=== PATIENT | female | born 1965 | race Caucasian/White ===

== ENCOUNTER 2016-09-12 13:09 | Observation (INO) | payer OTHER ==
[2016-09-12] MEDS ORDERED: NITROGLYCERIN SUBLINGUAL 1/150 0.4 MG TAB SL ONE ×2 (13:29→20:59)
[2016-09-12] MEDS ORDERED: ASPIRIN 81 MG CHEWABLE TABLETS PO ONE (13:29)
[2016-09-12] MEDS ORDERED: ASPIRIN 81 MG CHEWABLE TABLETS ONE (13:32)
[2016-09-12] MEDS ORDERED: NITROGLYCERIN SUBLINGUAL 1/150 0.4 MG TAB ONE (13:33)
[2016-09-12 13:51] LABS: BASOPHIL 1.2 % (0-2.0); EOSINOPHIL 2.1 % (0-4.5); MCH 29.8 pg (25.7-33.7); MCHC 33.4 g/dl (32.0-36.0); MEAN CELL VOLUME 89.4 fl (80-96); MEAN PLT VOLUME 11.5 fl (7.5-11.1); NEUTROPHILS 65.4 % (42.8-82.8); PLATELET COUNT 238 K/MM3 (134-434); RDW 12.7 % (11.6-15.6); WHITE BLOOD COUNT 9.6 K/mm3 (4.0-10.0)
--- NOTE | 2016-09-12 13:53 | PDOC ---
History of Present Illness - General Chief Complaint: Chest Pain Stated Complaint: CHEST PAIN/PANIC ATTACK Time Seen by Provider: 09/12/16 13:13 History Source: Patient, Old Records Exam Limitations: No Limitations - History of Present Illness Initial Comments: 09/12/16 13:50 51-year-old female with past medical history of chronic neck pain presents to the emergency department for left-sided chest tightness reading down left arm. The patient reports that she was in her usual state health until about 12:00 PM , patient started developing tightness. No suspicion short of breath, nausea, vomiting, diaphoresis. Patient reports that the pain is constant despite no exertion. Patient is unsure if there is any exertional component. Denies recent illnesses, fevers, chills, cough, vomiting. Denies prior history of pulmonary embolisms or DVTs. Patient has no known family history of cardiac disease. She reports having a general stress test several years ago and believes it was negative. Past History - Past Medical History Allergies/Adverse Reactions: Allergies Allergy/AdvReac Type Severity Reaction Status Date / Time No Known Allergies Allergy Verified 09/12/16 13:12 Home Medications: Ambulatory Orders Gabapentin 300 mg PO TID 02/22/15 Gabapentin 600 mg PO HS 02/17/16 Aspirin Coated [Ecotrin -] 81 mg PO ASDIR 09/12/16 Anemia: No Asthma: No Cancer: No Cardiac Disorders: No CVA: No COPD: No CHF: No Dementia: No Diabetes: No GI Disorders: No Disorders: No HTN: No Hypercholesterolemia: No Liver Disease: No Seizures: No Thyroid Disease: No - Surgical History Orthopedic Surgery: Yes (Rt Hand) - Immunization History Immunization Up to Date: Yes - Psycho/Social/Smoking Cessation Hx Anxiety: No Suicidal Ideation: No Smoking History: Former smoker Have you smoked in the past 12 months: No Number of Cigarettes Smoked Daily: 10 If you are a former smoker, when did you quit?: 2010 Information on smoking cessation initiated: No Hx Alcohol Use: No Drug/Substance Use Hx: No Substance Use Type: None Hx Substance Use Treatment: No Review of Systems - Review of Systems Able to Perform ROS?: Yes Comments:: 09/12/16 13:51 GENERAL/CONSTITUTIONAL: No fever, weakness. HEAD, EYES, EARS, NOSE AND THROAT: No change in vision. No ear pain or discharge. No sore throat. CARDIOVASCULAR: +chest tightness. No shortness of breath. RESPIRATORY: No cough, wheezing, or hemoptysis. GASTROINTESTINAL: No abdominal pain, nausea, vomiting, diarrhea, or decreased PO intolerance. GENITOURINARY: No dysuria, frequency, or change in urination. MUSCULOSKELETAL: No joint or muscle swelling or pain. No neck or back pain. SKIN: No rash NEUROLOGIC: No headache, vertigo, loss of consciousness, or change in strength/ sensation. ENDOCRINE: No increased thirst. No abnormal weight change. HEMATOLOGIC/LYMPHATIC: No anemia, easy bleeding, or history of blood clots. ALLERGIC/IMMUNOLOGIC: No hives or skin allergy. *Physical Exam - Vital Signs Last Vital Signs Temp Pulse Resp BP Pulse Ox 98.7 F 71 20 103/78 100 09/12/16 13:15 09/12/16 13:21 09/12/16 13:21 09/12/16 13:21 09/12/16 13:21 - Physical Exam Comments: 09/12/16 13:51 GENERAL: Awake, alert, and fully oriented, in no acute distress. HEAD: No signs of trauma EYES: PERRLA, EOMI, sclera anicteric, conjunctiva clear ENT: Auricles normal inspection, hearing grossly normal, nares patent, oropharynx clear without exudates. NECK: Normal ROM, supple, no lymphadenopathy, JVD, or masses LUNGS: Breath sounds equal, clear to auscultation bilaterally. No wheezes, and no crackles HEART: Regular rate and rhythm, normal S1 and S2, no murmurs, rubs or gallops ABDOMEN: Soft, nontender, normoactive bowel sounds. No guarding, no rebound. No masses EXTREMITIES: Normal range of motion, no edema. No clubbing or cyanosis. No cords, erythema, or tenderness NEUROLOGICAL: Cranial nerves II through XII grossly intact. Normal speech, normal gait SKIN: Warm, Dry, normal turgor, no rashes or lesions noted. Heart Score/ECG Review - History History: Moderately suspicious - Electrocardiogram EKG: Normal - Age Age: 45-65 - Risk Factors Based on the list above the patient has:: No risk factors known - Troponin Troponin: </= normal limit - Score Heart Score - Total: 2 #1 ECG reviewed & interpreted by me at: 13:20 09/12/16 13:51 NSR 65, no std/tyra, T wave flat aVL, normal axis, normal intervals, good R wave progression, QTC 407 msec ED Treatment Course - LABORATORY CBC & Chemistry Diagram: 09/12/16 13:30 09/12/16 13:42 - RADIOLOGY Radiology Studies Ordered: Category Date Time Status CHEST X-RAY PORTABLE* [RAD] Stat Radiology 09/12/16 13:29 Ordered - Medications Given in the ED: ED Medications Discontinued Medications Generic Name Dose Route Start Last Admin Trade Name Gregoria PRN Reason Stop Dose Admin Aspirin 243 mg 09/12/16 13:29 09/12/16 13:41 Asa - PO 09/12/16 13:30 243 mg ONCE ONE Administration Nitroglycerin 0.4 mg 09/12/16 13:29 09/12/16 13:41 Nitrostat - SL 09/12/16 13:30 0.4 mg ONCE ONE Administration Medical Decision Making - Medical Decision Making 09/12/16 13:52 A portion of this note was documented by scribe services under my direction. I have reviewed the details of the note, within reason, and agree with the documentation with the following case summary and management plan written by me. Patient treated in the ED. Patient arrives by ambulance to the emergency department. Nursing notes are reviewed and incorporated into the medical decision-making. Vital signs reviewed. Peripheral IV access obtained by the nurse, laboratory studies are drawn and sent, reviewed and interpreted by myself. Vital Signs Temp Pulse Resp BP Pulse Ox 98.7 F 71 20 103/78 100 09/12/16 13:15 09/12/16 13:21 09/12/16 13:21 09/12/16 13:21 09/12/16 13:21 51-year-old female presents with left chest tightness with radiation to left arm. We'll need to rule out myocardial infarction. Labs including troponin, chest x-ray. We'll trial nitroglycerin. Patient already took one baby aspirin after her pain initiated. We'll give 240 mg a baby aspirin. 09/12/16 14:00 Nitro improved pain from 8 to 3. 09/12/16 14:54 CBC, BMP 09/12/16 13:30 09/12/16 13:42 CMP Sodium 135 mmol/L (136-145) L 09/12/16 13:42 Potassium 4.3 mmol/L (3.5-5.1) 09/12/16 13:42 Chloride 104 mmol/L (98-107) 09/12/16 13:42 Carbon Dioxide 26 mmol/L (22-28) 09/12/16 13:42 Anion Gap 5 (8-16) L 09/12/16 13:42 BUN 13 mg/dl (7-18) 09/12/16 13:42 Creatinine 0.8 mg/dl (0.6-1.3) 09/12/16 13:42 Creat Clearance w eGFR > 60 (>60) 09/12/16 13:42 Random Glucose 93 mg/dl (74-106) 09/12/16 13:42 Calcium 9.5 mg/dl (8.4-10.2) 09/12/16 13:42 Total Bilirubin 0.6 mg/dl (0.2-1.0) 09/12/16 13:42 AST 22 U/L (10-42) 09/12/16 13:42 ALT 17 U/L (10-40) D 09/12/16 13:42 Alkaline Phosphatase 55 U/L (32-92) 09/12/16 13:42 Creatine Kinase 103 IU/L (26-140) 09/12/16 13:42 Troponin I < 0.03 ng/ml (0.03-0.50) L 09/12/16 13:42 Total Protein 7.1 g/dl (6.4-8.3) 09/12/16 13:42 Albumin 4.3 g/dl (3.5-5.0) 09/12/16 13:42 Trop negative. Case discussed with Dr. Vuong. She accepts for tele observation. Case discussed in detail with admitting physician including history, physical exam and ancillary studies. Admitting physician has assumed care for the patient, will follow all pending diagnostics and will complete the evaluation and treatment. *DC/Admit/Observation/Transfer Diagnosis at time of Disposition: Sensation of chest tightness - Discharge Dispostion Condition at time of disposition: Stable Admit: Yes
[2016-09-12 14:12] LABS: ACTIVATED PTT 32.7 SECONDS (24.0-38.9)
[2016-09-12 14:15] LABS: ALBUMIN 4.3 g/dl (3.5-5.0); ALK PHOS 55 U/L (32-92); ANION GAP 5 (8-16); BILIRUBIN,TOTAL 0.6 mg/dl (0.2-1.0); CALCIUM 9.5 mg/dl (8.4-10.2); CO2 26 mmol/L (22-28); CPK(DFH) 103 IU/L (26-140); CREATININE 0.8 mg/dl (0.6-1.3); GLUCOSE,RANDOM 93 mg/dl (74-106); SGOT/AST 22 U/L (10-42); SGPT/ALT 17 U/L (10-40); TOT PROT 7.1 g/dl (6.4-8.3)
[2016-09-12 14:16] LABS: INR 1.12 (0.82-1.09); PROTHROMBIN TIME (PATIENT) 12.5 SEC (10.2-13.0)
[2016-09-12 14:31] LABS: TROPONIN I (DFP) < 0.03 ng/ml (0.03-0.50)
--- NOTE | 2016-09-12 15:57 | EKG ---
Test Reason : Blood Pressure : / mmHG Vent. Rate : 065 BPM Atrial Rate : 065 BPM P-R Int : 146 ms QRS Dur : 070 ms QT Int : 392 ms P-R-T Axes : 076 085 075 degrees QTc Int : 407 ms NORMAL SINUS RHYTHM NORMAL ECG NO PREVIOUS ECGS AVAILABLE Confirmed by LUIS TEJADA MD ([id number]) on 09/12/2016 3:56:52 PM Referred By: JAZZ PIERRE Confirmed By:LUIS TEJADA MD
[2016-09-12 17:15] VITALS: BMI 17.2
[2016-09-12 20:44] LABS: CPK(DFH) 92 IU/L (26-140)
[2016-09-12] MEDS ORDERED: ACETAMINOPHEN 325 MG TABLET (FP) PO PRN (20:59)
[2016-09-12 21:01] LABS: TROPONIN I (DFP) < 0.03 ng/ml (0.03-0.50)
--- NOTE | 2016-09-12 21:51 | HP ---
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 The pain is associated with a flushed feeling. Pain initially started around 12 noon, but was alleviated by nitroglycerin in the ED. She has had 2 further episodes since and states the pain is now a 5/10. The pain has never completely gone away since it started earlier today. Denies any SOB, palpitations or abdominal pain. Pt states that she and her family have had an increased stress level of late. Her son was murdered 18 months ago and she has not been the same since. ER course was notable for: (1) troponin neg (2) ECG WNL (3) CXR no acute diseas Recent Travel: pt denies PAST MEDICAL HISTORY: cervical arthritis right wrist/hand nerve damage PAST SURGICAL HISTORY: right wrist/hand Social History: Smoking: pt denies Alcohol: pt denies Drugs: pt denies Family History: mother alive and well, no medical problems father alive, "spinal stroke" at age 67, no other medical problems brother alive and well, no medical problems grandmother age 87, [place] grandfather alive, with renal stones, sepsis, currently hospitalized Allergies No Known Allergies Allergy (Verified 09/12/16 13:12) HOME MEDICATIONS: 3 Medication Instructions Recorded Gabapentin 300 mg PO TID 02/22/15 Gabapentin 600 mg PO HS 02/17/16 Aspirin Coated [Ecotrin -] 81 mg PO ASDIR 09/12/16 REVIEW OF SYSTEMS CONSTITUTIONAL: Present: diaphoresis, flushed feeling Absent: fever, chills, generalized weakness, malaise, loss of appetite, weight change HEENT: Absent: rhinorrhea, nasal congestion, throat pain, throat swelling, difficulty swallowing, mouth swelling, ear pain, eye pain, visual changes CARDIOVASCULAR: Present: chest pain Absent: syncope, palpitations, irregular heart rate, lightheadedness, peripheral edema RESPIRATORY: Absent: cough, shortness of breath, dyspnea with exertion, orthopnea, wheezing, stridor, hemoptysis GASTROINTESTINAL: Absent: abdominal pain, abdominal distension, nausea, vomiting, diarrhea, constipation, melena, hematochezia GENITOURINARY: Absent: dysuria, frequency, urgency, hesitancy, hematuria, flank pain, genital pain MUSCULOSKELETAL: Absent: myalgia, arthralgia, joint swelling, back pain, neck pain SKIN: Absent: rash, itching, pallor HEMATOLOGIC/IMMUNOLOGIC: Absent: easy bleeding, easy bruising, lymphadenopathy, frequent infections ENDOCRINE: Absent: unexplained weight gain, unexplained weight loss, heat intolerance, cold intolerance NEUROLOGIC: Absent: headache, focal weakness or paresthesias, dizziness, unsteady gait, seizure, mental status changes, bladder or bowel incontinence PSYCHIATRIC: Absent: anxiety, depression, suicidal or homicidal ideation, hallucinations. PHYSICAL EXAMINATION Vital Signs - 24 hr 3 09/12/16 09/12/16 09/12/16 15:27 16:40 16:45 Temperature 98.5 F 98.5 F Pulse Rate 69 69 Pulse Rate [ 60 Apical] Respiratory 18 18 18 Rate Blood Pressure 129/74 129/74 Blood Pressure 112/84 [Arm] O2 Sat by Pulse 100 99 99 Oximetry (%) GENERAL: Awake, alert, and fully oriented, in no acute distress. HEAD: Normal with no signs of trauma. EYES: Pupils equal, round and reactive to light, extraocular movements intact, sclera anicteric, conjunctiva clear. No lid lag. EARS, NOSE, THROAT: Ears normal, nares patent, oropharynx clear without exudates. Moist mucous membranes. NECK: Normal range of motion, supple without lymphadenopathy, JVD, or masses. LUNGS: Breath sounds equal, clear to auscultation bilaterally. No wheezes, and no crackles. No accessory muscle use. HEART: Regular rate and rhythm, normal S1 and S2 without murmur, rub or gallop. ABDOMEN: Soft, nontender, not distended, normoactive bowel sounds, no guarding, no rebound, no masses. No hepatomegaly or splenomegaly. MUSCULOSKELETAL: Normal range of motion at all joints. No bony deformities or tenderness. No CVA tenderness. UPPER EXTREMITIES: 2+ pulses, warm, well-perfused. No cyanosis. No clubbing. No peripheral edema. LOWER EXTREMITIES: 2+ pulses, warm, well-perfused. No calf tenderness. No peripheral edema. NEUROLOGICAL: Cranial nerves II-XII intact. Normal speech. Normal gait. PSYCHIATRIC: Cooperative. Good eye contact. Appropriate mood and affect. SKIN: Warm, dry, normal turgor, no rashes or lesions noted, normal capillary refill. Laboratory Results - last 24 hr 3 09/12/16 09/12/16 09/12/16 09/12/16 13:30 13:42 13:42 20:00 WBC 9.6 RBC 4.38 Hgb 13.1 Hct 39.2 MCV 89.4 MCHC 33.4 RDW 12.7 Plt Count 238 MPV 11.5 H D Neutrophils % 65.4 Lymphocytes % 26.4 D Monocytes % 4.9 Eosinophils % 2.1 Basophils % 1.2 INR 1.12 PTT (Actin FS) 32.7 Sodium 135 L Potassium 4.3 Chloride 104 Carbon Dioxide 26 Anion Gap 5 L BUN 13 Creatinine 0.8 Creat Clearance w eGFR > 60 Random Glucose 93 Calcium 9.5 Total Bilirubin 0.6 AST 22 ALT 17 D Alkaline Phosphatase 55 Creatine Kinase 103 92 Troponin I < 0.03 L < 0.03 L Total Protein 7.1 Albumin 4.3 Chest xray, portable: Impression. No evidence of active pneumonic disease. EC: NSR, rate 65, QTC 407. no sig ST changes 2049: NSR, rate 66, QTC 421, less than 1mm ST segment elevations noted 2, 3, avf , v2-v6 ASSESSMENT/PLAN: 51yF with PMH cervical arthritis, right hand neuropathy presented with chest pain. She has been admitted for further observation and evaluation. Chest pain - ECG with ? possible pericarditis vs normal variant. - start ibuprofen 600mg Q8H, if further w/u c/w pericarditis, add colchicine - ESR, CRP ordered - echo ordered, ? broken heart syndrome? - troponin neg x 2, trend x 1 more - cardiology consult wrist/hand neuropathy - cont home neurontin DVT PPX - chemoprophylaxis deferred, expected LOS <48h FEN - tolerating po, IVF not indicated - repeat labs in am - regular, low fat diet Dispo: Pt currently requires inpatient observation for management of her emergent condition. Visit type - Emergency Visit Emergency Visit: Yes ED Registration Date: 09/12/16 Care time: The patient presented to the Emergency Department on the above date and was hospitalized for further evaluation of their emergent condition. - New Patient This patient is new to me today: Yes Date on this admission: 09/12/16 - Critical Care Critical Care patient: No
[2016-09-12] MEDS ORDERED: GABAPENTIN 300 MG CAPSULE (FP) PO SCH ×2 (22:00)
[2016-09-12] MEDS ORDERED: PATIENT'S OWN MEDICATION (NON-FORMULARY) (Gabapentin [Gabapentin] 600 MG) PO SCH (22:00)
[2016-09-12] MEDS: IBUPROFEN 600 MG TABLET (FP) PO SCH (22:10)
[2016-09-13] MEDS: IBUPROFEN 600 MG TABLET (FP) PO SCH ×2 (06:18→13:58)
[2016-09-13] MEDS: GABAPENTIN 300 MG CAPSULE (FP) PO SCH ×2 (06:18→10:03)
--- NOTE | 2016-09-13 07:51 | CON.CARD ---
Consult Consult Specialty:: Cardiology Referred by:: Hospitalist Reason for Consultation:: Cardiac evaluation - History of Present Illness Chief Complaint: Chest pain History of Present Illness: Patient is a 51 year old female with no significant PMH, denies HTN, hypercholesterolemia or diabetes mellitus who presents with sharp left sided chest pain radiating to left arm. It is not related to exercise or exertion or deep breath. She denies shortness of breath or palpitations, however; patient had some palpitation last night while in the hospital. She denies paroxysmal nocturnal dyspnea or orthopnea. She denies fever or chills. She denies headache or lightheadedness. She denies any weakness both upper or lower extremities. ECG was unremarkable except for subtle ST changes suggestive of possible pericarditis vs. normal variant. but ESR and CRP was normal. Serial cardiac enzyme was normal. Cardiology consultation was called for further evaluation. Patient was given ASA and also was given Ibuprofen. - History Source History Provided By: Patient, Medical Record Limitations to Obtaining History: No Limitations - Past Medical History ...: No - Past Surgical History Additional Surgical History: Right wrist surgery - Alcohol/Substance Use Hx Alcohol Use: No History of Substance Use: reports: None - Smoking History Smoking history: Former smoker Have you smoked in the past 12 months: No Aproximately how many cigarettes per day: 10 If you are a former smoker, when did you quit?: 2010 Home Medications - Allergies Allergies/Adverse Reactions: Allergies Allergy/AdvReac Type Severity Reaction Status Date / Time No Known Allergies Allergy Verified 09/12/16 13:12 - Home Medications Home Medications: Ambulatory Orders Gabapentin 300 mg PO TID 02/22/15 Gabapentin 600 mg PO HS 02/17/16 Aspirin Coated [Ecotrin -] 81 mg PO ASDIR 09/12/16 Family Disease History - Family Disease History Family History: Denies Review of Systems - Review of Systems Constitutional: denies: Chills, Fever Cardiovascular: reports: Chest Pain. denies: Palpitations, Shortness of Breath Respiratory: denies: Cough, Hemoptysis, Orthopnea, PND, SOB, SOB on Exertion Gastrointestinal: denies: Abdominal Pain, Constipation, Diarrhea, Melena, Nausea , Rectal Bleeding, Vomiting Genitourinary: denies: Dysuria Neurological: denies: Dizziness, Headache, Seizure, Syncope Vital Signs: Vital Signs Temperature 97.7 F 09/13/16 06:00 Pulse Rate 53 L 03/29/17 06:00 Respiratory Rate 18 09/13/16 06:00 Blood Pressure 98/61 09/13/16 06:00 O2 Sat by Pulse Oximetry (%) 99 09/13/16 06:00 Neck: Yes: Supple Respiratory: Yes: CTA Bilaterally Gastrointestinal: Yes: Normal Bowel Sounds, Soft. No: Tenderness Cardiovascular: Yes: Regular Rate and Rhythm JVD: No Carotid Bruit: No PMI: Non-Displaced Heart Sounds: Yes: S1, S2. No: Gallop Murmur: No: Systolic Murmur, Diastolic Murmur Edema: No - Other Data Labs, Other Data: INR, PTT INR 1.12 (0.82-1.09) 09/12/16 13:42 Troponin, BNP 09/12/16 20:00 Troponin I < 0.03 L Laboratory Results - last 24 hr 09/12/16 09/12/16 09/12/16 13:30 13:42 13:42 WBC 9.6 RBC 4.38 Hgb 13.1 Hct 39.2 MCV 89.4 MCHC 33.4 RDW 12.7 Plt Count 238 MPV 11.5 H D Neutrophils % 65.4 Lymphocytes % 26.4 D Monocytes % 4.9 Eosinophils % 2.1 Basophils % 1.2 ESR INR 1.12 PTT (Actin FS) 32.7 Sodium 135 L Potassium 4.3 Chloride 104 Carbon Dioxide 26 Anion Gap 5 L BUN 13 Creatinine 0.8 Creat Clearance w eGFR > 60 Random Glucose 93 Calcium 9.5 Total Bilirubin 0.6 AST 22 ALT 17 D Alkaline Phosphatase 55 Creatine Kinase Troponin I C-Reactive Protein Total Protein 7.1 Albumin 4.3 09/12/16 09/12/16 09/12/16 13:42 20:00 21:50 WBC RBC Hgb Hct MCV MCHC RDW Plt Count MPV Neutrophils % Lymphocytes % Monocytes % Eosinophils % Basophils % ESR INR PTT (Actin FS) Sodium Potassium Chloride Carbon Dioxide Anion Gap BUN Creatinine Creat Clearance w eGFR Random Glucose Calcium Total Bilirubin AST ALT Alkaline Phosphatase Creatine Kinase 103 92 Troponin I < 0.03 L < 0.03 L C-Reactive Protein < 0.3 Total Protein Albumin 09/12/16 21:50 WBC RBC Hgb Hct MCV MCHC RDW Plt Count MPV Neutrophils % Lymphocytes % Monocytes % Eosinophils % Basophils % ESR 9 INR PTT (Actin FS) Sodium Potassium Chloride Carbon Dioxide Anion Gap BUN Creatinine Creat Clearance w eGFR Random Glucose Calcium Total Bilirubin AST ALT Alkaline Phosphatase Creatine Kinase Troponin I C-Reactive Protein Total Protein Albumin Sinus rhythm and likely normal but possible subtle ST changes ? pericarditis cannot be excluded Echo: Pending Imaging - Results Chest X-ray: Report Reviewed (Unremarkable) EKG: Report Reviewed Problem List - Problems (1) Chest pain Code(s): R07.9 - CHEST PAIN, UNSPECIFIED Qualifiers: Chest pain type: unspecified Qualified Code(s): R07.9 - Chest pain, unspecified Assessment/Plan 1. Chest pain, atypical, ?pleuritic, rule out pericarditis, possible musculoskeletal PLAN: 1.Transthoracic echocardiography to assess pericardium, LV and valvular function. 2. Further management pending above testing. Negative ESR and CRP goes against pericarditis and ECG does not confirm this as it is nonspecific 3. Continue ASA for now If above negative, discharge planning with short term use of Ibuprofen at a lower dose Further plans are to follow Efrain Sanderson MD
--- NOTE | 2016-09-13 09:08 | EKG ---
Test Reason : Blood Pressure : / mmHG Vent. Rate : 066 BPM Atrial Rate : 066 BPM P-R Int : 152 ms QRS Dur : 066 ms QT Int : 402 ms P-R-T Axes : 072 084 068 degrees QTc Int : 421 ms NORMAL SINUS RHYTHM NORMAL ECG WHEN COMPARED WITH ECG OF 12-SEP-2016 13:18, NO SIGNIFICANT CHANGE WAS FOUND Confirmed by ALEX SALVADOR MD ([id number] on 09/13/2016 9:08:07 AM Referred By: SHIKHA PALMER Confirmed By:ALEX SALVADOR MD
[2016-09-13 09:14] LABS: BASOPHIL 0.4 % (0-2.0); EOSINOPHIL 5.1 % (0-4.5); MCH 30.3 pg (25.7-33.7); MCHC 33.6 g/dl (32.0-36.0); MEAN CELL VOLUME 90.4 fl (80-96); MEAN PLT VOLUME 11.7 fl (7.5-11.1); NEUTROPHILS 50.5 % (42.8-82.8); PLATELET COUNT 215 K/MM3 (134-434); RDW 13.1 % (11.6-15.6); WHITE BLOOD COUNT 6.9 K/mm3 (4.0-10.0)
[2016-09-13 09:25] LABS: CPK(DFH) 85 IU/L (26-140)
[2016-09-13 09:28] LABS: CALCIUM 9.2 mg/dl (8.4-10.2); CREATININE 0.8 mg/dl (0.6-1.3); PHOSPHOROUS 3.9 mg/dl (2.5-4.6)
[2016-09-13 10:00] LABS: TROPONIN I (DFP) < 0.03 ng/ml (0.03-0.50)
[2016-09-13] MEDS ORDERED: PANTOPRAZOLE 20 MG TABLET (FP) PO SCH (10:00)
[2016-09-13] MEDS ORDERED: ASPIRIN COATED 81 MG TABLET.EC PO SCH (10:00)
--- NOTE | 2016-09-13 12:32 | DS ---
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 The pain is associated with a flushed feeling. Pain initially started around 12 noon, but was alleviated by nitroglycerin in the ED. She has had 2 further episodes since and states the pain is now a 5/10. The pain has never completely gone away since it started earlier today. Denies any SOB, palpitations or abdominal pain. Pt states that she and her family have had an increased stress level of late. Her son was murdered 18 months ago and she has not been the same since. ER course was notable for: (1) troponin neg (2) ECG WNL (3) CXR no acute diseas Vital Signs Period Temp Pulse Resp BP Sys/Jarvis Pulse Ox Last 24 Hr 97.7 F-98.5 F 53-86 18-18 96-129/55-84 99-100 PHYSICAL EXAM GENERAL: The patient is awake, alert, and fully oriented, in no acute distress. HEAD: Normal with no signs of trauma. EYES: PERRL, extraocular movements intact, sclera anicteric, conjunctiva clear. ENT: Ears normal, nares patent, oropharynx clear without exudates, moist mucous membranes. NECK: Trachea midline, full range of motion, supple. LUNGS: Breath sounds equal, clear to auscultation bilaterally, no wheezes, no crackles, no accessory muscle use. HEART: Regular rate and rhythm, S1, S2 without murmur, rub or gallop. ABDOMEN: Soft, nontender, nondistended, normoactive bowel sounds, no guarding, no rebound, no hepatosplenomegaly, no masses. EXTREMITIES: 2+ pulses, warm, well-perfused, no edema. NEUROLOGICAL: Cranial nerves II through XII grossly intact. Normal speech, gait not observed. PSYCH: Normal mood, normal affect. SKIN: Warm, dry, normal turgor, no rashes or lesions noted. LABS Laboratory Results - last 24 hr 09/12/16 09/12/16 09/12/16 20:00 21:50 21:50 WBC RBC Hgb Hct MCV MCHC RDW Plt Count MPV Neutrophils % Lymphocytes % Monocytes % Eosinophils % Basophils % ESR 9 Sodium Potassium Chloride Carbon Dioxide Anion Gap BUN Creatinine Random Glucose Hemoglobin A1c % Calcium Phosphorus Magnesium Creatine Kinase 92 Troponin I < 0.03 L C-Reactive Protein < 0.3 Triglycerides Cholesterol Total LDL Cholesterol HDL Cholesterol 09/13/16 09/13/16 09/13/16 07:00 07:00 07:00 WBC 6.9 RBC 4.30 Hgb 13.1 Hct 38.9 MCV 90.4 MCHC 33.6 RDW 13.1 Plt Count 215 MPV 11.7 H Neutrophils % 50.5 D Lymphocytes % 36.8 D Monocytes % 7.2 Eosinophils % 5.1 H D Basophils % 0.4 ESR Sodium 136 Potassium 4.2 Chloride 102 Carbon Dioxide 28 Anion Gap 6 L BUN 15 Creatinine 0.8 Random Glucose 98 Hemoglobin A1c % Calcium 9.2 Phosphorus 3.9 Magnesium 2.0 Creatine Kinase 85 Troponin I < 0.03 L C-Reactive Protein Triglycerides 87 Cholesterol 167 Total LDL Cholesterol 108 HDL Cholesterol 42 09/13/16 08:06 WBC RBC Hgb Hct MCV MCHC RDW Plt Count MPV Neutrophils % Lymphocytes % Monocytes % Eosinophils % Basophils % ESR Sodium Potassium Chloride Carbon Dioxide Anion Gap BUN Creatinine Random Glucose Hemoglobin A1c % 5.7 D Calcium Phosphorus Magnesium Creatine Kinase Troponin I C-Reactive Protein Triglycerides Cholesterol Total LDL Cholesterol HDL Cholesterol Laboratory Tests 09/12/16 09/12/16 09/13/16 13:42 20:00 07:00 Troponin I < 0.03 L < 0.03 L < 0.03 L IMAGING chest xray, portable: Impression. No evidence of active pneumonic disease. EC: NSR, rate 65, QTC 407. no sig ST changes 0: NSR, rate 66, QTC 421, less than 1mm ST segment elevations noted 2, 3, avf , v2-v6 echocardiogram: LV EF 70-75% normal systolic and diastolic function HOSPITAL COURSE: patient is a 51-year-old female was admitted from the emergency department to observation for chest pain rule out ACS. EKG was notable for less than [address] elevations questionable early pericarditis, colchicine was ordered, ESR and CRP resulted as negative. Echocardiogram noted to be WNL. Troponin 3 WNL. Cardiology was consulted. Date of Admission:09/12/16 Date of Discharge: 09/13/16 Minutes to complete discharge: 45 Discharge Summary Reason For Visit: CHEST PAIN Current Active Problems Chest tightness (Acute) Condition: Improved - Instructions Diet, Activity, Other Instructions: resume regular diet continue with ibuprofen as needed for pain resume all medications Return to the emergency department immediately with ANY new, persistent or worsening symptoms. You MUST call and follow up with your doctor tomorrow. Please make sure your doctor reviews the results of your hospital stay. Referrals: Efrain Sanderson MD [Staff Physician] - Disposition: HOME - Home Medications Comprehensive Discharge Medication List: Ambulatory Orders Gabapentin 300 mg PO TID 02/22/15 Gabapentin 600 mg PO HS 02/17/16 Aspirin Coated [Ecotrin -] 81 mg PO ASDIR 09/12/16 This patient is new to me today: Yes Date on this admission: 09/12/16 Emergency Visit: Yes ED Registration Date: 09/12/16 Care time: The patient presented to the Emergency Department on the above date and was hospitalized for further evaluation of their emergent condition. Critical Care patient: No - Discharge Referral Referred to [facility] No
[2016-09-13 15:15] VITALS: BP 96/54; PULSE 76; TEMP 98.2
== END 2016-09-13 15:20 | disposition home or self-care (01) ==
LOC: FER 13:09 → FM/S 14:59
PROVIDERS: ADMIT Internal Medicine; ATTEND Nurse Practitioner Family
DX: R07.89 Other chest pain (principal); G62.9 Polyneuropathy, unspecified; Z87.891 Personal history of nicotine dependence
CPT/HCPCS: 36415; 71010-TC; 80048; 80053; 80061; 82550; 83036; 83735; 84100; 84484; 85025; 85610; 85651; 85730; 86140; 93005; 93306-TC; 99285-25; G0378

== ENCOUNTER 2016-12-01 11:29 | Emergency (ER) | payer OTHER ==
--- NOTE | 2016-12-01 11:35 | PDOC ---
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 The pain is associated with a flushed feeling. 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 She was seated when her pain began. It is described as sharp and squeezing. She rates pain as "Severe". Pain starts in the center of the chest, radiates through out the chest and into upper arm. Symptoms associated with a squeezing , lasting several minutes and ends with a connors (which she likens to how you feel after a head connors) which causes her ears/face to be warm. No fevers or chills No cough She does have palpitations No chest wall trauma She was folding laundry yesterday but does not think this was excessive work for her Denies any SOB, palpitations or abdominal pain. She was admitted to the hospital in August Work up at that time included ECHO and EKG Concern was for pericarditis, but less likely given ECHO. She was discharged on Motrin which she took for several days and her pain resolved. She has had no pain since August PMH: cervical arthritis right wrist/hand nerve damage PSH: right wrist/hand Social: Smoking: pt denies Alcohol: pt denies Drugs: pt denies NKDA REVIEW OF SYSTEMS CONSTITUTIONAL: Present: diaphoresis, flushed feeling Absent: fever, chills, generalized weakness, malaise, loss of appetite, weight change HEENT: Absent: rhinorrhea, nasal congestion, throat pain, throat swelling, difficulty swallowing, mouth swelling, ear pain, eye pain, visual changes CARDIOVASCULAR: Present: chest pain Absent: syncope, palpitations, irregular heart rate, lightheadedness, peripheral edema RESPIRATORY: Absent: cough, shortness of breath, dyspnea with exertion, orthopnea, wheezing, stridor, hemoptysis GASTROINTESTINAL: Absent: abdominal pain, abdominal distension, nausea, vomiting, diarrhea, constipation, melena, hematochezia GENITOURINARY: Absent: dysuria, frequency, urgency, hesitancy, hematuria, flank pain, genital pain MUSCULOSKELETAL: Absent: myalgia, arthralgia, joint swelling, back pain, neck pain SKIN: Absent: rash, itching, pallor HEMATOLOGIC/IMMUNOLOGIC: Absent: easy bleeding, easy bruising, lymphadenopathy, frequent infections ENDOCRINE: Absent: unexplained weight gain, unexplained weight loss, heat intolerance, cold intolerance NEUROLOGIC: Absent: headache, focal weakness or paresthesias, dizziness, unsteady gait, seizure, mental status changes, bladder or bowel incontinence PSYCHIATRIC: Absent: anxiety, depression, suicidal or homicidal ideation, hallucinations. PHYSICAL EXAMINATION GENERAL: Awake, alert, and fully oriented, in no acute distress. HEAD: Normal with no signs of trauma. EYES: Pupils equal, round and reactive to light, extraocular movements intact, sclera anicteric, conjunctiva clear. No lid lag. EARS, NOSE, THROAT: Ears normal, nares patent, oropharynx clear without exudates. Moist mucous membranes. NECK: Normal range of motion, supple without lymphadenopathy, JVD, or masses. LUNGS: Breath sounds equal, clear to auscultation bilaterally. No wheezes, and no crackles. No accessory muscle use. HEART: Regular rate and rhythm, normal S1 and S2 without murmur, rub or gallop. ABDOMEN: Soft, nontender, not distended, normoactive bowel sounds, no guarding, no rebound, no masses. No hepatomegaly or splenomegaly. MUSCULOSKELETAL: Normal range of motion at all joints. No bony deformities or tenderness. No CVA tenderness. UPPER EXTREMITIES: 2+ pulses, warm, well-perfused. No cyanosis. No clubbing. No peripheral edema. LOWER EXTREMITIES: 2+ pulses, warm, well-perfused. No calf tenderness. No peripheral edema. NEUROLOGICAL: Cranial nerves II-XII intact. Normal speech. Normal gait. PSYCHIATRIC: Cooperative. Good eye contact. Appropriate mood and affect. SKIN: Warm, dry, normal turgor, no rashes or lesions noted, normal capillary refill. 12/01/16 11:37 12/01/16 11:50 12/01/16 11:53 Past History - Past Medical History Allergies/Adverse Reactions: Allergies Allergy/AdvReac Type Severity Reaction Status Date / Time No Known Allergies Allergy Verified 12/01/16 11:31 Home Medications: Ambulatory Orders Gabapentin 300 mg PO TID 02/22/15 Gabapentin 600 mg PO HS 02/17/16 Aspirin Coated [Ecotrin -] 81 mg PO PRN PRN 09/12/16 Ibuprofen [Motrin -] 600 mg PO Q8H tablet 09/13/16 Anemia: No Asthma: No Cancer: No Cardiac Disorders: No CVA: No COPD: No CHF: No Dementia: No Diabetes: No GI Disorders: No Disorders: No HTN: No Hypercholesterolemia: No Liver Disease: No Seizures: No Thyroid Disease: No - Surgical History Orthopedic Surgery: Yes (Rt Hand) - Immunization History Immunization Up to Date: Yes - Psycho/Social/Smoking Cessation Hx Anxiety: No Suicidal Ideation: No Smoking History: Former smoker Have you smoked in the past 12 months: No Number of Cigarettes Smoked Daily: 10 If you are a former smoker, when did you quit?: 2010 Hx Alcohol Use: No Drug/Substance Use Hx: No Substance Use Type: None Hx Substance Use Treatment: No ED Treatment Course - LABORATORY CBC & Chemistry Diagram: 12/01/16 12:06 12/01/16 12:06 Medical Decision Making - Medical Decision Making 12/01/16 11:57 Pt returns to the ER with complaints of chest pain/pressure DD includes ACS, Pneumonia, Pericarditic, pleural effusion Will do labs Will do EKG Pt will need to stay Cardiology consult 12/01/16 14:42 12/01/16 14:42 Laboratory Tests 09/13/16 12/01/16 12/01/16 07:00 12:06 12:06 WBC 6.9 7.7 Hgb 13.1 13.0 Hct 38.9 37.7 Plt Count 215 211 Anion Gap 8 Creatinine 0.9 Random Glucose 94 Creatine Kinase Troponin I 12/01/16 12:06 WBC Hgb Hct Plt Count Anion Gap Creatinine Random Glucose Creatine Kinase 147 H Troponin I < 0.03 L PT is asymptomatic Case reviewed with Dr Torrez He recommends outpatient work up Will repeat troponin 12/01/16 16:48 Laboratory Tests 12/01/16 15:51 Creatine Kinase 150 H Troponin I < 0.03 L PT understands the importance of following up She will do so as an outpatient Clinical impression: Chest pain *DC/Admit/Observation/Transfer Diagnosis at time of Disposition: Chest pain Qualifiers: Chest pain type: unspecified Qualified Code(s): R07.9 - Chest pain, unspecified - Discharge Dispostion Disposition: HOME Condition at time of disposition: Stable Admit: No - Referrals Referrals: Sage Spain MD [Staff Physician] - - Patient Instructions Printed Discharge Instructions: DI for Atypical Chest Pain, DI for Chest Pain Additional Instructions: Thank you for coming in to the ER today Please follow up with the Commercial Illustrator as you have NOT had a complete cardiac work up Please return to the ER for any other concerns or complaints, or a recurrence of your symptoms Please follow up with your primary physician Please review your lab results
[2016-12-01 11:40] VITALS: BP 128/82; PULSE 68; TEMP 98.1; BMI 19.8
[2016-12-01 12:38] LABS: BASOPHIL 0.7 % (0-2.0); EOSINOPHIL 2.8 % (0-4.5); MCH 30.6 pg (25.7-33.7); MCHC 34.4 g/dl (32.0-36.0); MEAN CELL VOLUME 89.1 fl (80-96); MEAN PLT VOLUME 11.2 fl (7.5-11.1); NEUTROPHILS 62.1 % (42.8-82.8); PLATELET COUNT 211 K/MM3 (134-434); RDW 12.3 % (11.6-15.6); WHITE BLOOD COUNT 7.7 K/mm3 (4.0-10.8)
[2016-12-01 12:39] LABS: CPK(DFH) 147 IU/L (26-140)
[2016-12-01 12:40] LABS: ALK PHOS 59 U/L (32-92); ANION GAP 8 (8-16); BILIRUBIN,TOTAL 0.5 mg/dl (0.2-1.0); CALCIUM 9.5 mg/dl (8.4-10.2); CO2 27 mmol/L (22-28); CREATININE 0.9 mg/dl (0.6-1.3); GLUCOSE,RANDOM 94 mg/dl (74-106); SGOT/AST 18 U/L (10-42); SGPT/ALT 13 U/L (10-40); TOT PROT 6.5 g/dl (6.4-8.3)
[2016-12-01 13:16] LABS: TROPONIN I (DFP) < 0.03 ng/ml (0.03-0.50)
[2016-12-01] MEDS ORDERED: LORazepam 0.5 MG TABLET PO ONE (14:54)
[2016-12-01] MEDS ORDERED: LORazepam 0.5 MG TABLET ONE (14:56)
[2016-12-01 16:34] LABS: CPK(DFH) 150 IU/L (26-140)
[2016-12-01 16:47] LABS: TROPONIN I (DFP) < 0.03 ng/ml (0.03-0.50)
[2016-12-01 17:13] LABS: CK MB 2.8 ng/ml (0.3-4.0)
--- NOTE | 2016-12-04 08:39 | EKG ---
Test Reason : Blood Pressure : / mmHG Vent. Rate : 060 BPM Atrial Rate : 060 BPM P-R Int : 156 ms QRS Dur : 066 ms QT Int : 404 ms P-R-T Axes : 061 074 053 degrees QTc Int : 404 ms SINUS RHYTHM WITH OCCASIONAL PREMATURE VENTRICULAR COMPLEXES OTHERWISE NORMAL ECG WHEN COMPARED WITH ECG OF 12-SEP-2016 19:50, PREMATURE VENTRICULAR COMPLEXES ARE NOW PRESENT Confirmed by MADELEINE ROSARIO, ALEX ([id number]) on 12/04/2016 8:39:13 AM Referred By: HUBER Confirmed By:ALEX SALVADOR MD
== END 2016-12-01 17:07 | disposition home or self-care (01) ==
LOC: FER 11:29
DX: R07.9 Chest pain, unspecified (principal); Z87.891 Personal history of nicotine dependence
CPT/HCPCS: 36415; 71020-TC; 80053; 82550; 82553; 84484; 85025; 93005; 99282-25

== ENCOUNTER 2017-06-15 11:08 | Emergency (ER) | payer OTHER ==
[2017-06-15 11:47] VITALS: BP 131/87; PULSE 89; TEMP 98.1; BMI 19.0
[2017-06-15] MEDS ORDERED: KETOROLAC TROMETHAMINE 60 MG/2 ML VIAL IM ONE (12:40)
--- NOTE | 2017-06-15 12:40 | PDOC ---
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 Since then she has had intermittent chronic pain. She has consulted her hand surgeon, in no further surgery was recommended. Over the last several days she has had increased pain. She has no new injury and does not use the hand for any repetitive movements. She has been taking Advil 600 mg without relief. Review of systems: Denies fever/chills, redness, swelling, induration. Social/family history reviewed and noncontributory Physical exam: Alert and oriented well-developed well-nourished no acute distress cheerful and cooperative Afebrile, vital signs normal Right hand: There is nodularity of the extensor pollicis longus as it crosses the wrist and proximal first metacarpal. It is tender to palpation. There is no erythema, swelling, induration, and no sign of injury including abrasion or laceration. Radial pulses full. Capillary refill is intact. There are no demonstrable focal sensory or motor deficits. Impression: Exacerbation of chronic wrist and hand pain secondary to tendon injury and surgery. Probably some reflex vasoconstriction and neuropathy Plan: Toradol and Vistaril administered with partial relief. Splinted and referred back to her hand surgeon for further evaluation and treatment. Instructed to rest ice and elevate the hand and take medication as directed until further evaluation Past History - Past Medical History Allergies/Adverse Reactions: Allergies Allergy/AdvReac Type Severity Reaction Status Date / Time No Known Allergies Allergy Verified 12/01/16 11:31 Home Medications: Ambulatory Orders Gabapentin 300 mg PO TID 02/22/15 Gabapentin 600 mg PO HS 02/17/16 Aspirin Coated [Ecotrin -] 81 mg PO PRN PRN 09/12/16 Hydroxyzine Pamoate [Vistaril -] 25 mg PO TID PRN #15 capsule 06/15/17 Ketorolac Tromethamine [Toradol] 10 mg PO Q6H #20 tablet 06/15/17 Anemia: No Asthma: No Cancer: No Cardiac Disorders: No CVA: No COPD: No CHF: No Dementia: No Diabetes: No GI Disorders: No Disorders: No HTN: No Hypercholesterolemia: No Liver Disease: No Seizures: No Thyroid Disease: No - Surgical History Orthopedic Surgery: Yes (Rt Hand) - Immunization History Immunization Up to Date: Yes - Suicide/Smoking/Psychosocial Hx Smoking History: Former smoker Have you smoked in the past 12 months: No Number of Cigarettes Smoked Daily: 10 If you are a former smoker, when did you quit?: 2010 Information on smoking cessation initiated: No Hx Alcohol Use: No Drug/Substance Use Hx: No Substance Use Type: None Hx Substance Use Treatment: No Trauma Specific PMHX - Complaint Specific PMHX Arthritis: Yes (right wrist surgery) *Physical Exam - Vital Signs Last Vital Signs Temp Pulse Resp BP Pulse Ox 98.1 F 89 18 131/87 98 06/15/17 11:09 06/15/17 11:09 06/15/17 11:09 06/15/17 11:09 06/15/17 11:09 Medical Decision Making - Medical Decision Making 06/15/17 14:30 Procedure note: Application of thumb spica At thumb spica splint was applied with fiberglass immobilizing the thumb on the left wrist and proximal forearm after splinting the patient was more comfortable. There was no distal numbness or tingling of the thumb. There was good capillary refill and good finger to motion. *DC/Admit/Observation/Transfer Diagnosis at time of Disposition: Tenosynovitis of right hand - Discharge Dispostion Disposition: HOME Condition at time of disposition: Improved Admit: No - Prescriptions Prescriptions: Hydroxyzine Pamoate [Vistaril -] 25 mg PO TID PRN #15 capsule PRN Reason: Pain Ketorolac Tromethamine [Toradol] 10 mg PO Q6H #20 tablet - Referrals - Patient Instructions Printed Discharge Instructions: DI for Tenosynovitis Additional Instructions: Rest, elevate, medication as directed. See orthopedist/hand surgeon if symptoms persist. - Post Discharge Activity
[2017-06-15] MEDS ORDERED: hydrOXYzine PAMOATE 25 MG CAPSULE (FP) PO ONE ×2 (12:41→12:55)
[2017-06-15] MEDS ORDERED: KETOROLAC TROMETHAMINE 60 MG/2 ML VIAL ONE (12:55)
== END 2017-06-15 13:57 | disposition home or self-care (01) ==
LOC: FER 11:08
PROC: 3E0233Z Introduction of Anti-inflammatory into Muscle, Percutaneous Approach (ICD-10-PCS; principal; 2017-06-15)
PROC: 2W3JX1Z Immobilization of Right Finger using Splint (ICD-10-PCS; 2017-06-15)
DX: M65.841 Other synovitis and tenosynovitis, right hand (principal); Z87.891 Personal history of nicotine dependence
CPT/HCPCS: 99282-25

== ENCOUNTER 2018-03-12 11:59 | Emergency (ER) | payer OTHER ==
[2018-03-12 12:13] VITALS: BP 126/53; PULSE 67; TEMP 98.3; BMI 19.5
[2018-03-12] MEDS ORDERED: ACETAMINOPHEN 325 MG TABLET (FP) PO ONE (12:23)
[2018-03-12] MEDS ORDERED: traMADol HCL 50 MG TABLET PO ONE (12:23)
[2018-03-12] MEDS ORDERED: ACETAMINOPHEN 325 MG TABLET (FP) ONE (12:38)
[2018-03-12] MEDS ORDERED: traMADol HCL 50 MG TABLET ONE (12:39)
[2018-03-12] MEDS ORDERED: REFRIGERATED ANITBIOTICS ONE (12:47)
--- NOTE | 2018-03-12 13:40 | PDOC ---
History of Present Illness - General Chief Complaint: Injury Stated Complaint: RIGHT HAND INJURY Time Seen by Provider: 03/12/18 12:05 - History of Present Illness Initial Comments: 03/12/18 13:35 52 years old past medical history significant for previous right hand tendon injury presents to the emergency department with injury to right wrist and right shoulder patient was picking up her granddaughter and felt a pop in her wrist and pain in her right shoulder. No direct trauma. 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 No other injury sustained. Past History - Past Medical History Allergies/Adverse Reactions: Allergies Allergy/AdvReac Type Severity Reaction Status Date / Time No Known Allergies Allergy Verified 03/12/18 12:03 Home Medications: Ambulatory Orders NK [No Known Home Medication] 03/12/18 Anemia: No Asthma: No Cancer: No Cardiac Disorders: No CVA: No COPD: No CHF: No Dementia: No Diabetes: No GI Disorders: No Disorders: No HTN: No Hypercholesterolemia: No Liver Disease: No Seizures: No Thyroid Disease: No - Surgical History Orthopedic Surgery: Yes (Rt Hand) - Immunization History Immunization Up to Date: Yes - Suicide/Smoking/Psychosocial Hx Smoking History: Former smoker Have you smoked in the past 12 months: No Number of Cigarettes Smoked Daily: 10 If you are a former smoker, when did you quit?: 10 YEARS AGO Information on smoking cessation initiated: Yes Hx Alcohol Use: No Drug/Substance Use Hx: No Substance Use Type: None Hx Substance Use Treatment: No Review of Systems - Review of Systems Comments:: 03/12/18 13:37 ROS: A complete review of 10 out of 10 review of systems is taken and is negative apart from what is previously mentioned below and in the HPI. *Physical Exam - Vital Signs Last Vital Signs Temp Pulse Resp BP Pulse Ox 98.3 F 67 16 126/53 L 100 03/12/18 12:01 03/12/18 12:01 03/12/18 12:01 03/12/18 12:01 03/12/18 12:01 - Physical Exam Comments: 03/12/18 13:37 Vitals: Triage Vital signs reviewed General Appearance: no acute distress, well nourished well developed, Neck: Supple;No Nucal rigidity Chest Wall: Nontender Cardiac: Regular rate and rhythym, no murmurs, no rubs, no gallops, Lungs: Clear to auscultation bilateral, good air movement bilaterally, Extremities: Full range of motion to all extremities, no cyanosis, clubbing, or edema, tenderness to palpation over the before meals joint as well as tenderness to palpation over the distal radius no scaphoid tenderness to palpation. Full range of motion. Skin: Warm and dry, no rashes or lesions, no rash, no petechiae Neuro: AOX3; Cranial Nerves 2-12 grossly intact, slightly decreased sock lining stitcher strength with, Sensation intact to all extremities,gait normal Psych: normal mood, normal affect ED Treatment Course - RADIOLOGY Radiology Studies Ordered: Category Date Time Status SHOULDER-RIGHT [RAD] Stat Radiology 03/12/18 12:30 Completed WRIST- RIGHT [RAD] Stat Radiology 03/12/18 12:30 Completed - Medications Given in the ED: ED Medications Discontinued Medications Generic Name Dose Route Start Last Admin Trade Name Freq PRN Reason Stop Dose Admin Acetaminophen 650 mg 03/12/18 12:23 03/12/18 12:40 Tylenol - PO 03/12/18 12:24 650 mg ONCE ONE Administration Tramadol HCl 50 mg 03/12/18 12:23 03/12/18 12:41 Ultram - PO 03/12/18 12:24 50 mg ONCE ONE Administration Medical Decision Making - Medical Decision Making 03/12/18 13:38 History examination consistent with likely wrist tendon sprain Pain medications given. X-rays negative for acute fracture dislocation. Patient placed in thumb spica splint provided with orthopedic follow-up Findings, the need for follow-up and strict return instructions discussed with patient. *DC/Admit/Observation/Transfer Diagnosis at time of Disposition: Musculoskeletal pain - Discharge Dispostion Disposition: HOME Condition at time of disposition: Stable Decision to Admit order: No - Referrals Referrals: Angus Rodriguez MD [Staff Physician] - - Patient Instructions Printed Discharge Instructions: Wrist Sprain Additional Instructions: Wear splint at all times. Follow-up with Dr. Hamm orthopedicruthy in 2 days. Ice affected area 20 minutes on 20 minutes off. Take one tablet twice a day. Take Tylenol as directed on package. Return to ED for any concerns. - Post Discharge Activity
== END 2018-03-12 13:55 | disposition home or self-care (01) ==
LOC: FER 11:59
PROC: 2W3GX1Z Immobilization of Right Thumb using Splint (ICD-10-PCS; principal; 2018-03-12)
DX: M79.1 Myalgia (principal); Z87.891 Personal history of nicotine dependence
CPT/HCPCS: 73030-TC-RT-FY; 73110-TC-RT-FY; 99281-25

== ENCOUNTER 2018-05-25 19:30 | Emergency (ER) | payer OTHER ==
[2018-05-25 19:34] VITALS: BP 138/101; PULSE 113; TEMP 98.4; BMI 19.5
--- NOTE | 2018-05-25 19:35 | PDOC ---
History of Present Illness - General History Source: Patient Exam Limitations: No Limitations - History of Present Illness Initial Comments: 05/25/18 19:53 The patient is a 52 year old female, with no significant past medical history, who presents to the emergency department with left hand pain after punching a wall during a verbal altercation about 40 minutes prior to arrival. She reports pain over the 5th metacarpal both dorsally and to the palmar aspect of the left hand. She denies numbness or tingling. She reportedly took Motrin prior to ED arrival with no relief. She states she is able to rotate her left wrist without reproducing pain. The patient denies chest pain, shortness of breath, headache and dizziness. The patient denies fever, chills, nausea, vomit, diarrhea and constipation. The patient denies dysuria, frequency, urgency and hematuria. Allergies: NKDA Past surgical history: none reported <Liz Matta - Last Filed: 05/25/18 19:53> <Mariela Delgado - Last Filed: 05/26/18 00:27> - General Chief Complaint: Injury Stated Complaint: LEFT HAND INJURY Time Seen by Provider: 05/25/18 19:33 Past History <Liz Matta - Last Filed: 05/25/18 19:53> - Past Medical History Anemia: No Asthma: No Cancer: No Cardiac Disorders: No CVA: No COPD: No CHF: No Dementia: No Diabetes: No GI Disorders: No Disorders: No HTN: No Hypercholesterolemia: No Liver Disease: No Seizures: No Thyroid Disease: No - Surgical History Orthopedic Surgery: Yes (Rt Hand) - Immunization History Immunization Up to Date: Yes - Suicide/Smoking/Psychosocial Hx Smoking History: Never smoked Have you smoked in the past 12 months: No Number of Cigarettes Smoked Daily: 10 If you are a former smoker, when did you quit?: 10 YEARS AGO Information on smoking cessation initiated: No Hx Alcohol Use: No Drug/Substance Use Hx: No Substance Use Type: None Hx Substance Use Treatment: No <Mariela Delgado - Last Filed: 05/26/18 00:27> - Past Medical History Allergies/Adverse Reactions: Allergies Allergy/AdvReac Type Severity Reaction Status Date / Time No Known Allergies Allergy Verified 03/12/18 12:03 Home Medications: Ambulatory Orders Oxycodone HCl/Acetaminophen [Percocet 5-325 mg Tablet] 1 tab PO Q6H PRN #10 tablet MDD 4 tabs 05/25/18 Trauma Specific PMHX - Complaint Specific PMHX Arthritis: Yes (right wrist surgery) <Mariela Delgado - Last Filed: 05/26/18 00:27> Review of Systems - Review of Systems Able to Perform ROS?: Yes Comments:: 05/25/18 19:54 CONSTITUTIONAL: Absent: fever, no chills, no fatigue EYES: Absent: visual changes ENT: Absent: ear pain, no sore throat CARDIOVASCULAR: Absent: chest pain, no palpitations RESPIRATORY: Absent: cough, no SOB GI: Absent: abdominal pain, no nausea, no vomiting, no constipation, no diarrhea GENITOURINARY: Absent: dysuria, no frequency, no hematuria MUSKULOSKELETAL: (+) Left hand pain. Absent: back pain, no myalgia SKIN: Absent: rash NEURO: Absent: headache <Liz Matta - Last Filed: 05/25/18 19:53> *Physical Exam - Vital Signs Last Vital Signs Temp Pulse Resp BP Pulse Ox 98.4 F 113 H 20 138/101 H 96 05/25/18 19:30 05/25/18 19:30 05/25/18 19:30 05/25/18 19:30 05/25/18 19:30 - Physical Exam Comments: 05/25/18 19:54 GENERAL: The patient is awake, alert, and fully oriented, in no acute distress. HEAD:[Normal with no signs of trauma. EYES: Pupils equal, round and reactive to light, extraocular movements intact, sclera anicteric, conjunctiva clear. EXTREMITIES: (+) Left hand has tenderness on palpation over the 5th metacarpal. Generalized mild edema to the left hand. No ecchymosis. No bony abnormalities. Pt able to range all digits of the left hand. Normal range of motion. NEUROLOGICAL: Normal speech, normal gait. PSYCH: Normal mood, normal affect. SKIN: Warm, Dry, normal turgor, no rashes or lesions noted. <Liz Matta - Last Filed: 05/25/18 19:53> - Vital Signs Last Vital Signs Temp Pulse Resp BP Pulse Ox 98.4 F 113 H 20 138/101 H 96 05/25/18 19:30 05/25/18 19:30 05/25/18 19:30 05/25/18 19:30 05/25/18 19:30 <Mariela Delgado - Last Filed: 05/26/18 00:27> Moderate Sedation - Procedure Monitoring Vital Signs: Procedure Monitoring Vital Signs Temperature 98.4 F 05/25/18 19:30 Pulse Rate 113 H 05/25/18 19:30 Respiratory Rate 20 05/25/18 19:30 Blood Pressure 138/101 H 05/25/18 19:30 O2 Sat by Pulse Oximetry (%) 96 05/25/18 19:30 <Liz Matta - Last Filed: 05/25/18 19:53> - Procedure Monitoring Vital Signs: Procedure Monitoring Vital Signs Temperature 98.4 F 05/25/18 19:30 Pulse Rate 113 H 05/25/18 19:30 Respiratory Rate 20 05/25/18 19:30 Blood Pressure 138/101 H 05/25/18 19:30 O2 Sat by Pulse Oximetry (%) 96 05/25/18 19:30 <Mariela Delgado - Last Filed: 05/26/18 00:27> Progress Note - Progress Note Progress Note: Documentation has been prepared under my direction and personally reviewed by me in its entirety. I attest that this documented accurately reflects all work, treatment, procedures and medical decision making performed by me. <Mariela Delgado - Last Filed: 05/26/18 00:27> Medical Decision Making - Medical Decision Making As noted above, this otherwise healthy 52-year-old woman presents with left hand edema and pain after she struck a wall with her fist. No other injury sustained. No previous history of left upper extremity injury. Exam as noted. Left hand/forearm x-rays performed. Preliminary interpretation by me: Minimally displaced fracture of the neck of the fifth metacarpal bone. No other fracture or dislocation seen. Using Ortho-Glass material, boxer fracture splint fashioned and secured using Dale wraps. No vascular functioning intact after placement of the splint. Patient will be given a sling; she should ice and elevate the area of the fracture as much as possible over the next 48 hours. Patient has been seen by Dr. Rodriguez in the past and referral information will be given to her. She should call the office on May 27 2 arrange follow-up within the next 24- 48 hours. If she has any worsening of pain or swelling prior to that, she should return to the emergency room. Small (#10) prescription for Percocet 5/325 will be transmitted to her pharmacy ; she can take up to 4 tabs a day, one tablet every 6 hours as needed for severe pain. For [id number] pain, ibuprofen/naproxen/acetaminophen can be used. <Mariela Delgado - Last Filed: 05/26/18 00:27> *DC/Admit/Observation/Transfer - Attestations Scribe Attestion: 05/25/18 19:54 Documentation prepared by Liz Matta, acting as medical office receptionist assistant for Mariela Delgado MD <Liz Matta - Last Filed: 05/25/18 19:53> <Mariela Delgado - Last Filed: 05/26/18 00:27> Diagnosis at time of Disposition: Closed fracture of 5th metacarpal Qualifiers: Encounter type: initial encounter Metacarpal location: neck Fracture alignment : nondisplaced Laterality: left Qualified Code(s): S62.367A - Nondisplaced fracture of neck of fifth metacarpal bone, left hand, initial encounter for closed fracture - Discharge Dispostion Disposition: HOME Condition at time of disposition: Stable - Prescriptions Prescriptions: Oxycodone HCl/Acetaminophen [Percocet 5-325 mg Tablet] 1 tab PO Q6H PRN #10 tablet MDD 4 tabs PRN Reason: Severe Pain - Referrals Referrals: Angus Rodriguez MD [Staff Physician] - - Patient Instructions Printed Discharge Instructions: Boxer's Fracture Additional Instructions: Ice/elevation of left hand as much as possible for the next 48 hours Wear sling when up and around Percocet 5/325 up to 4 times a day as needed for severe pain Can alternate with ibuprofen/naproxen/acetaminophen as needed for mild-to- moderate pain Call group on Sunday morning to arrange for follow-up as soon as possible Return to ER if you have severe pain/swelling of the hand
== END 2018-05-25 20:40 | disposition home or self-care (01) ==
LOC: FER 19:30
PROC: 2W3DX1Z Immobilization of Left Lower Arm using Splint (ICD-10-PCS; principal; 2018-05-25)
DX: S62.367A Nondisplaced fracture of neck of fifth metacarpal bone, left hand, initial encounter for closed fracture (principal); W22.01XA Walked into wall, initial encounter; Y93.89 Activity, other specified; Y92.89 Other specified places as the place of occurrence of the external cause
CPT/HCPCS: 73090-TC-LT-FY; 73130-TC-LT-FY; 99284-25

== ENCOUNTER 2018-08-12 10:03 | Inpatient (IN) | payer OTHER ==
--- NOTE | 2018-08-12 10:18 | PDOC ---
History of Present Illness - General Stated Complaint: CVA/TIA - History of Present Illness Initial Comments: Donato Haddad is a 53yo woman with a PMH of lupus who presents with right- sided facial weakness and "numbness" since she woke up this morning. She reports that she noticed that her face felt "funny" as soon as she woke up, but she initially thought it was from sleeping on that side of her body last night. She then noticed that the right side of her face was drooping. She decided to wait at home to see if it would improve. However, it did not improve and her convinced her to come to the hospital. She reports that she was completely well yesterday when she went to bed around 1am. In addition to the facial weakness, her noted that she was walking "funny" but neither noted any particular weakness. She denies any other recent symptoms including chest pain, SOB, fever/chills, syncope, recent illness, sick contacts, or prior neurological events. Her notes that she has been under a lot of stress and has been "yelling and screaming' a lot lately, but he also agrees that there have been no additional recent symptoms. NIH Stroke Scale - Last Known Well Date/Time & Onset Date Last Known Well: 08/12/18 Time Last Known Well: 01:00 - Initial Evaluation Level of consciousness: Alert Ask patient the month and their age: Answers both correctly Ask patient to open & close eyes; make fist and let go: Obeys both correctly Best gaze (horizontal eye movement): Normal Visual field testing: No visual field loss Facial paresis (Show teeth/raise eyebrows/close eyes tight): Minor paralysis ( flattened nasolabial fold, asymmetry on smiling) Motor Function: Left Arm: Normal Motor Function: Right Arm: Normal (extends arm 90 (or 45) degrees for 10 seconds without drift Motor Function: Left Leg: No effort against gravity Motor Function: Right Leg: Some effort against gravity Limb Ataxia: No ataxia Sensory(Use pinprick test arms,legs,trunk,face/side to side): Mild to moderate decrease in sensation Best language (Describe picture, name items, read sentences): No Aphasia Dysarthria (read several words): Normal articulation Extinction and Inattention: No abnormality - Total Score NIH Stroke Scale Score: 7 Past History - Past Medical History Allergies/Adverse Reactions: Allergies Allergy/AdvReac Type Severity Reaction Status Date / Time No Known Allergies Allergy Verified 08/12/18 10:23 Home Medications: Ambulatory Orders Gabapentin 300 mg PO BID 08/12/18 Anemia: No Asthma: No Cancer: No Cardiac Disorders: No CVA: No COPD: No CHF: No Dementia: No Diabetes: No GI Disorders: No Disorders: No HTN: No Hypercholesterolemia: No Liver Disease: No Seizures: No Thyroid Disease: No - Surgical History Orthopedic Surgery: Yes (Rt Hand) - Immunization History Immunization Up to Date: Yes - Suicide/Smoking/Psychosocial Hx Smoking History: Never smoked Have you smoked in the past 12 months: No Number of Cigarettes Smoked Daily: 10 If you are a former smoker, when did you quit?: 10 YEARS AGO Hx Alcohol Use: No Drug/Substance Use Hx: No Substance Use Type: None Hx Substance Use Treatment: No Review of Systems - Review of Systems Comments:: General: No fevers, no chills, no weight or appetite change, no malaise HEENT: No changes in vision, no changes in hearing, no congestion, no sore throat CV: No chest pain, no palpitations, no LE edema Pulm: No SOB, no cough, no wheezing GI: No nausea or vomiting, no change in bowel habits, no melena : No frequency, no urgency, no dysuria Musc: No back pain, no joint swelling, no recent injury Skin: No rash, no lesions, no erythema Endo: No excessive thirst, no heat/cold intolerance Heme: No unusual bruising or bleeding, no swollen glands Neuro: See HPI Vasc: No claudication Psych: No recent change in mood, no SI or HI *Physical Exam - Physical Exam Comments: General: Comfortable, no acute distress HEENT: PERRL, EOMI, MMM, voice normal, normal neck ROM, no LAD Cards: RRR, no murmur appreciated Pulm: Comfortable on room air, clear to auscultation bilaterally Abd: Soft, nontender, nondistended Ext: Atraumatic. No LE edema. Vasc: Extremities WWP. Palpable radial pulses bilaterally Skin: Normal color, no rashes or lesions Neuro: A&Ox3, weakness of lower right face, normal movement of eyebrow and forehead. No arm drift, 4/5 L hand strength and 5/5 R hand strength. Unable to hold L leg off bed against gravity. Strength at ankles 5/5 on right, 3/5 on left. Sensory abnormality to light touch on R face. Speech normal. Psych: Mood appropriate to situation ED Treatment Course - LABORATORY CBC & Chemistry Diagram: 08/12/18 12:32 08/12/18 10:37 Medical Decision Making - Medical Decision Making 08/12/18 10:42 Donato Haddad is a 53yo woman with a PMH of lupus who presents with right- sided facial weakness and sensory changes as well as left leg weakness that she noted when she woke up this morning. She was last known well when she went to bed at 1am. - Symptoms consistent with an acute stroke. Not a TPA candidate as last well was 9hrs ago - CVA/TIA labs ordered - Pt to CT head - Call placed to neurology for additional recommendations. If a thrombectomy candidate, may need a CTA 08/12/18 12:49 - Labs sent, pending - Neurology recommended CT head, CTA brain, MRI brain - completed. Reviewed; no abnormalities noted on CT or CTA. MRI read pending 08/12/18 13:27 - MRI completed - appears to be normal MRI, per radiology read - CBC and coags completed, unremarkable. - Plan to admit for additional workup and management Discussed with Dr Arnold. Magdalena Tran PGY1 *DC/Admit/Observation/Transfer Diagnosis at time of Disposition: Weakness of left side of body, Weakness on right side of face - Discharge Dispostion Decision to Admit order: Yes - Referrals - Patient Instructions - Post Discharge Activity
--- NOTE | 2018-08-12 10:34 | PDOC ---
Attending Attestation - HPI HPI: 08/12/18 11:18 The patient is a 53 year old female with a past medical history of lupus here today for evaluation of right sided facial weakness. The patient reports that she woke up this morning with right sided facial weakness and left leg weakness. 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 + 4+/5 left lower extremity weakness. AOX3; Cranial Nerves 2-12 grossly intact, Sensation intact to all extremities Psych: Normal mood, normal affect - Medical Decision Making 08/12/18 11:19 Documentation prepared by JORGE Mays, acting as medical or surgical instrument maker for Shine Arnold MD. The patient is a 53 year old female with a past medical history of lupus here today for evaluation of right sided facial weakness. <Meño Cox - Last Filed: 08/12/18 13:12> - Resident Resident Name: Magdalena Tran - ED Attending Attestation I have performed the following: I have examined & evaluated the patient, The case was reviewed & discussed with the resident, I agree w/resident's findings & plan, Exceptions are as noted - Critical Care Time Total Critical Care Time: 36 Critical Care Statement: The care of this patient involved high complexity decision making to prevent further life threatening deterioration of the patient 's condition and/or to evaluate & treat vital organ system(s) failure or risk of failure. 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 Patient was not a TPA candidate Neurology was consult did patient was sent to CAT scan for CT CTA then MRA brain Her imaging was unremarkable for stroke mass or acute occlusion Upon her return from imaging my repeat evaluation demonstrated a NIHSS stroke scale score of 0 We will observe overnight for neurology consultation and further management. <Shine Arnold - Last Filed: 08/12/18 15:42> Heart Score/ECG Review - ECG Impressions Comment:: 08/12/18 15:37 EKG performed at 10:15 AM demonstrates normal sinus rhythm no ST elevations or T -wave inversions. Interpreted by me. <Shine Arnold - Last Filed: 08/12/18 15:42> NIH Stroke Scale - Last Known Well Date/Time & Onset Date Last Known Well: 08/12/18 Time Last Known Well: 01:00 - Initial Evaluation Level of consciousness: Alert Ask patient the month and their age: Answers both correctly Ask patient to open & close eyes; make fist and let go: Obeys both correctly Best gaze (horizontal eye movement): Normal Visual field testing: No visual field loss Facial paresis (Show teeth/raise eyebrows/close eyes tight): Normal symmetrical movement Motor Function: Left Arm: Normal Motor Function: Right Arm: Normal (extends arm 90 (or 45) degrees for 10 seconds without drift Motor Function: Left Leg: Normal (extends leg 30 degrees for 5 seconds without drift) Motor Function: Right Leg: Normal (extends leg 30 degrees for 5 seconds without drift) Limb Ataxia: No ataxia Sensory(Use pinprick test arms,legs,trunk,face/side to side): Normal Best language (Describe picture, name items, read sentences): No Aphasia Dysarthria (read several words): Normal articulation Extinction and Inattention: No abnormality - Total Score NIH Stroke Scale Score: 0 <Shine Arnold - Last Filed: 08/12/18 15:42>
[2018-08-12] MEDS ORDERED: SODIUM CHLORIDE 1,000 ML IV SCH (10:45)
[2018-08-12 12:54] LABS: BASO % 1.1 % (0-2.0); EOS % 6.4 % (0-4.5); HEMOGLOBIN 12.1 GM/dL (10.7-15.3); LYMPH % 26.5 % (8-40); MCH 30.6 pg (25.7-33.7); MCHC 33.7 g/dl (32.0-36.0); MEAN CELL VOLUME 90.8 fl (80-96); MEAN PLT VOLUME 10.7 fl (7.5-11.1); MONO % 6.2 % (3.8-10.2); NEUT % 59.8 % (42.8-82.8); PLATELET COUNT 186 K/MM3 (134-434); RBC 3.97 M/mm3 (3.60-5.2); RDW 13.6 % (11.6-15.6); WHITE BLOOD COUNT 6.5 K/mm3 (4.0-10.0)
[2018-08-12 13:04] LABS: URINE APPEARANCE CLEAR; URINE BILIRUBIN NEGATIVE (<2.0 mg/dL); URINE COLOR LTYELLOW; URINE GLUCOSE (UA) NEGATIVE (NEGATIVE); URINE KETONE NEGATIVE (NEGATIVE); URINE LEUK ESTERASE TRACE (NEGATIVE); URINE NITRITE NEGATIVE (NEGATIVE); URINE PROTEIN NEGATIVE (NEGATIVE); URINE UROBILINOGEN NEGATIVE mg/dL (0.2-1.0)
[2018-08-12 13:27] LABS: INR 1.04 (0.83-1.09); PROTHROMBIN TIME (PATIENT) 12.3 SEC (9.7-13.0)
[2018-08-12 13:27] LABS: ALBUMIN 3.5 g/dl (3.4-5.0); ALK PHOS 61 U/L (45-117); ANION GAP 3 MMOL/L (8-16); BILIRUBIN,TOTAL 0.5 mg/dL (0.2-1); BLOOD UREA NITROGEN 19 mg/dL (7-18); CALCIUM 8.3 mg/dL (8.5-10.1); CHLORIDE 107 mmol/L (98-107); CHOLESTEROL 142 mg/dL (50-200); CO2 28 mmol/L (21-32); GLUCOSE,RANDOM 84 mg/dL (74-106); HDL CHOLESTEROL 49 mg/dL (40-60); POTASSIUM 4.1 mmol/L (3.5-5.1); SGOT/AST 17 U/L (15-37); SGPT/ALT 17 U/L (13-61); SODIUM 138 mmol/L (136-145); TOT PROT 6.4 g/dl (6.4-8.2); TRIGLYCERIDES 82 mg/dL (0-150)
[2018-08-12 14:39] LABS: EPI CELLS RARE /HPF (FEW)
[2018-08-12] MEDS ORDERED: ACETAMINOPHEN 325 MG TABLET (FP) PO ONE (16:12)
--- NOTE | 2018-08-12 17:05 | HP ---
Admitting History and Physical - Primary Care Physician PCP: Rosalinda Rodriguez - Admission History of Present Illness: 53 year old female with a past medical history of lupus here today for evaluation of right sided facial weakness. The patient reports that she woke up this morning with right sided facial weakness and left leg weakness. - Past Medical History Rheumatology: Yes: Lupus - Past Surgical History Past Surgical History: Yes: None - Smoking History Smoking history: Never smoked Have you smoked in the past 12 months: No Aproximately how many cigarettes per day: 10 If you are a former smoker, when did you quit?: 10 YEARS AGO - Alcohol/Substance Use Hx Alcohol Use: No History of Substance Use: reports: None Home Medications - Allergies Allergies/Adverse Reactions: Allergies Allergy/AdvReac Type Severity Reaction Status Date / Time No Known Allergies Allergy Verified 08/12/18 10:23 - Home Medications Home Medications: Ambulatory Orders Gabapentin 300 mg PO BID 08/12/18 Aspirin [ASA -] 81 mg PO DAILY #30 tab.chew 08/13/18 Review of Systems - Review of Systems Neurological: reports: Weakness (left leg, r sisded facial droop) Physical Examination Vital Signs: Vital Signs Temperature 99.2 F 08/12/18 10:03 Pulse Rate 75 08/12/18 12:53 Respiratory Rate 18 08/12/18 12:53 Blood Pressure 108/52 L 08/12/18 12:53 O2 Sat by Pulse Oximetry (%) 100 08/12/18 12:53 Constitutional: Yes: Calm HENT: Yes: Other (R side of face naso labial fold is flat) Cardiovascular: Yes: Regular Rate and Rhythm Respiratory: Yes: CTA Bilaterally Gastrointestinal: Yes: Normal Bowel Sounds Extremities: Yes: WNL Edema: No Peripheral Pulses WNL: Yes Neurological: Yes: Alert, Oriented ...Motor Strength: WNL Labs: CBC, BMP 08/12/18 12:32 08/12/18 10:37 Imaging - Results Cat Scan: Report Reviewed MRI: Report Reviewed Problem List - Problems (1) Weakness of left side of body Assessment/Plan: feeling much better have been walking Code(s): R53.1 - WEAKNESS (2) Weakness on right side of face Assessment/Plan: improves Code(s): R29.810 - FACIAL WEAKNESS (3) TIA (transient ischemic attack) Assessment/Plan: possible tia mri/ctscans wnl neuro on board Code(s): G45.9 - TRANSIENT CEREBRAL ISCHEMIC ATTACK, UNSPECIFIED Assessment/Plan Laboratory Tests 08/12/18 08/12/18 08/12/18 10:37 12:32 12:32 WBC 6.5 RBC 3.97 Hgb 12.1 Hct 36.0 MCV 90.8 MCH 30.6 MCHC 33.7 RDW 13.6 Plt Count 186 MPV 10.7 Absolute Neuts (auto) 3.9 Neutrophils % 59.8 Lymphocytes % 26.5 Monocytes % 6.2 Eosinophils % 6.4 H Basophils % 1.1 Nucleated RBC % 0 PT with INR 12.30 INR 1.04 PTT (Actin FS) Sodium 138 Potassium 4.1 Chloride 107 Carbon Dioxide 28 Anion Gap 3 L BUN 19 H Creatinine 1.0 Creat Clearance w eGFR 57.78 Random Glucose 84 Calcium 8.3 L Total Bilirubin 0.5 AST 17 ALT 17 Alkaline Phosphatase 61 Creatine Kinase 186 Creatine Kinase Index 0.8 CK-MB (CK-2) 1.5 Troponin I < 0.02 Total Protein 6.4 Albumin 3.5 Triglycerides 82 Cholesterol 142 Total LDL Cholesterol 79 HDL Cholesterol 49 Urine Color Urine Appearance Urine pH Ur Specific Fidelity Urine Protein Urine Glucose (UA) Urine Ketones Urine Blood Urine Nitrite Urine Bilirubin Urine Urobilinogen Ur Leukocyte Esterase Urine WBC (Auto) Urine RBC (Auto) Ur Epithelial Cells Blood Type Antibody Screen 08/12/18 08/12/18 08/12/18 12:32 12:32 12:55 WBC RBC Hgb Hct MCV MCH MCHC RDW Plt Count MPV Absolute Neuts (auto) Neutrophils % Lymphocytes % Monocytes % Eosinophils % Basophils % Nucleated RBC % PT with INR INR PTT (Actin FS) 32.5 Sodium Potassium Chloride Carbon Dioxide Anion Gap BUN Creatinine Creat Clearance w eGFR Random Glucose Calcium Total Bilirubin AST ALT Alkaline Phosphatase Creatine Kinase Creatine Kinase Index CK-MB (CK-2) Troponin I Total Protein Albumin Triglycerides Cholesterol Total LDL Cholesterol HDL Cholesterol Urine Color Ltyellow Urine Appearance Clear Urine pH 5.0 Ur Specific Fidelity > 1.060 H Urine Protein Negative Urine Glucose (UA) Negative Urine Ketones Negative Urine Blood 2+ H Urine Nitrite Negative Urine Bilirubin Negative Urine Urobilinogen Negative Ur Leukocyte Esterase Trace Urine WBC (Auto) <1 Urine RBC (Auto) 5 Ur Epithelial Cells Rare Blood Type O POSITIVE Antibody Screen Negative Active Medications Generic Name Dose Route Start Last Admin Trade Name Freq PRN Reason Stop Dose Admin Sodium Chloride 1,000 mls @ 42 mls/hr 08/12/18 10:45 08/12/18 11:11 Normal Saline - IV 42 mls/hr ASDIR TONY Administration Active Medications Generic Name Dose Route Start Last Admin Trade Name Freq PRN Reason Stop Dose Admin Acetaminophen 650 mg 08/12/18 17:10 Tylenol - PO Q6H PRN FEVER Heparin Sodium (Porcine) 5,000 unit 08/12/18 22:00 Heparin - SQ BID TONY Sodium Chloride 1,000 mls @ 42 mls/hr 08/12/18 10:45 08/12/18 11:11 Normal Saline - IV 42 mls/hr ASDIR TONY Administration
[2018-08-12] MEDS ORDERED: ACETAMINOPHEN 325 MG TABLET (FP) PO PRN (17:10)
--- NOTE | 2018-08-12 20:28 | EKG ---
Test Reason : Blood Pressure : / mmHG Vent. Rate : 066 BPM Atrial Rate : 066 BPM P-R Int : 140 ms QRS Dur : 064 ms QT Int : 374 ms P-R-T Axes : 072 080 061 degrees QTc Int : 392 ms NORMAL SINUS RHYTHM NORMAL ECG WHEN COMPARED WITH ECG OF 01-DEC-2016 11:56, PREMATURE VENTRICULAR COMPLEXES ARE NO LONGER PRESENT Confirmed by LUIS TEJADA MD ([id number]) on 08/12/2018 8:28:07 PM Referred By: Confirmed By:LUIS TEJADA MD
--- NOTE | 2018-08-12 21:46 | CON.NEURO ---
Consult Consult Specialty:: NEUROLOGY-JAQUAN ROSARIO - History of Present Illness History of Present Illness: Donato Haddad is a 53yo woman with a PMH of lupus who presents with right- sided facial weakness and "numbness" since she woke up this morning. She reports that she noticed that her face felt "funny" as soon as she woke up, but she initially thought it was from sleeping on that side of her body last night. She then noticed that the right side of her face was drooping. She decided to wait at home to see if it would improve. However, it did not improve and her convinced her to come to the hospital. Speech difficulty/left sided weakness she says lasted several hours today and resolved, right sided V2/3 numbness remains. States feels better. She reports that she was completely well yesterday when she went to bed around 1am. In addition to the facial weakness, her noted that she was walking "funny" but neither noted any particular weakness. She denies any other recent symptoms including chest pain, SOB, fever/chills, syncope, recent illness, sick contacts, or prior neurological events. Her notes that she has been under a lot of stress and has been "yelling and screaming' a lot lately, but he also agrees that there have been no additional recent symptoms. CT head, MRI brain, CTA brain-all reported without abn. - Past Medical History Rheumatology: Yes: Lupus - Past Surgical History Past Surgical History: Yes: None - Alcohol/Substance Use Hx Alcohol Use: No History of Substance Use: reports: None - Smoking History Smoking history: Never smoked Have you smoked in the past 12 months: No Aproximately how many cigarettes per day: 10 If you are a former smoker, when did you quit?: 10 YEARS AGO Home Medications - Allergies Allergies/Adverse Reactions: Allergies Allergy/AdvReac Type Severity Reaction Status Date / Time No Known Allergies Allergy Verified 08/12/18 10:23 - Home Medications Home Medications: Ambulatory Orders Gabapentin 300 mg PO BID 08/12/18 Physical Exam-Neuro Vital Signs: Vital Signs Temperature 98.4 F 08/12/18 18:00 Pulse Rate 72 08/12/18 18:00 Respiratory Rate 18 08/12/18 18:00 Blood Pressure 110/78 08/12/18 18:00 O2 Sat by Pulse Oximetry (%) 99 08/12/18 18:00 Labs: CBC, BMP 08/12/18 12:32 08/12/18 10:37 INR, PTT INR 1.04 (0.83-1.09) 08/12/18 12:32 - Neuro Exam Speech: WNL (No aphasia/dysarthria) Cranial Nerves II-XII Intact: No (Diminished right V2/V3 region touch/pin sensation) DTR's: 2+ Left Bicep, 2+ Right Bicep, 2+ Left Tricep, 2+ Right Tricep, 2+ Left Brachioradialis, 2+ Right Brachioradialis, 2+ Left Achilles, 2+ Right Achilles Motor Strength: 5/5: Left Arm, Right Arm, Left Leg, Right Leg Gait: Normal Assessment/Plan Pt. with hx of SLE by her report in remission, her symptoms/exam point to a post.fossa likely PICA territory TIA. Imaging to date without evid of infarct/ large vessel occlusion. Suggest: ASA 81mg daily, carotid doppler study, echocardiogram and rheumatologic parameters-HESHAM, RF, ESR, antiDS DNA. If she is stable may be discharged tomorrow, please ask her to f/u in my office [phone]. Thank you, Stephany Gonsales MD.
[2018-08-12 21:55] VITALS: BMI 20.3
[2018-08-12] MEDS: HEPARIN NA (PORCINE) 5,000 UNITS/ML 1ML VIAL SQ SCH (22:15)
[2018-08-13 04:21] VITALS: TEMP 97.8
[2018-08-13 07:03] VITALS: BP 129/70; PULSE 58
[2018-08-13 07:57] LABS: BASO % 1.9 % (0-2.0); HEMATOCRIT 34.4 % (32.4-45.2); HEMOGLOBIN 11.7 GM/dL (10.7-15.3); LYMPH % 41.2 % (8-40); MCH 30.6 pg (25.7-33.7); MCHC 33.9 g/dl (32.0-36.0); MEAN CELL VOLUME 90.5 fl (80-96); MEAN PLT VOLUME 11.2 fl (7.5-11.1); MONO % 7.9 % (3.8-10.2); PLATELET COUNT 179 K/MM3 (134-434); RBC 3.81 M/mm3 (3.60-5.2); RDW 13.6 % (11.6-15.6); WHITE BLOOD COUNT 6.2 K/mm3 (4.0-10.0)
[2018-08-13 09:01] LABS: ALBUMIN 3.1 g/dl (3.4-5.0); ALK PHOS 56 U/L (45-117); ANION GAP 5 MMOL/L (8-16); BILIRUBIN,TOTAL 0.4 mg/dL (0.2-1); BLOOD UREA NITROGEN 19 mg/dL (7-18); CALCIUM 8.5 mg/dL (8.5-10.1); CHLORIDE 110 mmol/L (98-107); CO2 26 mmol/L (21-32); CREATININE 0.9 mg/dL (0.55-1.3); GLUCOSE,RANDOM 85 mg/dL (74-106); POTASSIUM 4.4 mmol/L (3.5-5.1); SGOT/AST 11 U/L (15-37); SGPT/ALT 16 U/L (13-61); SODIUM 141 mmol/L (136-145); TOT PROT 5.8 g/dl (6.4-8.2)
[2018-08-13] MEDS ORDERED: ASPIRIN 81 MG CHEWABLE TABLETS PO SCH (10:00)
[2018-08-13] MEDS: HEPARIN NA (PORCINE) 5,000 UNITS/ML 1ML VIAL SQ SCH (10:04)
--- NOTE | 2018-08-13 11:49 | DS ---
Physical Examination Vital Signs: Vital Signs Temperature 97.8 F 08/13/18 02:00 Pulse Rate 58 L 08/13/18 06:00 Respiratory Rate 18 08/13/18 08:24 Blood Pressure 129/70 08/13/18 06:00 O2 Sat by Pulse Oximetry (%) 99 08/13/18 08:24 Constitutional: Yes: No Distress HENT: Yes: Atraumatic Neck: Yes: Supple Cardiovascular: Yes: Regular Rate and Rhythm Respiratory: Yes: CTA Bilaterally Gastrointestinal: Yes: Normal Bowel Sounds Extremities: Yes: WNL Edema: No Neurological: Yes: Alert, Oriented Labs: CBC, BMP 08/13/18 05:30 08/13/18 05:30 Discharge Summary Reason For Visit: WEAKNESS OF RT SIDE OF FACE AND BODY Current Active Problems TIA (transient ischemic attack) (Acute) Weakness of left side of body (Acute) Weakness on right side of face (Acute) - Instructions Diet, Activity, Other Instructions: see dr gonsales for further studies Referrals: Nasra Puckett [Primary Care Provider] - Charles Gonsales MD [Staff Physician] - Disposition: HOME - Home Medications Comprehensive Discharge Medication List: Ambulatory Orders Gabapentin 300 mg PO BID 08/12/18 Aspirin [ASA -] 81 mg PO DAILY #30 tab.chew 08/13/18 dc home fu with neuro as out patient will order carotid us
== END 2018-08-13 12:57 | disposition home or self-care (01) | DRG 69 ==
LOC: JER 10:03 → INTOOBSV 14:26 → JERBED 14:26 → J4W 20:04 → OBSVTOIN 08-13 10:35
PROVIDERS: ADMIT Internal Medicine; ATTEND Internal Medicine
DX: G45.9 Transient cerebral ischemic attack, unspecified (principal); M32.9 Systemic lupus erythematosus, unspecified; I69.992 Facial weakness following unspecified cerebrovascular disease
CPT/HCPCS: 36415; 70450-TC; 70496-TC; 70551-TC; 80053; 81003; 81015; 82465; 82550; 82553; 83718; 83721; 84478; 84484; 85025; 85610; 85730; 86850; 86900; 86901; 93005; 93010; 93880-TC; 99285-25; G0378; J1644; J7030

== ENCOUNTER 2018-10-11 09:55 | Observation (INO) | payer OTHER ==
[2018-10-11 10:12] VITALS: BMI 18.2
--- NOTE | 2018-10-11 10:46 | PDOC ---
History of Present Illness - General Chief Complaint: CVA/TIA Stated Complaint: NUMBNESS TO THE FACE Time Seen by Provider: 10/11/18 10:31 History Source: Patient Exam Limitations: No Limitations - History of Present Illness Initial Comments: 53 yo F presents with dec sensation to the L face, arm, and leg upon waking up at 9am this morning. She states that she feels like her face is asleep. It waxes and wanes. She had a prior TIA within the last year, came to this hospital. Denies changes in strength. As per at bedside, her last known normal was at 3:30am. She states she has been under high emotional stress. Her son was murdered a few years ago, and last night she saw a story about a murder on TV that triggered her. Denies DAN, LOC, cp, SOB. Past History - Past Medical History Allergies/Adverse Reactions: Allergies Allergy/AdvReac Type Severity Reaction Status Date / Time No Known Allergies Allergy Verified 10/11/18 10:50 Home Medications: Ambulatory Orders Gabapentin 300 mg PO BID 08/12/18 Aspirin [ASA -] 81 mg PO DAILY #30 tab.chew 08/13/18 Anemia: No Asthma: No Cancer: No Cardiac Disorders: No CVA: No COPD: No CHF: No Dementia: No Diabetes: No GI Disorders: No Disorders: No HTN: No Hypercholesterolemia: No Liver Disease: No Seizures: No Thyroid Disease: No - Surgical History Orthopedic Surgery: Yes (Rt Hand) - Immunization History Immunization Up to Date: Yes - Suicide/Smoking/Psychosocial Hx Smoking History: Former smoker Have you smoked in the past 12 months: No Number of Cigarettes Smoked Daily: 10 If you are a former smoker, when did you quit?: 10 YEARS AGO Information on smoking cessation initiated: No Hx Alcohol Use: No Drug/Substance Use Hx: No Substance Use Type: None Hx Substance Use Treatment: No Neuro Specific PMHX - Complaint Specific PMHX Glaucoma: No Review of Systems - Review of Systems Able to Perform ROS?: Yes Comments:: GENERAL/CONSTITUTIONAL: No fever or chills. No weakness. HEAD, EYES, EARS, NOSE AND THROAT: No change in vision. No ear pain or discharge. No sore throat. CARDIOVASCULAR: No chest pain or shortness of breath. RESPIRATORY: No cough, wheezing, or hemoptysis. GASTROINTESTINAL: No nausea, vomiting, diarrhea or constipation. GENITOURINARY: No dysuria, frequency, or change in urination. MUSCULOSKELETAL: No joint or muscle swelling or pain. No neck or back pain. SKIN: No rash. NEUROLOGIC: No headache, vertigo, loss of consciousness, or change in strength. +Dec sensation L face/LUE/LLE. ENDOCRINE: No increased thirst. No abnormal weight change. HEMATOLOGIC/LYMPHATIC: No anemia, easy bleeding, or history of blood clots. ALLERGIC/IMMUNOLOGIC: No hives or skin allergy. *Physical Exam - Vital Signs Last Vital Signs Temp Pulse Resp BP Pulse Ox 98.1 F 69 18 129/91 99 10/11/18 10:24 10/11/18 10:10 10/11/18 10:10 10/11/18 10:10 10/11/18 10:10 - Physical Exam Comments: GENERAL: Awake, alert, and fully oriented, in no acute distress HEAD: No signs of trauma EYES: PERRLA, EOMI, sclera anicteric, conjunctiva clear ENT: Auricles normal inspection, hearing grossly normal, nares patent, oropharynx clear without exudates. Moist mucosa NECK: Normal ROM, supple, no lymphadenopathy, JVD, or masses LUNGS: Breath sounds equal, clear to auscultation bilaterally. No wheezes, and no crackles HEART: Regular rate and rhythm, normal S1 and S2, no murmurs, rubs or gallops ABDOMEN: Soft, nontender, normoactive bowel sounds. No guarding, no rebound. No masses EXTREMITIES: Normal range of motion, no edema. No clubbing or cyanosis. No cords, erythema, or tenderness NEUROLOGICAL: Cranial nerves II through XII grossly intact. Normal speech, normal gait. Motor intact. Dec sensation to pinprick to L face, LUE, and LLE. SKIN: Warm, Dry, normal turgor, no rashes or lesions noted. NIH Stroke Scale - Last Known Well Date/Time & Onset Date Last Known Well: 10/11/18 Time Last Known Well: 03:30 - Initial Evaluation Level of consciousness: Alert Ask patient the month and their age: Answers both correctly Ask patient to open & close eyes; make fist and let go: Obeys both correctly Best gaze (horizontal eye movement): Normal Visual field testing: No visual field loss Facial paresis (Show teeth/raise eyebrows/close eyes tight): Normal symmetrical movement Motor Function: Left Arm: Normal Motor Function: Right Arm: Normal (extends arm 90 (or 45) degrees for 10 seconds without drift Motor Function: Left Leg: Normal (extends leg 30 degrees for 5 seconds without drift) Motor Function: Right Leg: Normal (extends leg 30 degrees for 5 seconds without drift) Limb Ataxia: No ataxia Sensory(Use pinprick test arms,legs,trunk,face/side to side): Mild to moderate decrease in sensation Best language (Describe picture, name items, read sentences): No Aphasia Dysarthria (read several words): Normal articulation Extinction and Inattention: No abnormality - Total Score NIH Stroke Scale Score: 1 tPA Exclusion checklist 3-4.5h - Thrombolytic Therapy Candidate Is patient eligible for thrombolytic therapy: No - Ineligibility reason(s) Reasons No tPA given: Outside of window - delayed arrival Critical Care Time/[facility] Note - Medical Decision Making Note: 10/11/18 10:51 Pt with prior history of TIA in the past presenting with L sided decresaed sensation. Last known well more than 4.5 hours ago, so out of the window for tPA. Will obtain CVA/TIA labs and discuss with neuro pending [facility]. 10/11/18 14:11 Pt accepted for admission by Dr. Oconnor. *DC/Admit/Observation/Transfer Diagnosis at time of Disposition: TIA (transient ischemic attack) - Discharge Dispostion Condition at time of disposition: Stable Decision to Admit order: Yes - Referrals - Patient Instructions - Post Discharge Activity
[2018-10-11 11:10] LABS: BASO % 1.4 % (0-2.0); EOS % 4.1 % (0-4.5); HEMATOCRIT 42.4 % (32.4-45.2); HEMOGLOBIN 14.1 GM/dL (10.7-15.3); LYMPH % 27.4 % (8-40); MCH 30.1 pg (25.7-33.7); MCHC 33.3 g/dl (32.0-36.0); MEAN CELL VOLUME 90.2 fl (80-96); MEAN PLT VOLUME 10.9 fl (7.5-11.1); MONO % 6.5 % (3.8-10.2); NEUT % 60.6 % (42.8-82.8); PLATELET COUNT 235 K/MM3 (134-434); RDW 13.7 % (11.6-15.6); WHITE BLOOD COUNT 7.4 K/mm3 (4.0-10.0)
[2018-10-11 11:15] LABS: PH,URINE 6.5 (5.0-8.0); URINE APPEARANCE CLEAR; URINE BACTERIA 9.6 /hpf (NEGATIVE); URINE BILIRUBIN NEGATIVE (NEGATIVE); URINE CASTS 0 /lpf (0-8); URINE COLOR YELLOW; URINE GLUCOSE (UA) NEGATIVE (NEGATIVE); URINE KETONE NEGATIVE (NEGATIVE); URINE LEUK ESTERASE TRACE (NEGATIVE); URINE NITRITE NEGATIVE (NEGATIVE); URINE PROTEIN NEGATIVE (NEGATIVE); URINE RBC 8 /hpf (0-4); URINE UROBILINOGEN 0.2 mg/dL (0.2-1.0); URINE WBC 1 /hpf (0-5)
[2018-10-11 11:41] LABS: ALK PHOS 67 U/L (45-117); ANION GAP 4 MMOL/L (8-16); BILIRUBIN,TOTAL 0.4 mg/dL (0.2-1); BLOOD UREA NITROGEN 18 mg/dL (7-18); CALCIUM 9.5 mg/dL (8.5-10.1); CHLORIDE 106 mmol/L (98-107); CHOLESTEROL 165 mg/dL (50-200); CO2 30 mmol/L (21-32); CREATININE 0.9 mg/dL (0.55-1.3); GLUCOSE,RANDOM 87 mg/dL (74-106); HDL CHOLESTEROL 54 mg/dL (40-60); INR 1.04 (0.83-1.09); POTASSIUM 4.4 mmol/L (3.5-5.1); PROTHROMBIN TIME (PATIENT) 12.3 SEC (9.7-13.0); SGOT/AST 16 U/L (15-37); SGPT/ALT 22 U/L (13-61); SODIUM 140 mmol/L (136-145); TOT PROT 7.6 g/dl (6.4-8.2); TRIGLYCERIDES 130 mg/dL (0-150)
[2018-10-11] MEDS ORDERED: ONDANSETRON 4 MG/2 ML VIAL IVPUSH ONE (13:19)
[2018-10-11] MEDS ORDERED: ONDANSETRON 4 MG/2 ML VIAL ONE (13:21)
--- NOTE | 2018-10-11 14:42 | HP ---
Admitting History and Physical - Admission History of Present Illness: 53 yo F presents with dec sensation to the L face, arm, and leg upon waking up at 9am this morning. She states that she feels like her face is asleep. It waxes and wanes. She had a prior TIA within the last year, came to this hospital. Denies changes in strength. As per at bedside, her last known normal was at 3:30am. She states she has been under high emotional stress. Her son was murdered a few years ago, and last night she saw a story about a murder on TV that triggered her. Denies DAN, LOC, cp, SOB. in the morning today the noticed that her face dropping and her voice slurred so brought her to ER,patient took baby aspirin prior to comming to ER History Source: Patient, Family Member - Past Medical History Rheumatology: Yes: Lupus - Past Surgical History Past Surgical History: Yes: None - Smoking History Smoking history: Former smoker Have you smoked in the past 12 months: No Aproximately how many cigarettes per day: 10 If you are a former smoker, when did you quit?: 10 YEARS AGO - Alcohol/Substance Use Hx Alcohol Use: No History of Substance Use: reports: None Home Medications - Allergies Allergies/Adverse Reactions: Allergies Allergy/AdvReac Type Severity Reaction Status Date / Time No Known Allergies Allergy Verified 10/11/18 10:50 - Home Medications Home Medications: Ambulatory Orders Gabapentin 300 mg PO BID 08/12/18 Aspirin [ASA -] 81 mg PO DAILY #30 tab.chew 08/13/18 Review of Systems - Review of Systems Respiratory: reports: No Symptoms Gastrointestinal: reports: No Symptoms Genitourinary: reports: No Symptoms Physical Examination Vital Signs: Vital Signs Temperature 98.1 F 10/11/18 10:24 Pulse Rate 69 10/11/18 10:10 Respiratory Rate 18 10/11/18 10:10 Blood Pressure 129/91 10/11/18 10:10 O2 Sat by Pulse Oximetry (%) 99 10/11/18 10:10 Cardiovascular: Yes: Regular Rate and Rhythm, S1, S2 Respiratory: Yes: CTA Bilaterally Gastrointestinal: Yes: Normal Bowel Sounds, Soft Edema: No Neurological: Yes: Alert, Oriented, Facial Droop (left side), Other (decreased sensation in LUE and LLE) ...Motor Strength: LUE, LLE ( 3/), RUE, RLE (09/20) Labs: CBC, BMP 10/11/18 10:55 10/11/18 10:55 Problem List - Problems (1) TIA (transient ischemic attack) Assessment/Plan: neurology MRI lipid panel statin asprin PT eval Code(s): G45.9 - TRANSIENT CEREBRAL ISCHEMIC ATTACK, UNSPECIFIED (2) Lupus Assessment/Plan: stable no active flare Code(s): M32.9 - SYSTEMIC LUPUS ERYTHEMATOSUS, UNSPECIFIED
[2018-10-11] MEDS ORDERED: ALPRAZolam 0.25 MG TABLET PO PRN (15:20)
[2018-10-11] MEDS ORDERED: LORazepam 2 MG/ML SDV VIAL ONE (15:20)
--- NOTE | 2018-10-11 20:56 | CONSULT ---
Consult - text type - Consultation Consultation Note: NEUROLOGY CONSULTATION is greatly appreciated: This 53 yo RH woman with 2 surviving sons lost one to murder 3 1/2 years ago. 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 Seen here 1 1/2 months ago for palpitations and facial numbness which waxed and waned for 3 days. Told "ministroke." This AM symptoms recurred and worsened when she argued with her . ROS: Intermittent numbness in her hands (L>R) worst at night and not associated with facial numbness and palpitations Pt acknowledges depressed mood IN ER CT of head neg. Symptoms resolved with IV ativan. MRI of brain (reviewed): Normal study EXAM: Neck supple. L Tinel's NEURO: MS: Awake alert, Ox3. MS/speech: Normal CN II-XII: normal Motor: No drift or tremor. Normal strength, tone and bulk. Normal reflexes. Toes downgoing Coord: No FTN dystaxia Sensory: Normal vib in feet. Romberg -. Decreased Pin left dig II. Gait: Normal IMP: Essentially normal neurological exam Anxiety/panic attacks Underlying depression Possible carpal tunnel syndromes SUGGEST: Clonazepam 0.5 mg BID x 2-3 weeks Sertraline 25 mg PO q AM x 4 days then 50 mg qd Agree with remainder of workup as ordered. Thank you very much, Vijay Douglass MD
[2018-10-11] MEDS: clonazePAM 0.5 MG TABLET PO SCH (22:24)
[2018-10-11] MEDS: GABAPENTIN 300 MG CAPSULE (FP) PO SCH (22:24)
[2018-10-11] MEDS: ROSUVASTATIN CA 5 MG TABLET (FP) PO SCH (22:24)
[2018-10-11] MEDS: HEPARIN NA (PORCINE) 5,000 UNITS/ML 1ML VIAL SQ SCH (22:24)
[2018-10-12] MEDS: GABAPENTIN 300 MG CAPSULE (FP) PO SCH ×3 (06:22→21:51)
[2018-10-12 07:58] LABS: EOS % 6.2 % (0-4.5); HEMATOCRIT 40.1 % (32.4-45.2); HEMOGLOBIN 13.4 GM/dL (10.7-15.3); LYMPH % 39.8 % (8-40); MCH 30.3 pg (25.7-33.7); MCHC 33.3 g/dl (32.0-36.0); MEAN PLT VOLUME 11.1 fl (7.5-11.1); MONO % 8.1 % (3.8-10.2); NEUT % 43.9 % (42.8-82.8); PLATELET COUNT 210 K/MM3 (134-434); RBC 4.41 M/mm3 (3.60-5.2); RDW 13.7 % (11.6-15.6); WHITE BLOOD COUNT 7.1 K/mm3 (4.0-10.0)
[2018-10-12 08:09] LABS: INR 1.03 (0.83-1.09); PROTHROMBIN TIME (PATIENT) 12.2 SEC (9.7-13.0)
[2018-10-12 08:12] LABS: ACTIVATED PTT 34.1 SECONDS (25.2-36.5)
[2018-10-12 08:43] LABS: ALBUMIN 3.5 g/dl (3.4-5.0); ALK PHOS 58 U/L (45-117); ANION GAP 3 MMOL/L (8-16); BILIRUBIN,TOTAL 0.4 mg/dL (0.2-1); BLOOD UREA NITROGEN 19 mg/dL (7-18); CALCIUM 9.2 mg/dL (8.5-10.1); CHLORIDE 106 mmol/L (98-107); CO2 30 mmol/L (21-32); CREATININE 0.9 mg/dL (0.55-1.3); GLUCOSE,RANDOM 79 mg/dL (74-106); POTASSIUM 4.4 mmol/L (3.5-5.1); SGOT/AST 13 U/L (15-37); SGPT/ALT 19 U/L (13-61); SODIUM 139 mmol/L (136-145); TOT PROT 6.7 g/dl (6.4-8.2)
[2018-10-12] MEDS: SERTRALINE HCL 25 MG TABLET (FP) PO SCH (10:03)
[2018-10-12] MEDS: clonazePAM 0.5 MG TABLET PO SCH ×2 (10:03→21:51)
[2018-10-12] MEDS: HEPARIN NA (PORCINE) 5,000 UNITS/ML 1ML VIAL SQ SCH ×2 (10:03→21:51)
[2018-10-12] MEDS: ASPIRIN 81 MG CHEWABLE TABLETS PO SCH (10:03)
--- NOTE | 2018-10-12 15:15 | EKG ---
Test Reason : Blood Pressure : / mmHG Vent. Rate : 067 BPM Atrial Rate : 067 BPM P-R Int : 128 ms QRS Dur : 062 ms QT Int : 390 ms P-R-T Axes : 077 087 074 degrees QTc Int : 412 ms SINUS RHYTHM WITH OCCASIONAL PREMATURE VENTRICULAR COMPLEXES OTHERWISE NORMAL ECG WHEN COMPARED WITH ECG OF 12-AUG-2018 10:15, PREMATURE VENTRICULAR COMPLEXES ARE NOW PRESENT Confirmed by MIK DELEON MD ([id number]) on 10/12/2018 3:15:03 PM Referred By: Confirmed By:MIK DELEON MD
--- NOTE | 2018-10-12 16:05 | PN ---
Progress Note, Physician Chief Complaint: TIA History of Present Illness: Previous notes and events reviewed awake and alert NAD denies chest pain, SOB - Current Medication List Current Medications: Active Medications Aspirin (Asa -) 81 mg PO DAILY [facility] Last Admin: 10/12/18 10:03 Dose: 81 mg Clonazepam (Klonopin -) 0.5 mg PO BID [facility] Last Admin: 10/12/18 10:03 Dose: 0.5 mg Gabapentin (Neurontin -) 300 mg PO TID [facility] Last Admin: 10/12/18 14:53 Dose: 300 mg Heparin Sodium (Porcine) (Heparin -) 5,000 unit SQ BID [facility] Last Admin: 10/12/18 10:03 Dose: 5,000 unit Rosuvastatin Calcium (Crestor -) 5 mg PO HS [facility] Last Admin: 10/11/18 22:24 Dose: 5 mg Sertraline HCl (Zoloft -) 25 mg PO DAILY [facility] Last Admin: 10/12/18 10:03 Dose: 25 mg - Objective Vital Signs: Vital Signs Temperature 97.8 F 10/12/18 06:00 Pulse Rate 52 L 10/12/18 06:00 Respiratory Rate 18 10/12/18 06:00 Blood Pressure 100/54 L 10/12/18 06:00 O2 Sat by Pulse Oximetry (%) 100 10/12/18 06:00 Constitutional: Yes: No Distress, Calm Eyes: Yes: Conjunctiva Clear HENT: Yes: Nasal Congestion Cardiovascular: Yes: Regular Rate and Rhythm Respiratory: Yes: Regular, CTA Bilaterally Gastrointestinal: Yes: Normal Bowel Sounds, Soft Extremities: Yes: WNL Neurological: Yes: Alert, Oriented Psychiatric: Yes: Alert, Oriented Labs: CBC, BMP 10/12/18 06:55 10/12/18 06:55 INR, PTT INR 1.03 (0.83-1.09) 10/12/18 06:55 Problem List - Problems (1) TIA (transient ischemic attack) Assessment/Plan: -Carotid US shows no evidence of hemodynamically significant stenosis -neurology on board -MRI of brain reviewed with no acute evidence of infarct -PT -continue with Asa and Rosuvastatin Code(s): G45.9 - TRANSIENT CEREBRAL ISCHEMIC ATTACK, UNSPECIFIED Assessment/Plan see problem list dvt ppx
[2018-10-12] MEDS: ROSUVASTATIN CA 5 MG TABLET (FP) PO SCH (21:51)
[2018-10-13] MEDS: GABAPENTIN 300 MG CAPSULE (FP) PO SCH ×3 (06:12→21:01)
[2018-10-13 08:13] LABS: HEMATOCRIT 38.7 % (32.4-45.2); MCH 30.4 pg (25.7-33.7); MCHC 33.5 g/dl (32.0-36.0); MEAN CELL VOLUME 90.7 fl (80-96); MEAN PLT VOLUME 10.8 fl (7.5-11.1); PLATELET COUNT 199 K/MM3 (134-434); RBC 4.27 M/mm3 (3.60-5.2); RDW 13.6 % (11.6-15.6); WHITE BLOOD COUNT 6.8 K/mm3 (4.0-10.0)
[2018-10-13 08:15] LABS: ALBUMIN 3.4 g/dl (3.4-5.0); ALK PHOS 61 U/L (45-117); ANION GAP 4 MMOL/L (8-16); BILIRUBIN,TOTAL 0.4 mg/dL (0.2-1); BLOOD UREA NITROGEN 20 mg/dL (7-18); CALCIUM 9.1 mg/dL (8.5-10.1); CHLORIDE 108 mmol/L (98-107); CO2 31 mmol/L (21-32); POTASSIUM 4.5 mmol/L (3.5-5.1); SGOT/AST 14 U/L (15-37); SGPT/ALT 20 U/L (13-61); SODIUM 142 mmol/L (136-145); TOT PROT 6.4 g/dl (6.4-8.2)
[2018-10-13 08:25] LABS: GLUCOSE,RANDOM 49 mg/dL (74-106)
[2018-10-13] MEDS: clonazePAM 0.5 MG TABLET PO SCH ×2 (09:35→21:01)
[2018-10-13] MEDS: ASPIRIN 81 MG CHEWABLE TABLETS PO SCH (09:35)
[2018-10-13] MEDS: HEPARIN NA (PORCINE) 5,000 UNITS/ML 1ML VIAL SQ SCH ×2 (09:35→21:01)
[2018-10-13] MEDS: SERTRALINE HCL 25 MG TABLET (FP) PO SCH (09:35)
--- NOTE | 2018-10-13 16:27 | PN ---
Progress Note, Physician Chief Complaint: TIA History of Present Illness: Previous notes and events reviewed awake and alert NAD denies chest pain, SOB complain of feeling lightheaded , denies dizziness - Current Medication List Current Medications: Active Medications Aspirin (Asa -) 81 mg PO DAILY [facility] Last Admin: 10/13/18 09:35 Dose: 81 mg Clonazepam (Klonopin -) 0.5 mg PO BID [facility] Last Admin: 10/13/18 09:35 Dose: 0.5 mg Gabapentin (Neurontin -) 300 mg PO TID [facility] Last Admin: 10/13/18 15:16 Dose: 300 mg Heparin Sodium (Porcine) (Heparin -) 5,000 unit SQ BID [facility] Last Admin: 10/13/18 09:35 Dose: 5,000 unit Rosuvastatin Calcium (Crestor -) 5 mg PO HS [facility] Last Admin: 10/12/18 21:51 Dose: 5 mg Sertraline HCl (Zoloft -) 25 mg PO DAILY [facility] Last Admin: 10/13/18 09:35 Dose: 25 mg - Objective Vital Signs: Vital Signs Temperature 98.4 F 10/13/18 14:00 Pulse Rate 67 10/13/18 14:00 Respiratory Rate 20 10/13/18 05:00 Blood Pressure 106/59 L 10/13/18 14:00 O2 Sat by Pulse Oximetry (%) 100 10/13/18 02:00 Constitutional: Yes: No Distress, Calm Eyes: Yes: Conjunctiva Clear HENT: Yes: Atraumatic Cardiovascular: Yes: Regular Rate and Rhythm Respiratory: Yes: Regular, CTA Bilaterally Gastrointestinal: Yes: Normal Bowel Sounds, Soft Musculoskeletal: Yes: Muscle Weakness Extremities: Yes: WNL Edema: No Neurological: Yes: Alert, Oriented Psychiatric: Yes: Alert, Oriented (L side) Labs: CBC, BMP 10/13/18 06:30 10/13/18 06:30 INR, PTT INR 1.03 (0.83-1.09) 10/12/18 06:55 - ....Imaging MRI: Report Reviewed Problem List - Problems (1) TIA (transient ischemic attack) Assessment/Plan: -Carotid US shows no evidence of hemodynamically significant stenosis -neurology on board -MRI of brain reviewed with no acute evidence of infarct -PT -continue with Asa and Rosuvastatin Code(s): G45.9 - TRANSIENT CEREBRAL ISCHEMIC ATTACK, UNSPECIFIED Assessment/Plan see problem list dvt ppx D/C in AM
[2018-10-13 19:28] VITALS: TEMP 97.9
[2018-10-13] MEDS: ROSUVASTATIN CA 5 MG TABLET (FP) PO SCH (21:01)
[2018-10-14 05:31] VITALS: BP 110/63; PULSE 58
[2018-10-14] MEDS: GABAPENTIN 300 MG CAPSULE (FP) PO SCH (06:44)
[2018-10-14] MEDS: SERTRALINE HCL 25 MG TABLET (FP) PO SCH (09:26)
[2018-10-14] MEDS: ASPIRIN 81 MG CHEWABLE TABLETS PO SCH (09:26)
[2018-10-14] MEDS: HEPARIN NA (PORCINE) 5,000 UNITS/ML 1ML VIAL SQ SCH (09:26)
[2018-10-14] MEDS: clonazePAM 0.5 MG TABLET PO SCH (09:26)
--- NOTE | 2018-10-14 11:53 | DS ---
Physical Examination Vital Signs: Vital Signs Temperature 97.9 F 10/14/18 05:28 Pulse Rate 58 L 10/14/18 05:28 Respiratory Rate 20 10/14/18 08:23 Blood Pressure 110/63 10/14/18 05:28 O2 Sat by Pulse Oximetry (%) 100 10/14/18 08:23 Constitutional: Yes: Calm Cardiovascular: Yes: Regular Rate and Rhythm, S1, S2 Respiratory: Yes: CTA Bilaterally Gastrointestinal: Yes: Normal Bowel Sounds, Soft Edema: No Neurological: Yes: Alert, Oriented Labs: CBC, BMP 10/13/18 06:30 10/13/18 06:30 Discharge Summary Reason For Visit: TIA Current Active Problems Lupus (Acute) TIA (transient ischemic attack) (Acute) Other Procedures: carotid doppler no stenosis. MRI brain no acute infarct Hospital Course: 3 yo F presents with dec sensation to the L face, arm, and leg upon waking up at 9am this morning. She states that she feels like her face is asleep. It waxes and wanes. She had a prior TIA within the last year, came to this hospital. Denies changes in strength. As per at bedside, her last known normal was at 3:30am. She states she has been under high emotional stress. Her son was murdered a few years ago, and last night she saw a story about a murder on TV that triggered her. Denies DAN, LOC, cp, SOB. in the morning today the noticed that her face dropping and her voice slurred so brought her to ER,patient took baby aspirin prior to comming to ER admitted for stroke work up seen by neurology started on klonopin and setraline Condition: Stable - Instructions Disposition: HOME - Home Medications Comprehensive Discharge Medication List: Ambulatory Orders Gabapentin 300 mg PO BID 08/12/18 Aspirin [ASA -] 81 mg PO DAILY #30 tab.chew 08/13/18
== END 2018-10-14 12:25 | disposition home or self-care (01) ==
LOC: JER 09:55 → JERBED 14:11 → INTOOBSV 14:11 → J4W 19:25
PROVIDERS: ADMIT Student in an Organized Health Care Education/Training Program; ATTEND Student in an Organized Health Care Education/Training Program
PROC: 3E033GC Introduction of Other Therapeutic Substance into Peripheral Vein, Percutaneous Approach (ICD-10-PCS; principal; 2018-10-11)
PROC: 3E013GC Introduction of Other Therapeutic Substance into Subcutaneous Tissue, Percutaneous Approach (ICD-10-PCS; 2018-10-11)
DX: G45.9 Transient cerebral ischemic attack, unspecified (principal); M32.9 Systemic lupus erythematosus, unspecified; F41.0 Panic disorder [episodic paroxysmal anxiety]; F32.9 Major depressive disorder, single episode, unspecified; Z87.891 Personal history of nicotine dependence; Z79.82 Long term (current) use of aspirin
CPT/HCPCS: 36415; 70450-TC; 70551-TC; 80053; 81003; 82465; 82550; 82607; 82962; 83718; 83721; 84100; 84443; 84478; 84484; 85025; 85027; 85610; 85730; 86593; 93005; 93010; 93880-TC; 96372; 96374; 96375; 97116-GP; 97161-GP; 99281-25; G0378; J1644

== ENCOUNTER 2018-11-22 11:50 | Emergency (ER) | payer OTHER | END 2018-11-22 12:15 | disposition home or self-care (01) | LOC: FER 11:50 ==

== ENCOUNTER 2018-12-10 09:58 | Emergency (ER) | payer SELFPAY ==
[2018-12-10 10:18] VITALS: BP 109/92; PULSE 104; TEMP 98.1; BMI 14.8
--- NOTE | 2018-12-10 10:50 | PDOC ---
History of Present Illness - General Chief Complaint: Nausea/Vomiting Stated Complaint: Vomiting/Diarrhea/ABD PAIN Time Seen by Provider: 12/10/18 10:40 History Source: Patient Exam Limitations: No Limitations Past History - Travel Traveled outside of the country in the last 30 days: No Close contact w/someone who was outside of country & ill: No - Past Medical History Allergies/Adverse Reactions: Allergies Allergy/AdvReac Type Severity Reaction Status Date / Time No Known Allergies Allergy Verified 12/10/18 10:11 Home Medications: Ambulatory Orders Gabapentin [Neurontin -] 300 mg PO TID #90 capsule MDD 3 10/14/18 Ondansetron [Zofran Odt -] 4 mg SL TID #10 od.tablet 12/10/18 Sertraline HCl 25 mg PO DAILY 12/10/18 clonazePAM [Klonopin -] 0.5 mg PO DAILY PRN 12/10/18 Anemia: No Asthma: No Cancer: No Cardiac Disorders: No CVA: Yes (TIA) COPD: No CHF: No Dementia: No Diabetes: No GI Disorders: No Disorders: No HTN: No Hypercholesterolemia: No Liver Disease: No Psychiatric Problems: Yes (anxiety, depression) Seizures: No Thyroid Disease: No - Surgical History Abdominal Surgery: No Appendectomy: No Cardiac Surgery: No Cholecystectomy: No Lung Surgery: No Neurologic Surgery: No Orthopedic Surgery: Yes (Rt Hand) - Immunization History Immunization Up to Date: Yes - Suicide/Smoking/Psychosocial Hx Smoking History: Current every day smoker Have you smoked in the past 12 months: No Number of Cigarettes Smoked Daily: 10 If you are a former smoker, when did you quit?: 10 YEARS AGO Information on smoking cessation initiated: No Hx Alcohol Use: No Drug/Substance Use Hx: No Substance Use Type: None Hx Substance Use Treatment: No Review of Systems - Review of Systems Able to Perform ROS?: Yes Comments:: 12/10/18 10:46 CONSTITUTIONAL: Absent: fever, chills, diaphoresis, generalized weakness, malaise, loss of appetite HEENT: Absent: rhinorrhea, nasal congestion, throat pain, throat swelling, difficulty swallowing, mouth swelling, ear pain, eye pain, visual Changes CARDIOVASCULAR: Absent: chest pain, loss of consciousness, palpitations, irregular heart rate, peripheral edema RESPIRATORY: Absent: cough, shortness of breath, dyspnea with exertion, orthopnea, wheezing, stridor, hemoptysis GASTROINTESTINAL: Present: abdominal pain, nausea, vomiting, diarrhea Absent: abdominal distension , constipation, melena, hematochezia GENITOURINARY: Absent: dysuria, frequency, urgency, hesitancy, hematuria, flank pain, genital pain MUSCULOSKELETAL: Absent: myalgia, arthralgia, joint swelling SKIN: Absent: rash, itching, pallor HEMATOLOGIC/IMMUNOLOGIC: Absent: easy bleeding, easy bruising, lymphadenopathy, frequent infections ENDOCRINE: Absent: unexplained weight gain, unexplained weight loss, heat intolerance, cold intolerance NEUROLOGIC: Absent: headache, focal weakness or paresthesias, dizziness, unsteady gait, seizure, mental status changes, bladder or bowel incontinence PSYCHIATRIC: Absent: anxiety, depression, suicidal or homicidal ideation, hallucinations. Is the patient limited [place] proficient: No *Physical Exam - Vital Signs Last Vital Signs Temp Pulse Resp BP Pulse Ox 98.1 F 104 H 18 109/92 100 12/10/18 10:13 12/10/18 10:13 12/10/18 10:13 12/10/18 10:13 12/10/18 10:13 - Physical Exam Comments: 12/10/18 10:47 GENERAL: Well developed, well nourished. Awake and alert. No acute distress. HEENT: Normocephalic, atraumatic. PERRLA, EOMI. No conjunctival pallor. Sclera are non- icteric. Moist mucous membranes. Oropharynx is clear. NECK: Supple. Full ROM. No JVD. Carotid pulses 2+ and symmetric, without bruits. No thyromegaly. No lymphadenopathy. CARDIOVASCULAR: Regular rate and rhythm. No murmurs, rubs, or gallops. Distal pulses are 2+ and symmetric. PULMONARY: No evidence of respiratory distress. Lungs clear to auscultation bilaterally. No wheezing, rales or rhonchi. ABDOMINAL: TTP of the RUQ with (+) warren's sign. Soft. Non-distended. No rebound or guarding. No organomegaly. Normoactive bowel sounds. MUSCULOSKELETAL Normal range of motion at all joints. No bony deformities or tenderness. No CVA tenderness. EXTREMITIES: No cyanosis. No clubbing. No edema. No calf tenderness. SKIN: Warm and dry. Normal capillary refill. No rashes. No jaundice. NEUROLOGICAL: Alert, awake, appropriate. Cranial nerves 2-12 intact. No deficits to light touch and temperature in face, upper extremities and lower extremities. No motor deficits in the in face, upper extremities and lower extremities. Normoreflexic in the upper and lower extremities. Normal speech. Toes are down- going bilaterally. Gait is normal without ataxia. PSYCHIATRIC: Cooperative. Good eye contact. Appropriate mood and affect. ED Treatment Course - LABORATORY CBC & Chemistry Diagram: 12/10/18 11:10 12/10/18 11:10 Medical Decision Making - Medical Decision Making 12/10/18 10:47 The patient is a 53-year-old female past medical she of anxiety disorder, who presents to the emergency department today with right upper quadrant pain. The patient states she's had the symptoms over the past 2 weeks and was evaluated by Her primary care doctor last week for the pain. She states that she can put on a strict diet of bananas, applesauce aches toast for suspicion of gallstones. She states she had vomited this morning when the pain started. She notes that she has vomited twice and is incredibly nauseous. Also admits to associated diarrhea. Denies fevers, chills, difficulty breathing, chest pain, shortness of breath, frequency, urgency and hematuria. The patient states she recently finished antibiotics for UTI. A/P: Abdominal pain On exam patient with right upper quadrant tenderness and a positive Warren sign. Negative CVA tenderness or suprapubic tenderness Differential diagnosis includes but is not limited to, cholecystitis choledocholithiasis, pancreatitis, viral illness We'll order basic labs, right upper quadrant ultrasound IV fluids, IV Tylenol and Zofran for pain Reevaluate 12/10/18 13:28 Pain resolved after meds Abd US negative for golden Sent for CTAP; no acute pathology found. Probable biliary colic Will dc home to f/u with PCP, GI, and surgery *DC/Admit/Observation/Transfer Diagnosis at time of Disposition: Abdominal pain Qualifiers: Abdominal location: right upper quadrant Qualified Code(s): R10.11 - Right upper quadrant pain - Discharge Dispostion Disposition: HOME Condition at time of disposition: Stable Decision to Admit order: No - Prescriptions Prescriptions: Ondansetron [Zofran Odt -] 4 mg SL TID #10 od.tablet - Referrals Referrals: Sonny Will MD [Staff Physician] - Seth Escobar MD [Primary Care Provider] - Elliot Wadsworth MD [Staff Physician] - - Patient Instructions Printed Discharge Instructions: DI for Biliary Colic Additional Instructions: Your lab work and Ultrasound and CT scan were normal today; I suspect you have biliary colic Please continue to eat a bland diet (bananas, rice, apple sauce, toast, clear liquids) Take the Zofran eveyr 8 hours as needed for nausea You may take Tylenol 650mg every 6 hours as needed for pain Follow up with Dr. Escobar this week. A surgery referral has been provided to you Return to the ER for worsening pain, fever, vomiting despite medication, or if you have any changes in your symptoms - Post Discharge Activity Forms/Work/School Notes: Back to Work
[2018-12-10] MEDS ORDERED: ACETAMINOPHEN 1000 MG/100 ML VIAL (NON FORMULARY) IVPB ONE (10:51)
[2018-12-10] MEDS ORDERED: ONDANSETRON 4 MG/2 ML VIAL IVPUSH ONE (10:51)
[2018-12-10] MEDS ORDERED: SODIUM CHLORIDE 1,000 ML IV STA (10:51)
[2018-12-10] MEDS ORDERED: ONDANSETRON 4 MG/2 ML VIAL ONE (10:57)
[2018-12-10] MEDS ORDERED: ACETAMINOPHEN INJECTION 100 ML IVPB ONE (10:57)
[2018-12-10 11:30] LABS: BASO % 1.1 % (0-2.0); EOS % 3.8 % (0-4.5); EPI CELLS 0.4 /HPF (0-5/HPF); HEMOGLOBIN 12.5 GM/dL (10.7-15.3); HYALINE CASTS 0 /lpf (0-8); LYMPH % 24.3 % (8-40); MCH 29.5 pg (25.7-33.7); MCHC 32.9 g/dl (32.0-36.0); MEAN CELL VOLUME 89.7 fl (80-96); MEAN PLT VOLUME 10.7 fl (7.5-11.1); MONO % 5.5 % (3.8-10.2); NEUT % 65.3 % (42.8-82.8); RBC 4.24 M/mm3 (3.60-5.2); RDW 13.6 % (11.6-15.6); URINE APPEARANCE CLEAR; URINE BACTERIA 3.4 /hpf (NEGATIVE); URINE BILIRUBIN NEGATIVE (NEGATIVE); URINE COLOR YELLOW; URINE GLUCOSE (UA) NEGATIVE (NEGATIVE); URINE KETONE NEGATIVE (NEGATIVE); URINE LEUK ESTERASE TRACE (NEGATIVE); URINE NITRITE NEGATIVE (NEGATIVE); URINE PROTEIN NEGATIVE (NEGATIVE); URINE RBC 1 /hpf (0-4); URINE UROBILINOGEN 0.2 mg/dL (0.2-1.0); URINE WBC 1 /hpf (0-5); WHITE BLOOD COUNT 8.3 K/mm3 (4.0-10.0)
[2018-12-10 11:40] LABS: PLATELET COUNT 215 K/MM3 (134-434)
[2018-12-10 11:59] LABS: INR 1.02 (0.83-1.09)
[2018-12-10 12:02] LABS: ALBUMIN 3.6 g/dl (3.4-5.0); BILIRUBIN,TOTAL 0.5 mg/dL (0.2-1); BLOOD UREA NITROGEN 15.2 mg/dL (7-18); CREATININE 0.8 mg/dL (0.55-1.3); POTASSIUM 4.3 mmol/L (3.5-5.1); TOT PROT 6.7 g/dl (6.4-8.2)
[2018-12-10] MEDS ORDERED: LIDOCAINE VISCOUS 2% ORAL/TOP 20 ML UNIT-DOSE CUP MM ONE (13:48)
[2018-12-10] MEDS ORDERED: FAMOTIDINE 20 MG/50 ML IVPB 20 MG/50 ML MG IVPB ONE ×2 (13:48→14:53)
[2018-12-10] MEDS ORDERED: MAG HYDROX/AL HYDROX/SIMETH -MYLANTA- ORAL SUSPENSION PO ONE (13:48)
[2018-12-10] MEDS ORDERED: MAG HYDROX/AL HYDROX/SIMETH 30 ML UNIT-DOSE CUP ONE (14:52)
[2018-12-10] MEDS ORDERED: LIDOCAINE VISCOUS 2% ORAL/TOP 20 ML UNIT-DOSE CUP ONE (14:52)
--- NOTE | 2018-12-10 16:21 | PDOC ---
*Physical Exam - Vital Signs Last Vital Signs Temp Pulse Resp BP Pulse Ox 98.1 F 104 H 18 109/92 100 12/10/18 10:13 12/10/18 10:13 12/10/18 10:13 12/10/18 10:13 12/10/18 10:13 - Physical Exam General Appearance: Yes: Nourished HEENT: positive: KUN Neck: positive: Trachea midline Respiratory/Chest: positive: Lungs Clear, Normal Breath Sounds Cardiovascular: positive: Regular Rhythm, Regular Rate, S1, S2 Gastrointestinal/Abdominal: positive: Normal Bowel Sounds, Tender (ruq ttp no rebound no gaurding, epigastrum ttp. ) Musculoskeletal: negative: Normal Inspection Extremity: positive: Normal Capillary Refill Integumentary: positive: Normal Color, Dry, Warm ED Treatment Course - LABORATORY CBC & Chemistry Diagram: 12/10/18 11:10 12/10/18 11:10 - ADDITIONAL ORDERS Additional order review: Laboratory Results 12/10/18 12/10/18 12/10/18 11:10 11:10 11:10 PT with INR 12.00 INR 1.02 Sodium Potassium Chloride Carbon Dioxide Anion Gap BUN Creatinine Est GFR (CKD-EPI)AfAm Est GFR (CKD-EPI)NonAf Random Glucose Calcium Total Bilirubin AST ALT Alkaline Phosphatase Total Protein Albumin Lipase 112 Urine Color Yellow Urine Appearance Clear Urine pH 5.0 D Ur Specific [place] 1.013 Urine Protein Negative Urine Glucose (UA) Negative Urine Ketones Negative Urine Blood 1+ H Urine Nitrite Negative Urine Bilirubin Negative Urine Urobilinogen 0.2 Ur Leukocyte Esterase Trace Urine WBC (Auto) 1 Urine RBC (Auto) 1 Urine Casts (Auto) 0 U Epithel Cells (Auto) 0.4 Urine Bacteria (Auto) 3.4 12/10/18 11:10 PT with INR INR Sodium 141 Potassium 4.3 Chloride 111 H Carbon Dioxide 25 Anion Gap 5 L BUN 15.2 Creatinine 0.8 Est GFR (CKD-EPI)AfAm 96.87 Est GFR (CKD-EPI)NonAf 83.58 Random Glucose 86 Calcium 9.0 Total Bilirubin 0.5 AST 13 L ALT 18 Alkaline Phosphatase 74 Total Protein 6.7 Albumin 3.6 Lipase Urine Color Urine Appearance Urine pH Ur Specific [place] Urine Protein Urine Glucose (UA) Urine Ketones Urine Blood Urine Nitrite Urine Bilirubin Urine Urobilinogen Ur Leukocyte Esterase Urine WBC (Auto) Urine RBC (Auto) Urine Casts (Auto) U Epithel Cells (Auto) Urine Bacteria (Auto) 12/10/18 11:10 RBC 4.24 MCV 89.7 MCHC 32.9 RDW 13.6 MPV 10.7 Neutrophils % 65.3 D Lymphocytes % 24.3 D Monocytes % 5.5 Eosinophils % 3.8 Basophils % 1.1 - Medications Given in the ED: ED Medications Discontinued Medications Generic Name Dose Route Start Last Admin Trade Name Gregoria PRN Reason Stop Dose Admin Acetaminophen 1,000 mg 12/10/18 10:51 12/10/18 11:13 Ofirmev Injection - IVPB 12/10/18 10:52 1,000 mg ONCE ONE Administration Al Hydroxide/Mg Hydroxide 30 ml 12/10/18 13:48 12/10/18 15:02 Mylanta Suspension - PO 12/10/18 13:49 30 ml ONCE ONE Administration Sodium Chloride 1,000 mls @ 1,000 mls/hr 12/10/18 10:51 12/10/18 11:13 Normal Saline - IV 12/10/18 11:50 1,000 mls/hr ASDIR STA Administration Famotidine/Sodium Chloride 20 mg in 50 mls @ 100 mls/hr 12/10/18 13:48 15:02 Pepcid 20 Mg Premixed Ivpb - IVPB 12/10/18 14:17 100 mls/hr ONCE ONE Administration Lidocaine HCl 20 ml 12/10/18 13:48 12/10/18 15:02 Xylocaine 2% Viscous Oral - MM 12/10/18 13:49 20 ml ONCE ONE Administration Ondansetron HCl 4 mg 12/10/18 10:51 12/10/18 11:13 Zofran Injection IVPUSH 12/10/18 10:52 4 mg ONCE ONE Administration Medical Decision Making - Medical Decision Making 12/10/18 16:17 53 yo F with h/o depression, htn decreased appetite with 3 months of epigastric pain, diarrhea. loose watery stools all nonbloody. no recent travel. no recent abx. did have blood in stool at onset of stool several weeks ago. 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 has suffered severe depression after her son was murdered several years ago, and has not had normal diet every since. denies etoh use. no other complaints. no cough no f/c no urinary sxs. on exam milw ruq epigastric ttp. focused ED us ruq performed. neg berumen's cbd normal nostones, no wall thickening, normal cBD impression: normal GB plan ct a/p ct a/p unremarkable. will dc home GI followup. mild improvement with GI cocktail. will likely require outpt endoscopy. pt seen and examined in conjunction with YOVANI Peña agree with her assessment and plan. *DC/Admit/Observation/Transfer Diagnosis at time of Disposition: Abdominal pain Qualifiers: Abdominal location: right upper quadrant Qualified Code(s): R10.11 - Right upper quadrant pain - Discharge Dispostion Disposition: HOME Condition at time of disposition: Stable - Prescriptions Prescriptions: Ondansetron [Zofran Odt -] 4 mg SL TID #10 od.tablet - Referrals Referrals: Sonny Will MD [Staff Physician] - Elliot Wadsworth MD [Staff Physician] - Seth Escobar MD [Primary Care Provider] - - Patient Instructions Printed Discharge Instructions: DI for Biliary Colic Additional Instructions: Your lab work and Ultrasound and CT scan were normal today; I suspect you have biliary colic Please continue to eat a bland diet (bananas, rice, apple sauce, toast, clear liquids) Take the Zofran eveyr 8 hours as needed for nausea You may take Tylenol 650mg every 6 hours as needed for pain Follow up with Dr. Escobar this week. A surgery referral has been provided to you Return to the ER for worsening pain, fever, vomiting despite medication, or if you have any changes in your symptoms - Post Discharge Activity Forms/Work/School Notes: Back to Work
== END 2018-12-10 16:39 | disposition home or self-care (01) ==
LOC: JER 09:58
PROC: 3E033GC Introduction of Other Therapeutic Substance into Peripheral Vein, Percutaneous Approach (ICD-10-PCS; principal; 2018-12-10)
PROC: 3E033NZ Introduction of Analgesics, Hypnotics, Sedatives into Peripheral Vein, Percutaneous Approach (ICD-10-PCS; 2018-12-10)
PROC: 3E033GC Introduction of Other Therapeutic Substance into Peripheral Vein, Percutaneous Approach (ICD-10-PCS; 2018-12-10)
DX: R10.11 Right upper quadrant pain (principal)
CPT/HCPCS: 36415; 74177-TC; 76705-TC; 80053; 81003; 83690; 85025; 85610; 87077; 87086; 99283-25; J0131; J7030

== ENCOUNTER 2019-01-13 11:03 | Inpatient (IN) | payer OTHER ==
[2019-01-13] MEDS ORDERED: LACTATED RINGERS SOLUTION 1,000 ML IV STA (11:21)
[2019-01-13] MEDS ORDERED: FAMOTIDINE 20 MG/50 ML IVPB 20 MG/50 ML MG IVPB ONE ×2 (11:21→11:33)
[2019-01-13] MEDS ORDERED: METOCLOPRAMIDE HCL INJECTION 10 MG/2 ML VIAL IVPUSH ONE (11:22)
--- NOTE | 2019-01-13 11:30 | PDOC ---
History of Present Illness - General Chief Complaint: CVA/TIA Stated Complaint: POSS STROKE Time Seen by Provider: 01/13/19 11:21 History Source: Patient, Family - History of Present Illness Initial Comments: 01/13/19 12:04 53 yo F presents with anxiety, depression, lupus, chronic Lyme, TIA (with residual numbness on left side) presenting with left face, arm and leg weakness/ decreased sensation beginning at approx 930AM this morning.. She admits to feeling as her face is asleep, with numbness/tingling sensation, currently improving. She was able to do her usual routine activities, dropped off her son to work, returned home and was arguing over the phone with her when symptoms started while sitting on the couch. At that time while sitting, she felt very dizzy/lightheadedness, chest tightness, shortness of breath and nausea. Had similar episode in September 2018, had been admitted for TIA/stroke workup, MRI unremarkable and dxd with TIA. since then, pt states her left arm and legs have been more weak than the right side. no falls/trauma Denies DAN, LOC, seizure, urinary incontinence, bowel or bladder dysfunction She states she has been under high emotional stress. Her son was murdered at [employer] a 4 years ago, she also has an elderly grandfather who has been ill. She recently attended a soft ball game this past weekend, and her murdered son was a ball player. PMD Dr Escobar 01/13/19 12:50 01/13/19 13:15 tPA Exclusion Checklist 0-3hr - Time Elapsed Date last known well: 01/13/19 Time last known well: 09:30 Elaspsed time: Day(s) and 4 Hour(s) and 50 Minutes - Thrombolytic Therapy Candidate Is the patient eligible for Thrombolytic Therapy?: No - Exclusion Criteria 0-3hr SBP greater than 185 or DBP greater than 110mmHg despite tx: No Recent IC/spinal surgery,head trauma or stroke w/in last 3mo: No Hx of previous IC hemorrhage, IC neoplasm, AVM or aneurysm: No Active internal bleeding: No Blding diathesis(low plt ct, inc PTT,INR>1.7 or use of NOAC): No Symptoms suggest subarachnoid hemorrhage: No CT demonstrates multilobar infarct(>1/3 cerebral hemiphere): No Arterial puncture at noncompressible site in previous 7 days: No Blood glucose concentration less than 50mg/dL (2.7mmol/L): No - Relative Exclusion Criteria 0-3h Life expectancy <1yr/severe co-morbid illness/HOLISTIC PULSER on admit: No : No Patient/family refused: No Rapid improvement: Yes Stroke severity too mild: Yes Recent acute CT (w/in previous 3 months): No Seizure at onset with postictal residual neuro impairments: No Major surgery or serious trauma w/in previous 14 days: No Recent GI or hemorrhage (w/in previous 21 days): No - Ineligibility reason(s) Reasons No tPA given: See reason(s) noted above NIH Stroke Scale - Last Known Well Date/Time & Onset Date Last Known Well: 01/13/19 Time Last Known Well: 09:30 - Initial Evaluation Level of consciousness: Alert Ask patient the month and their age: Answers both correctly Ask patient to open & close eyes; make fist and let go: Obeys both correctly Best gaze (horizontal eye movement): Normal Visual field testing: No visual field loss Facial paresis (Show teeth/raise eyebrows/close eyes tight): Normal symmetrical movement Motor Function: Left Arm: Normal Motor Function: Right Arm: Normal (extends arm 90 (or 45) degrees for 10 seconds without drift Motor Function: Left Leg: Normal (extends leg 30 degrees for 5 seconds without drift) Motor Function: Right Leg: Normal (extends leg 30 degrees for 5 seconds without drift) Limb Ataxia: No ataxia Sensory(Use pinprick test arms,legs,trunk,face/side to side): Mild to moderate decrease in sensation Best language (Describe picture, name items, read sentences): No Aphasia Dysarthria (read several words): Normal articulation Extinction and Inattention: No abnormality - Total Score NIH Stroke Scale Score: 1 Past History - Past Medical History Allergies/Adverse Reactions: Allergies Allergy/AdvReac Type Severity Reaction Status Date / Time No Known Allergies Allergy Verified 12/10/18 10:11 Home Medications: Ambulatory Orders Gabapentin [Neurontin -] 300 mg PO TID #90 capsule MDD 3 10/14/18 Ondansetron [Zofran Odt -] 4 mg SL TID #10 od.tablet 12/10/18 Sertraline HCl 25 mg PO DAILY 12/10/18 clonazePAM [Klonopin -] 0.5 mg PO DAILY PRN 12/10/18 Anemia: No Asthma: No Cancer: No Cardiac Disorders: No CVA: Yes (TIA) COPD: No CHF: No Dementia: No Diabetes: No GI Disorders: No Disorders: No HTN: No Hypercholesterolemia: No Liver Disease: No Psychiatric Problems: Yes (anxiety, depression) Seizures: No Thyroid Disease: No - Surgical History Abdominal Surgery: No Appendectomy: No Cardiac Surgery: No Cholecystectomy: No Lung Surgery: No Neurologic Surgery: No Orthopedic Surgery: Yes (Rt Hand) - Immunization History Immunization Up to Date: Yes - Suicide/Smoking/Psychosocial Hx Smoking History: Current every day smoker Have you smoked in the past 12 months: No Number of Cigarettes Smoked Daily: 10 If you are a former smoker, when did you quit?: 10 YEARS AGO Hx Alcohol Use: No Drug/Substance Use Hx: No Substance Use Type: None Hx Substance Use Treatment: No Review of Systems - Review of Systems Able to Perform ROS?: Yes Comments:: 01/13/19 11:27 Review of systems Constitutional: no fevers or chills. HEENT: +dizziness. no headache. No congestion. No visual/hearing disturbances. no eye pain, tinnitis, eye redness/discharge. CVS: no syncope. +chest tightness. Resp: +SOB. No cough. Gastrointestinal: no abdominal pain, +nausea +vomiting. Genitourinary: no urinary sx, hematuria. no incontinence. MUSCULOSKELETAL: No joint pain and swelling. No neck or back pain. SKIN: no redness or skin changes, no discharge, no rash. No wounds. Hematologic: no easy bruising/bleeding. NEUROLOGIC: +dizziness. No headache, LOC or altered mental status. +weakness, numbness or tingling. Psych: +anxiety or depression Allergic/Immunologic: no allergies All other systems reviewed and negative, or as documented in HPI. 01/13/19 12:05 01/13/19 13:14 *Physical Exam - Physical Exam Comments: 01/13/19 11:27 General: awake, malaised appearing, mild distress 2/2 nausea HEENT: NCAT, PERRL, EOMI, no nystagmus, clear conjunctiva, anicteric, moist mucus membranes, clear oropharynx, no oral lesions.. Neck: neck supple, FROM, no carotid bruit Resp: CTAB, normal and even respirations, no respiratory distress CVS: RRR, no murmurs, 2+ peripheral pulses throughout, no peripheral edema Abdomen: soft, NTND, no peritoneal signs. Back: nontender, normal inspection and ROM MSK: no edema, ROWAN x4, ROM intact. No clubbing or cyanosis. normal bulk and tone. Neuro: alert Strength prox and distally 5/5 throughout against resistance. ROWAN x4. No cerebellar signs, no dysmetria, bilateral finger to nose equal and symmetric. Speech clear. no dysarthria, no aphasia. no pronator drift, no lower extremity drift BLE 5/5 against resistance. decreased sensation over left lower face to pinprick , CN VII grossly intact, 5/5 masseters. decreased sensation to LUE and LLE to pinprick (baseline per patient). Psych: calm and cooperative Skin: warm and well perfused, cap refill <2 sec, normal color 01/13/19 11:30 01/13/19 12:06 01/13/19 13:13 Heart Score/ECG Review #1 ECG reviewed & interpreted by me at: 11:15 General ECG Interpretation: Sinus Rhythm, Normal Rate, Normal Intervals Compared to previous ECG there are: No significant change 01/13/19 12:18 EKG normal sinus rhythm at 72 bpm, no interval abnormalities, narrow QRS, ST and T wave segments and morphology normal. ED Treatment Course - LABORATORY CBC & Chemistry Diagram: 01/13/19 11:32 01/13/19 11:32 - RADIOLOGY Radiology Studies Ordered: Category Date Time Status HEAD CT (STROKE) [CT] Stat CT Scan 01/13/19 11:10 Completed Medical Decision Making - Medical Decision Making 01/13/19 12:15 See HPI for details. Prior notes reviewed, including admissions, discharges and consultations. Vital signs reviewed, wnl. Vital Signs Temp Pulse Resp BP Pulse Ox 98.6 F 79 19 114/77 98 01/13/19 11:04 01/13/19 11:04 01/13/19 11:04 01/13/19 11:04 01/13/19 11:04 laboratory results and imaging reviewed, basic labs and lytes wnl, Cardiac panel_neg trop, reassuring. EKG normal sinus rhythm at 72 bpm, no interval abnormalities, narrow QRS, ST and T wave segments and morphology normal. CT head neg for bleed/mass/infarction acutely. ED course -interventions: IVF, reglan, reassess not tpa candidate, given resolving symptoms and low NIHSS of 1, (chronic paresthesia/numbness in her Left side) - consults and recommendations: Dr Douglass, spoke with YOVANI Zimmer about case will follow 01/13/19 12:51 - on reassessment, symptoms are improving. had discussed with family about tpa, with resolving sx, harms will outweigh benefits. no further episodes of n/v, mentating admit tele for stroke workup, TIA/CVA admit to Dr Escobar service. s/o to Dr Oconnor 01/13/19 14:00 - notified primary care team The patient has requested to leave the ED against medical advice. The patient reason(s) for leaving include, but are not limited to, the following: declines admission and wishes for going home. Discussion at the bedside with patient and family. Pt has capacity to make medical decisions. I believe this patient is of sound mind and competent to refuse medical care. The patient is responding and asking questions appropriately. The patient is oriented to person, place and time. The patient is not psychotic, delusional, suicidal, homicidal or hallucinating. The patient demonstrates a normal mental capacity to make decisions regarding their healthcare. The patient is clinically sober and does not appear to be under the influence of any illicit drugs at this time. The patient has been advised of the risks, in layman terms, of leaving AMA which include, but are not limited to cardiac arrest, severe infection, blood stream infection, dehydration, bleeding, liver failure, myocardial infarction, arrhythmia, stroke, carotid stenosis/dissection/aneurysm, respiratory failure, delay in diagnosis and management, loss of current lifestyle, loss of functional status, multiorgan failure, coma, severe disability and . Alternatives have been offered - the patient remains steadfast in their wish to leave. The patient has been advised that should they change their mind they are welcome to return to this hospital, or any other, at any time. The patient understands that in no way does an AMA discharge mean that I do not want them to have the best medical care available. To this end, I have provided appropriate prescriptions, referrals, and discharge instructions. The patient did sign AMA paperwork. The above discussion was witnessed by another member of staff, RN November, treatment plan still discussed 01/13/19 14:09 01/13/19 14:21 01/13/19 14:21 *DC/Admit/Observation/Transfer Diagnosis at time of Disposition: Facial paresthesia - Discharge Dispostion Disposition: AGAINST MEDICAL ADVICE Condition at time of disposition: Fair Decision to Admit order: Yes Decision to Admit order Date/Time: 01/13/19 13:00 Vital Signs Temp Pulse Resp BP Pulse Ox 98.6 F 79 19 114/77 98 01/13/19 11:04 01/13/19 11:04 01/13/19 11:04 01/13/19 11:04 01/13/19 11:04 - Referrals Referrals: Seth Escobar MD [Primary Care Provider] - Vijay Douglass MD [Staff Physician] - - Patient Instructions Printed Discharge Instructions: DI for Numbness/tingling Additional Instructions: you are choosing to leave against medical advice for stroke/TIA workup. You have been advised of the risks, in layman terms, of leaving AMA which include, but are not limited to cardiac arrest, severe infection, blood stream infection, dehydration, bleeding, liver failure, myocardial infarction, arrhythmia, stroke, carotid stenosis/aneurysm/dissection, respiratory failure, delay in diagnosis and management, loss of current lifestyle, loss of functional status, multiorgan failure, coma, severe disability and . Alternatives have been offered - You have been advised that should they change their mind they are welcome to return to this hospital, or any other, at any time. The patient understands that in no way does an AMA discharge mean that I do not want them to have the best medical care available. To this end, I have provided appropriate prescriptions, referrals, and discharge instructions. The patient did sign AMA paperwork. The above discussion was witnessed by another member of staff, RN please follow up with your primary care doctor regarding your symptoms, a neurologist has been provided as well. - Post Discharge Activity
[2019-01-13] MEDS ORDERED: METOCLOPRAMIDE HCL INJECTION 10 MG/2 ML VIAL ONE (11:33)
[2019-01-13 11:48] VITALS: BMI 16.2
[2019-01-13 12:02] LABS: BASO % 0.8 % (0-2.0); EOS % 0.9 % (0-4.5); HEMATOCRIT 39.9 % (32.4-45.2); HEMOGLOBIN 13.1 GM/dL (10.7-15.3); LYMPH % 18.4 % (8-40); MCH 29.6 pg (25.7-33.7); MCHC 32.9 g/dl (32.0-36.0); MEAN PLT VOLUME 11.3 fl (7.5-11.1); MONO % 4.1 % (3.8-10.2); NEUT % 75.8 % (42.8-82.8); PLATELET COUNT 209 K/MM3 (134-434); RBC 4.44 M/mm3 (3.60-5.2); RDW 13.7 % (11.6-15.6); WHITE BLOOD COUNT 9.3 K/mm3 (4.0-10.0)
[2019-01-13 12:12] LABS: INR 1.04 (0.83-1.09); PROTHROMBIN TIME (PATIENT) 12.3 SEC (9.7-13.0)
[2019-01-13 12:15] LABS: ACTIVATED PTT 35.3 SECONDS (25.2-36.5)
[2019-01-13 12:21] LABS: ALBUMIN 4.3 g/dl (3.4-5.0); BILIRUBIN,TOTAL 0.5 mg/dL (0.2-1); BLOOD UREA NITROGEN 21.6 mg/dL (7-18); CALCIUM 9.6 mg/dL (8.5-10.1); POTASSIUM 3.6 mmol/L (3.5-5.1); TOT PROT 7.5 g/dl (6.4-8.2)
[2019-01-13 15:15] VITALS: BP 110/68; PULSE 78; TEMP 98.2
--- NOTE | 2019-01-13 15:54 | HP ---
Admitting History and Physical - Primary Care Physician PCP: Seth Escobar - Admission Chief Complaint: left face and arm weakness History of Present Illness: 53 yo F presents with anxiety, depression, lupus, chronic Lyme, TIA (with residual numbness on left side) presenting with left face, arm and leg weakness/ decreased sensation beginning at approx 930AM this morning.. She admits to feeling as her face is asleep, with numbness/tingling sensation, currently improving. She was able to do her usual routine activities, dropped off her son to work, returned home and was arguing over the phone with her when symptoms started while sitting on the couch. At that time while sitting, she felt very dizzy/lightheadedness, chest tightness, shortness of breath and nausea. Had similar episode in September 2018, had been admitted for TIA/stroke workup, MRI unremarkable and dxd with TIA. since then, pt states her left arm and legs have been more weak than the right side. no falls/trauma Denies DAN, LOC, seizure, urinary incontinence, bowel or bladder dysfunction She states she has been under high emotional stress. Her son was murdered at [employer] a 4 years ago, she also has an elderly grandfather who has been ill. She recently attended a soft ball game this past weekend, and her murdered son was a ball player. - Past Medical History Rheumatology: Yes: Lupus - Past Surgical History Past Surgical History: Yes: None - Smoking History Smoking history: Current every day smoker Have you smoked in the past 12 months: No Aproximately how many cigarettes per day: 10 If you are a former smoker, when did you quit?: 10 YEARS AGO - Alcohol/Substance Use Hx Alcohol Use: No History of Substance Use: reports: None Home Medications - Allergies Allergies/Adverse Reactions: Allergies Allergy/AdvReac Type Severity Reaction Status Date / Time No Known Allergies Allergy Verified 12/10/18 10:11 - Home Medications Home Medications: Ambulatory Orders Gabapentin [Neurontin -] 300 mg PO TID #90 capsule MDD 3 10/14/18 Ondansetron [Zofran Odt -] 4 mg SL TID #10 od.tablet 12/10/18 Sertraline HCl 25 mg PO DAILY 12/10/18 clonazePAM [Klonopin -] 0.5 mg PO DAILY PRN 12/10/18 Physical Examination Vital Signs: Vital Signs Temperature 98.2 F 01/13/19 14:25 Pulse Rate 78 01/13/19 14:25 Respiratory Rate 19 01/13/19 14:25 Blood Pressure 110/68 01/13/19 14:25 O2 Sat by Pulse Oximetry (%) 99 01/13/19 14:25 Labs: CBC, BMP 01/13/19 11:32 01/13/19 11:32
--- NOTE | 2019-01-14 09:31 | EKG ---
Test Reason : Blood Pressure : / mmHG Vent. Rate : 072 BPM Atrial Rate : 072 BPM P-R Int : 148 ms QRS Dur : 072 ms QT Int : 384 ms P-R-T Axes : 072 077 057 degrees QTc Int : 420 ms NORMAL SINUS RHYTHM NORMAL ECG WHEN COMPARED WITH ECG OF 11-OCT-2018 10:11, PREMATURE VENTRICULAR COMPLEXES ARE NO LONGER PRESENT Confirmed by Charles Hudson MD ([id number]) on 01/14/2019 9:30:39 AM Referred By: Confirmed By:Charles Hudson MD
== END 2019-01-13 14:12 | disposition left against medical advice (07) | DRG 69 ==
LOC: JER 11:03 → UNDOADMIN 12:55 → JERBED 12:55
PROVIDERS: ADMIT Family Medicine; ATTEND Family Medicine
DX: G45.8 Other transient cerebral ischemic attacks and related syndromes (principal); R29.810 Facial weakness; F41.8 Other specified anxiety disorders; M32.9 Systemic lupus erythematosus, unspecified; F17.210 Nicotine dependence, cigarettes, uncomplicated
CPT/HCPCS: 36415; 70450-TC; 80053; 80061; 83690; 83721; 84484; 85025; 85610; 85730; 93005; 93010; 99284-25

== ENCOUNTER 2019-02-13 15:38 | Emergency (ER) | payer OTHER ==
[2019-02-13] MEDS ORDERED: IBUPROFEN 600 MG TABLET (FP) PO ONE ×2 (15:51→15:57)
[2019-02-13 15:55] VITALS: BP 119/72; PULSE 100; TEMP 98.3; BMI 18.2
--- NOTE | 2019-02-13 16:04 | PDOC ---
History of Present Illness - General Chief Complaint: Pain Stated Complaint: LEFT SHOULDER PAIN Time Seen by Provider: 02/13/19 15:44 History Source: Patient, Spouse - History of Present Illness Initial Comments: 02/13/19 16:04 Doanto Haddad is a 53F with PMH rheumatoid arthritis presenting with L shoulder pain after picking up her granddaughter. Patient was picking up her granddaughter and felt a pop in her L shoulder along with immediate pain. Denies any other pain in her arm, hand, or back. Denies any prior injuries to L shoulder or any high intensity physical activities such as sports that could contribute to weakness at L shoulder joint. Takes gabapentin for neuropathic pain after an accidental injury to her right had that required surgery. Past History - Past Medical History Allergies/Adverse Reactions: Allergies Allergy/AdvReac Type Severity Reaction Status Date / Time No Known Allergies Allergy Verified 02/13/19 15:41 Home Medications: Ambulatory Orders Sertraline HCl 50 mg PO DAILY 12/10/18 clonazePAM [Klonopin -] 0.5 mg PO BID 12/10/18 Gabapentin [Neurontin -] 300 mg PO QID 02/13/19 Anemia: No Asthma: No Cancer: No Cardiac Disorders: No CVA: Yes (TIA) COPD: No CHF: No Dementia: No Diabetes: No GI Disorders: No Disorders: No HTN: No Hypercholesterolemia: No Liver Disease: No Psychiatric Problems: Yes (anxiety, depression) Seizures: No Thyroid Disease: No - Surgical History Abdominal Surgery: No Appendectomy: No Cardiac Surgery: No Cholecystectomy: No Lung Surgery: No Neurologic Surgery: No Orthopedic Surgery: Yes (Rt Hand) - Immunization History Immunization Up to Date: Yes - Suicide/Smoking/Psychosocial Hx Smoking History: Former smoker Have you smoked in the past 12 months: No Number of Cigarettes Smoked Daily: 10 If you are a former smoker, when did you quit?: 18 YEARS Information on smoking cessation initiated: No Hx Alcohol Use: No Drug/Substance Use Hx: No Substance Use Type: None Hx Substance Use Treatment: No Review of Systems - Review of Systems Able to Perform ROS?: Yes Is the patient limited Yoruba proficient: No Constitutional: No: Symptoms Reported HEENTM: No: Symptoms Reported Respiratory: No: Symptoms reported Cardiac (ROS): No: Symptoms Reported ABD/GI: No: Symptoms Reported : No: Symptoms Reported Musculoskeletal: Yes: Neck Pain, Other (L shoulder pain) Integumentary: No: Symptoms Reported Neurological: No: Symptoms reported Endocrine: No: Symptoms Reported Hematologic/Lymphatic: No: Symptoms Reported All Other Systems: Reviewed and Negative *Physical Exam - Vital Signs Last Vital Signs Temp Pulse Resp BP Pulse Ox 98.3 F 100 H 16 119/72 98 02/13/19 15:41 02/13/19 15:41 02/13/19 15:41 02/13/19 15:41 02/13/19 15:41 - Physical Exam General Appearance: Yes: Nourished, Appropriately Dressed, Thin. No: Apparent Distress HEENT: positive: EOMI, Normal Voice, Symmetrical. negative: Scleral Icterus (R) , Scleral Icterus (L) Neck: positive: Trachea midline, Normal Thyroid, Supple. negative: Tender, Lymphadenopathy (R), Lymphadenopathy (L) Respiratory/Chest: positive: Lungs Clear, Normal Breath Sounds. negative: Chest Tender, Respiratory Distress, Crackles, Rales, Rhonchi Cardiovascular: positive: Regular Rhythm, Regular Rate. negative: Edema Gastrointestinal/Abdominal: positive: Normal Bowel Sounds, Flat, Soft. negative : Tender Musculoskeletal: positive: Normal Inspection Extremity: positive: Normal Capillary Refill, Other (LUE: limited ROM at shoulder 2/2 pain, no gross deformities or dislocation notable, pulses present, color good, full ROM at elbow and fingers.) Integumentary: positive: Normal Color, Dry, Warm Neurologic: positive: Fully Oriented, Alert, Normal Mood/Affect, Normal Response Medical Decision Making - Medical Decision Making 02/13/19 16:04 Donato Haddad is a 53F with PMH rheumatoid arthritis presenting with L shoulder pain after picking up her granddaughter. Patient does not show any signs of a fracture or dislocation on exam, but will get XR L shoulder to evaluate for these. Giving her 600mg ibuprofen for pain. 02/13/19 16:17 XR L shoulder is grossly normal. Will put pt in sling and give instructions for ROM exercises and RICE. Will also include referral to ortho if needed. *DC/Admit/Observation/Transfer Diagnosis at time of Disposition: Left anterior shoulder pain - Discharge Dispostion Disposition: HOME Condition at time of disposition: Stable Decision to Admit order: No - Referrals Referrals: Seth Escobar MD [Primary Care Provider] - Sonny Medeiros MD [Staff Physician] - - Patient Instructions Printed Discharge Instructions: DI for Rotator Cuff Injury Additional Instructions: Today you were evaluated for left shoulder pain. The X-ray of your L shoulder does not show any signs of a fracture. You likely have pulled a muscle in your shoulder, and that is the cause of your pain. Please allow your left arm to rest for the next week. Do not do any heavy lifting with your arms. Apply ice to your shoulder as needed to help reduce the swelling. If you continue to experience pain, take an ibuprofen (Motrin) every 4 -6 hours as needed. We are giving you a sling to help rest your shoulder. However, please take care to move your left shoulder as much as possible as it heals to prevent it from getting stuck in a single position. If your shoulder pain does not improve, please follow-up with an orthopedic surgeon; we have included a referral to Dr. Medeiros. You may ultimately benefit from physical therapy and may require an MRI scan of your shoulder should your symptoms not improve. If you have any worsening shoulder pain, inability to move your shoulder at all , worsening neck pain, begin to have numbness and tingling in your fingers, or have any new or concerning symptoms, please return to the closest emergency room. - Post Discharge Activity
--- NOTE | 2019-02-13 16:35 | PDOC ---
Attending Attestation - Resident Resident Name: Nasir Waite - ED Attending Attestation I have performed the following: I have examined & evaluated the patient, The case was reviewed & discussed with the resident, I agree w/resident's findings & plan, Exceptions are as noted - HPI HPI: 02/13/19 18:46 Reviewed Residents HPI - Physicial Exam PE: 02/13/19 18:46 Reviewed Residents PE - Medical Decision Making 02/13/19 18:47 She left shoulder pain while lifting granddaughter decreased range of motion neurovascularly intact no acute fracture dislocation noted on x-ray Patient provided with sling ice or for follow-up Findings, need follow-up and strict return instructions discussed with patient.
== END 2019-02-13 16:28 | disposition home or self-care (01) ==
LOC: FER 15:38
DX: M25.512 Pain in left shoulder (principal); Z87.891 Personal history of nicotine dependence; F41.8 Other specified anxiety disorders; Z86.73 Personal history of transient ischemic attack (TIA), and cerebral infarction without residual deficits; M06.9 Rheumatoid arthritis, unspecified
CPT/HCPCS: 73030-TC-LT-FY; 99282-25

== ENCOUNTER 2019-02-25 08:01 | Inpatient (IN) | payer OTHER | END 2019-02-26 18:23 | disposition home or self-care (01) | LOC: JER 08:01 → JERBED 10:31 → JICU 11:35 ==

== ENCOUNTER 2019-02-28 10:50 | Emergency (ER) | payer OTHER ==
[2019-02-28 11:08] VITALS: BP 127/86; PULSE 95; TEMP 98.8; BMI 18.2
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
== END 2019-02-28 13:30 | disposition home or self-care (01) ==
LOC: FER 10:50
DX: M62.81 Muscle weakness (generalized) (principal); I10 Essential (primary) hypertension; Z86.73 Personal history of transient ischemic attack (TIA), and cerebral infarction without residual deficits
CPT/HCPCS: 70450-TC; 72170-TC-FY; 73552-TC-LT-FY; 99284-25

== ENCOUNTER 2019-04-02 16:56 | Emergency (ER) | payer SELFPAY ==
[2019-04-02 17:08] VITALS: TEMP 97.4; BMI 18.2
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
[2019-04-02] MEDS ORDERED: IBUPROFEN 600 MG TABLET (FP) PO ONE ×2 (19:13→19:21)
[2019-04-02] MEDS ORDERED: ARIPiprazole 5 MG TABLET (FP) PO ONE (19:18)
[2019-04-02] MEDS ORDERED: ARIPiprazole 5 MG TABLET (FP) ONE (19:21)
[2019-04-02 19:52] VITALS: BP 109/68; PULSE 92
== END 2019-04-02 19:52 | disposition home or self-care (01) ==
LOC: JER 16:56
DX: F31.89 Other bipolar disorder (principal); R45.4 Irritability and anger; M79.671 Pain in right foot; F17.210 Nicotine dependence, cigarettes, uncomplicated; Z86.73 Personal history of transient ischemic attack (TIA), and cerebral infarction without residual deficits; F41.8 Other specified anxiety disorders
CPT/HCPCS: 73610-TC-RT-FY; 73630-TC-RT-FY; 99281-25

== ENCOUNTER 2019-06-13 09:57 | Inpatient (IN) | payer SELFPAY ==
[2019-06-13 10:29] VITALS: BMI 18.2
[2019-06-13 10:34] LABS: BASO % 1.3 % (0-2.0); EOS % 3.7 % (0-4.5); HEMATOCRIT 38.9 % (32.4-45.2); HEMOGLOBIN 12.9 GM/dL (10.7-15.3); LYMPH % 26.1 % (8-40); MCHC 33.1 g/dl (32.0-36.0); MEAN CELL VOLUME 90.5 fl (80-96); MEAN PLT VOLUME 10.7 fl (7.5-11.1); MONO % 6.3 % (3.8-10.2); NEUT % 62.6 % (42.8-82.8); PLATELET COUNT 233 K/MM3 (134-434); RDW 13.4 % (11.6-15.6); WHITE BLOOD COUNT 7.8 K/mm3 (4.0-10.0)
[2019-06-13] MEDS ORDERED: ACETAMINOPHEN 1000 MG/100 ML VIAL (NON FORMULARY) IVPB ONE (10:35)
--- NOTE | 2019-06-13 10:35 | PDOC ---
History of Present Illness - General History Source: Patient, EMS, Spouse ( present at bedside), Old Records Exam Limitations: No Limitations - History of Present Illness Initial Comments: HPI: 53 y/o female presenting to [facility] ER complaining of left sided headache and "funny feeling" on the left side of her body. Symptoms were present when she woke from sleep approx. 1 hour ago. at bedside states pt "was fine" when she went to bed at approx. midnight. He noticed a difference on the right side of her face this morning. He further expressed concern that his is vaping and he has seen the commercials on TV that say this can cause strokes. Also reports his is upset over the of their son four years ago. Of note in the year 2019, this pt has undergone 7 HCT (including today), 2x Head CTA, 1x Neck CTA, 3x Carotid Doppler studies, 2x Brain MRI that have all been unremarkable for direct or indirect signs of ischemia or hemorrhage. Previous clinical notes indicate the pt has decreased sensation in left side. Medical Hx: - HTN - Stroke vs TIA s/p tPA (02/25/19) - Depression s/p of son in 2014 - Anxiety Review of Systems: 10 point review of systems completed. All systems negative except as noted above. Physical Examination: Vital signs and nursing notes reviewed. Constitutional- Well-developed, well-nourished adult female in no acute distress or obvious discomfort. Found semi-fowlers on hospital bed. Answered all questions appropriately and completely. Head- Normocephalic. No obvious external signs of trauma. Eyes- PERRL. EOMI. Sclerae white. Conjunctiva moist and not injected. Ears- Hearing grossly intact. Nose- No nasal discharge. Throat- Oral cavity and pharynx normal. No inflammation, swelling, exudate, or lesions. Teeth and gingiva in good general condition. Neck- Supple, trachea is midline. No JVD or thyromegaly. Cardiovascular / Chest- Regular rate and regular rhythm. No murmur, rubs, clicks , or gallops. Peripheral pulses- radial pulses full. Respiratory- Breathing unlabored. Equal chest rise and fall. Clear to auscultation bilaterally. No stridor, no wheezing, no rhonchi. Gastrointestinal- abdomen is soft, non-tender, non-distended. Neuro- Alert and oriented x4. Moving all four extremities spontaneously. Left facial droop with mild flattening of nasolabial fold. Symmetrical eyebrow raising. No slurred speech. No upper or lower extremity drift. Reports decreased sensation in left side of face, arm, and leg. Left upper and lower extremities proximal and distal strength 5/5 compared to 5/5 on right side. Left neck lateral rotation 4/5 compared to 5/5 on right. [employer] Hand strength 5/5 - equal and symmetric. Plantar flexion and dorsiflexion 4/5 on L and 5/5 on R. No nuchal rigidity. Skin- Warm, dry, and intact. Psych- Affect- flat, does not maintain eye contact. Mood- unable to assess. Speech was non-labored, non-pressured. Dressed and groomed appropriately. MDM: 53 y/o female presenting with left facial droop, left sided numbness, and headache. H/o of similar symptoms. Afebrile. Vitals unremarkable for hypotension or tachycardia. Physical exam as described above. ED CVA/TIA order set initiated. HCT unremarkable for hemorrhage or evidence of ischemia. Low suspicion for CVA/TIA. Suspect possible migraine with complex features, depression/anxiety with complex features, or conversion disorder. Regardless, Pt is outside of the window for tPA. Will discuss case further with neurology service. Ordered Tylenol, Reglan, and IVFB. 13 Jun 2019 10:19 AM Page sent for Dr. Lucero, covering physician for Dr. Douglass, through office answering service. Awaiting call back. 13 Jun 2019 11:18 AM Telephone discussion with Dr. Lucero. Verbally appraised of the pts HPI, ED course, and current plan of management. Requested pt be given a full dose ASA. Agrees no indicated for tPA. Will evaluate the pt at bedside. Reviewed laboratory data. No significant derangement. ED Attending discussed case with SHIKHA Rosales. Will admit the pt to the stroke floor for Dr. Escobar. Jose Garcia M.D., PGY2 Emergency Medicine Resident <Jose Garcia - Last Filed: 06/13/19 13:13> <Ratna Fuentes - Last Filed: 06/14/19 09:59> - General Chief Complaint: CVA/TIA Stated Complaint: CVA/TIA Time Seen by Provider: 06/13/19 10:03 NIH Stroke Scale - Last Known Well Date/Time & Onset Date Last Known Well: 06/12/19 Time Last Known Well: 23:59 - Initial Evaluation Level of consciousness: Alert Ask patient the month and their age: Answers both correctly Ask patient to open & close eyes; make fist and let go: Obeys both correctly Best gaze (horizontal eye movement): Normal Visual field testing: No visual field loss Facial paresis (Show teeth/raise eyebrows/close eyes tight): Minor paralysis ( flattened nasolabial fold, asymmetry on smiling) Motor Function: Left Arm: Normal Motor Function: Right Arm: Normal (extends arm 90 (or 45) degrees for 10 seconds without drift Motor Function: Left Leg: Normal (extends leg 30 degrees for 5 seconds without drift) Motor Function: Right Leg: Normal (extends leg 30 degrees for 5 seconds without drift) Limb Ataxia: No ataxia Sensory(Use pinprick test arms,legs,trunk,face/side to side): Mild to moderate decrease in sensation Best language (Describe picture, name items, read sentences): No Aphasia Dysarthria (read several words): Normal articulation Extinction and Inattention: No abnormality - Total Score NIH Stroke Scale Score: 2 <Jose Garcia - Last Filed: 06/13/19 13:13> Past History - Past Medical History Anemia: No Asthma: No Cancer: No Cardiac Disorders: No CVA: Yes (tia) COPD: No CHF: No Dementia: No Diabetes: No GI Disorders: No Disorders: No HTN: No Hypercholesterolemia: No Liver Disease: No Psychiatric Problems: Yes (anxiety, depression) Seizures: No Thyroid Disease: No - Surgical History Abdominal Surgery: No Appendectomy: No Cardiac Surgery: No Cholecystectomy: No Lung Surgery: No Neurologic Surgery: No Orthopedic Surgery: Yes (Rt Hand) - Immunization History Immunization Up to Date: Yes - Psycho Social/Smoking Cessation Hx Smoking History: Current some day smoker Have you smoked in the past 12 months: No Number of Cigarettes Smoked Daily: 10 If you are a former smoker, when did you quit?: 18 YEARS Information on smoking cessation initiated: Yes Hx Alcohol Use: No Drug/Substance Use Hx: No Substance Use Type: None Hx Substance Use Treatment: No <Jose Garcia - Last Filed: 06/13/19 13:13> <Ratna Fuentes - Last Filed: 06/14/19 09:59> - Past Medical History Allergies/Adverse Reactions: Allergies Allergy/AdvReac Type Severity Reaction Status Date / Time No Known Allergies Allergy Verified 06/13/19 10:35 Home Medications: Ambulatory Orders Gabapentin 300 mg PO HS 02/28/19 Bupropion HCl [Wellbutrin Xl -] 150 mg PO DAILY tab.sr.24h 06/13/19 Magnesium Oxide [Magnesium] 400 mg PO DAILY #30 capsule 06/13/19 Meloxicam 15 mg PO BID 06/13/19 Pramipexole Dihydrochloride [Mirapex -] 0.25 mg PO HS tablet 06/13/19 Sertraline HCl [Zoloft -] 25 mg PO DAILY tablet 06/13/19 Sumatriptan Succinate [Imitrex -] 50 mg PO Q6H PRN tablet 06/13/19 Topiramate [Topamax] 25 mg PO DAILY #30 tablet 06/13/19 clonazePAM [Klonopin -] 0.5 mg PO DAILY tablet MDD 0.5 06/13/19 *Physical Exam - Vital Signs Last Vital Signs Temp Pulse Resp BP Pulse Ox 98.2 F 69 18 105/88 100 06/13/19 09:57 06/13/19 09:57 06/13/19 09:57 06/13/19 09:57 06/13/19 09:57 <Jose Garcia - Last Filed: 06/13/19 13:13> - Vital Signs Last Vital Signs Temp Pulse Resp BP Pulse Ox 97.9 F 96 H 16 107/64 99 06/13/19 16:01 06/13/19 16:01 06/13/19 16:01 06/13/19 16:01 06/13/19 16:01 <Ratna Fuentes - Last Filed: 06/14/19 09:59> ED Treatment Course - LABORATORY CBC & Chemistry Diagram: 06/13/19 10:05 06/13/19 10:05 - RADIOLOGY Radiology Studies Ordered: Category Date Time Status HEAD CT (STROKE) [CT] Stat CT Scan 06/13/19 10:04 Completed <Jose Garcia - Last Filed: 06/13/19 13:13> - LABORATORY CBC & Chemistry Diagram: 06/13/19 10:05 06/13/19 10:05 - ADDITIONAL ORDERS Additional order review: 06/13/19 10:05 RBC 4.30 MCV 90.5 MCHC 33.1 RDW 13.4 MPV 10.7 Neutrophils % 62.6 Lymphocytes % 26.1 Monocytes % 6.3 Eosinophils % 3.7 Basophils % 1.3 - Medications Given in the ED: ED Medications Discontinued Medications Generic Name Dose Route Start Last Admin Trade Name Gregoria PRN Reason Stop Dose Admin Acetaminophen 1,000 mg 06/13/19 10:35 06/13/19 10:44 Ofirmev Injection - IVPB 06/13/19 10:36 1,000 mg ONCE ONE Administration Aspirin 324 mg 06/13/19 11:18 06/13/19 11:25 Asa - PO 06/13/19 11:19 324 mg ONCE ONE Administration Lactated Ringer's 1,000 ml 06/13/19 10:36 06/13/19 10:44 Lactated Ringers Solution IV 06/13/19 10:37 1,000 ml ONCE ONE Administration Metoclopramide HCl 10 mg 06/13/19 10:44 06/13/19 11:06 Reglan Injection - IVPUSH 06/13/19 10:45 10 mg ONCE ONE Administration <Ratna Fuentes - Last Filed: 06/14/19 09:59> Discharge - Discharge Information Problems reviewed: Yes - Admission Yes <Jose Garcia - Last Filed: 06/13/19 13:13> - Admission Yes <Ratna Fuentes - Last Filed: 06/14/19 09:59> - Discharge Information Clinical Impression/Diagnosis: Facial asymmetry, Weakness of left side of body, Head ache Condition: Stable Addendum entered and electronically signed by Jose Garcia, RESIDENT 06/13/19 13 :28: ED Progress Note - Progress Note Progress Note: 06/13/19 13:13 Held private conversation with the pt's . He reports the pt became very upset last night when she visit her sick grandfather in this hospital. He expressed concern the pt is hiding her vaping habit. Discussed that vaping may increase her risk in the senior care, but that her symptoms today are not likely related. We discussed my concern for the pt's number of imaging studies this year, and that this may have down stream effects unrelated to her other medical problems. Encouraged the pt to discuss outpatient psychiatric vs counseling services. reported they had a bad experience clinical psychiatry. Encouraged the discuss other referrals with the inpatient team. tPA Exclusion Checklist 0-3hr - Time Elapsed Date last known well: 06/12/19 Time last known well: 23:59 Elaspsed time: Day(s) and 13 Hour(s) and 28 Minutes - Thrombolytic Therapy Candidate Is the patient eligible for Thrombolytic Therapy?: No - Exclusion Criteria 0-3hr SBP greater than 185 or DBP greater than 110mmHg despite tx: No Recent IC/spinal surgery,head trauma or stroke w/in last 3mo: No Hx of previous IC hemorrhage, IC neoplasm, AVM or aneurysm: No Active internal bleeding: No Blding diathesis(low plt ct, inc PTT,INR>1.7 or use of NOAC): No Symptoms suggest subarachnoid hemorrhage: No CT demonstrates multilobar infarct(>1/3 cerebral hemiphere): No Arterial puncture at noncompressible site in previous 7 days: No Blood glucose concentration less than 50mg/dL (2.7mmol/L): No - Relative Exclusion Criteria 0-3h Life expectancy <1yr/severe co-morbid illness/ROADS SUPERINTENDENT on admit: No : No Patient/family refused: No Rapid improvement: No Stroke severity too mild: No Recent acute DC (w/in previous 3 months): No Seizure at onset with postictal residual neuro impairments: No Major surgery or serious trauma w/in previous 14 days: No Recent GI or hemorrhage (w/in previous 21 days): No - Ineligibility reason(s) Reasons No tPA given: Outside of window - delayed arrival
[2019-06-13] MEDS ORDERED: LACTATED RINGERS SOLUTION 1000 ML INFUS.BAG IV ONE (10:36)
[2019-06-13] MEDS ORDERED: ACETAMINOPHEN INJECTION 100 ML IVPB ONE (10:38)
[2019-06-13] MEDS ORDERED: METOCLOPRAMIDE HCL INJECTION 10 MG/2 ML VIAL IVPUSH ONE (10:44)
[2019-06-13 10:47] LABS: INR 1.06 (0.83-1.09); PROTHROMBIN TIME (PATIENT) 12.5 SEC (9.7-13.0)
[2019-06-13] MEDS ORDERED: METOCLOPRAMIDE HCL INJECTION 10 MG/2 ML VIAL ONE (10:59)
[2019-06-13 11:09] LABS: ALBUMIN 3.9 g/dl (3.4-5.0); BILIRUBIN,TOTAL 0.5 mg/dL (0.2-1); BLOOD UREA NITROGEN 18.6 mg/dL (7-18); CALCIUM 9.1 mg/dL (8.5-10.1); POTASSIUM 3.9 mmol/L (3.5-5.1); TOT PROT 7.1 g/dl (6.4-8.2)
[2019-06-13] MEDS ORDERED: ASPIRIN 325 MG TABLET PO ONE (11:18)
[2019-06-13] MEDS ORDERED: ASPIRIN 81 MG CHEWABLE TABLETS ONE (11:22)
--- NOTE | 2019-06-13 11:37 | PDOC ---
Attending Attestation - Resident Resident Name: Jose Garcia - ED Attending Attestation I have performed the following: I have examined & evaluated the patient, The case was reviewed & discussed with the resident, I agree w/resident's findings & plan - HPI HPI: 06/13/19 11:35 53 yo F presents with anxiety, depression, lupus, chronic Lyme, TIA (with residual numbness on left side) presenting with left face, arm and leg weakness/ decreased sensation beginning at approx 845AM this morning when she woke up. Complaining left sided headache, no meds taken Last normal before bedtime at 11AM. Had similar episodes multiple times in [place], had been admitted for TIA/stroke workup, MRI unremarkable and dxd with TIA. since then, pt states her left arm and legs have been more weak than the right side. no falls/trauma Denies DAN, LOC, seizure, urinary incontinence, bowel or bladder dysfunction She states she has been under high emotional stress regularly. Her son was murdered at [employer] a 4 years ago; she also vapes. PMD Dr Escobar - Physicial Exam PE: 06/13/19 11:35 Agree with the resident's HPI and PE as documented in the electronic medical record. malaised appearing, NCAT, EOMI, PERRL, no palsies. nl conjunctiva, anicteric; neck supple. lungs clear, RRR, no murmur. abdomen soft nontender. no rebound, guarding. Back nontender. ROWAN x4, no focal neuro deficits. No peripheral edema. normal color for ethnicity, WWP. Decreased sensation to Left face/upper and lower extrem to touch. 4/5 strength in LLE, slight drift. no cerebellar findings out of proportion. Speech clear. - Medical Decision Making 06/13/19 11:34 Vital Signs Temp Pulse Resp BP Pulse Ox 98.2 F 75 14 112/64 100 06/13/19 09:57 06/13/19 11:00 06/13/19 11:00 06/13/19 11:00 06/13/19 11:00 chart reviewed, prior presentation of similar sx, chronic Left sided weakness, usually exacerbated with stressors. given acuity of sx, initial code turner called, imaging expedited. see stroke documentation/nihss scoring. Laboratory results are within normal limits CT head is negative for acute intracranial hemorrhage or infarction. Neurology consultation was obtained on behalf of admitting team, spoke with Dr. Hewitt, agree with plan and admission and inpatient neurologic consultation labs and lytes wnl, reassuring. neg trop and lipid panel not tpa candidate, as last normal >11 hours ago from time of presentation. admit to Dr Escobar service, neuro eval. Dr Lucero consult, further advanced imaging s/o to SHIKHA Rosales. 06/13/19 11:36 06/13/19 12:00 06/13/19 12:01
--- NOTE | 2019-06-13 12:28 | HP ---
Admitting History and Physical - Primary Care Physician PCP: Seth Escobar - Admission Chief Complaint: Numbness to L upper and lower extremity History of Present Illness: Patient is a 53 y/o female with past medical history of Anxiety, Depression, Lupus, Chronic Lyme Disease, TIA (residual L sided numbness). Patient says she woke up at 8:30am with L sided headache accompanied with blurred vision from L eye, light sensitivity, L sided facial droop, and left extremity weakness. As per patient she was agitated the night before the symptoms occur and she does vape. 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 Cardiovascular: Yes: HTN Rheumatology: Yes: Lupus - Past Surgical History Past Surgical History: Yes: None - Smoking History Smoking history: Current some day smoker Have you smoked in the past 12 months: No Aproximately how many cigarettes per day: 10 If you are a former smoker, when did you quit?: 18 YEARS - Alcohol/Substance Use Hx Alcohol Use: No History of Substance Use: reports: None - Social History Usual Living Arrangement: Yes: With Spouse ADL: Independent History of Recent Travel: No Home Medications - Allergies Allergies/Adverse Reactions: Allergies Allergy/AdvReac Type Severity Reaction Status Date / Time No Known Allergies Allergy Verified 06/13/19 10:35 - Home Medications Home Medications: Ambulatory Orders Gabapentin 300 mg PO HS 02/28/19 Meloxicam 15 mg PO BID 06/13/19 Review of Systems - Review of Systems Constitutional: reports: Weakness Eyes: reports: Blurred Vision (l eft eye) HENT: reports: No Symptoms Neck: reports: No Symptoms Cardiovascular: reports: No Symptoms Respiratory: reports: No Symptoms Gastrointestinal: reports: No Symptoms Genitourinary: reports: No Symptoms Breasts: reports: No Symptoms Reported Musculoskeletal: reports: No Symptoms Integumentary: reports: No Symptoms Neurological: reports: Headache, Weakness (LUE and LLE) Endocrine: reports: No Symptoms Hematology/Lymphatic: reports: No Symptoms Psychiatric: reports: No Symptoms Physical Examination Vital Signs: Vital Signs Temperature 98.2 F 06/13/19 09:57 Pulse Rate 75 06/13/19 11:00 Respiratory Rate 14 06/13/19 11:00 Blood Pressure 112/64 06/13/19 11:00 O2 Sat by Pulse Oximetry (%) 100 06/13/19 11:00 Constitutional: Yes: No Distress, Calm Eyes: Yes: Conjunctiva Clear HENT: Yes: Atraumatic Neck: Yes: Supple Cardiovascular: Yes: Regular Rate and Rhythm Respiratory: Yes: Regular, CTA Bilaterally Gastrointestinal: Yes: Normal Bowel Sounds, Soft Musculoskeletal: Yes: Muscle Weakness Extremities: Yes: WNL Edema: No Neurological: Yes: Alert, Oriented, Weakness (LUE and LLE), Other (no facial droop noted) Psychiatric: Yes: Alert, Oriented Labs: CBC, BMP 06/13/19 10:05 06/13/19 10:05 Imaging - Results Cat Scan: Report Reviewed Problem List - Problems (1) TIA (transient ischemic attack) Assessment/Plan: -Neurology consult -Neuro checks -fall precautions -lipid panel -Carotid US from 02/25/19 shows normal carotid sonogram with no evidence of hemodynamically significant stenoses -Head CT scan shows no evidence of acute hemorrhage, no CT evidence of acute territorial , acute transcortical infarct -Tele monitoring Code(s): G45.9 - TRANSIENT CEREBRAL ISCHEMIC ATTACK, UNSPECIFIED (2) Weakness of left side of body Assessment/Plan: -PT -fall precautions Code(s): R53.1 - WEAKNESS Assessment/Plan see problem list SCDs
[2019-06-13] MEDS ORDERED: SUMAtriptan SUCCINATE 50 MG TABLET PO PRN (12:35)
--- NOTE | 2019-06-13 13:41 | EKG ---
Test Reason : Blood Pressure : / mmHG Vent. Rate : 065 BPM Atrial Rate : 065 BPM P-R Int : 146 ms QRS Dur : 070 ms QT Int : 406 ms P-R-T Axes : 081 084 073 degrees QTc Int : 422 ms NORMAL SINUS RHYTHM NORMAL ECG WHEN COMPARED WITH ECG OF 25-FEB-2019 08:10, NO SIGNIFICANT CHANGE WAS FOUND Confirmed by TAVARES KOWALSKI MD ([id number]) on 06/13/2019 1:40:59 PM Referred By: Confirmed By:TAVARES KOWALSKI MD
[2019-06-13 15:13] LABS: EPI CELLS 2.7 /HPF (0-5/HPF); HYALINE CASTS 2 /lpf (0-8); URINE APPEARANCE CLEAR; URINE BACTERIA 16.7 /hpf (NEGATIVE); URINE BILIRUBIN NEGATIVE (NEGATIVE); URINE COLOR YELLOW; URINE GLUCOSE (UA) NEGATIVE (NEGATIVE); URINE KETONE NEGATIVE (NEGATIVE); URINE LEUK ESTERASE NEGATIVE (NEGATIVE); URINE NITRITE NEGATIVE (NEGATIVE); URINE PROTEIN NEGATIVE (NEGATIVE); URINE RBC 1 /hpf (0-4); URINE UROBILINOGEN 0.2 mg/dL (0.2-1.0); URINE WBC 3 /hpf (0-5)
[2019-06-13 16:02] VITALS: BP 107/64; PULSE 96; TEMP 97.9
--- NOTE | 2019-06-13 17:23 | CON.NEURO ---
Consult Consult Specialty:: Nic Referred by:: emergency room - History of Present Illness Chief Complaint: weakness History of Present Illness: 53-year-old right-handed female patient with questionable history of prior TIAs presented to the hospital with a chief complain herself off waking up this morning at 8:30 in the morning with difficulty with the left sided numbness and weakness. Stroke protocol was initiated CAT scan of the head revealed no evidence of acute DIRECTORY COMPILER pathology. With interesting is the patient had multiple admissions with different neurological symptoms that led to introduction of thrombolyze his back in February 2019 according to the emergency room patient' s complete neurological workup including CAT scan of the head CT angiogram and MRI did not reveal any evidence of atherosclerotic disease or stroke. Patient with history of migraine patient does smoke patient with no family history of stroke in the young. 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 Cardio/Vascular: Yes: HTN Rheumatology: Yes: Lupus - Past Surgical History Past Surgical History: Yes: None - Alcohol/Substance Use Hx Alcohol Use: No History of Substance Use: reports: None - Smoking History Smoking history: Current some day smoker Have you smoked in the past 12 months: No Aproximately how many cigarettes per day: 10 If you are a former smoker, when did you quit?: 18 YEARS - Social History ADL: Independent History of Recent Travel: No Home Medications - Allergies Allergies/Adverse Reactions: Allergies Allergy/AdvReac Type Severity Reaction Status Date / Time No Known Allergies Allergy Verified 06/13/19 10:35 - Home Medications Home Medications: Ambulatory Orders Gabapentin 300 mg PO HS 02/28/19 Meloxicam 15 mg PO BID 06/13/19 Family Medical History Family History: Unremarkable Review of Systems - Review of Systems Constitutional: reports: No Symptoms Eyes: reports: No Symptoms HENT: reports: No Symptoms Neurological: reports: Change in Speech, Confusion, Dizziness, Headache, Parasthesia Physical Exam-Neuro Vital Signs: Vital Signs Temperature 97.9 F 06/13/19 16:01 Pulse Rate 96 H 06/13/19 16:01 Respiratory Rate 16 06/13/19 16:01 Blood Pressure 107/64 06/13/19 16:01 O2 Sat by Pulse Oximetry (%) 99 06/13/19 16:01 Constitutional: Yes: Well Nourished Neck: Yes: WNL Cardiovascular: Yes: WNL Labs: CBC, BMP 06/13/19 10:05 06/13/19 10:05 INR, PTT INR 1.06 (0.83-1.09) 06/13/19 10:05 - Neuro Exam Level Of Consciousness: Yes: Oriented to Person, Oriented to Place, Oriented to Time Eyes: Yes: PERRLA Speech: WNL Dominant Hand: Right Cranial Nerves II-XII Intact: Yes Gag: Present DTR's: 1+ Left Bicep, 1+ Right Bicep, 1+ Left Brachioradialis, 1+ Right Brachioradialis Response to light touch: Normal Response to pain prick: Normal Response to temperature: Normal Motor Strength: 3/5: Left Arm, Right Arm, Left Leg, Right Leg Gait: Deferred Imaging - Results Cat Scan: Image Reviewed Ultrasound: Image Reviewed Problem List - Problems (1) Facial asymmetry Assessment/Plan: No evidence of acute DIRECTORY COMPILER pathology. Complicated migraine headache. No need for any neurological further workup. Start magnesium 400 mg once daily for migraine prevention. Start Topamax 50 mg once daily first migraine prevention. Headache diary. Stay away from the trip 10. Check ESR C-reactive protein. Thank you very much for allowing me to be part of this patient care. Jaquelin Lucero M.D. Code(s): Q67.0 - CONGENITAL FACIAL ASYMMETRY
--- NOTE | 2019-06-13 19:07 | DS ---
Physical Examination Vital Signs: Vital Signs Temperature 97.9 F 06/13/19 16:01 Pulse Rate 96 H 06/13/19 16:01 Respiratory Rate 16 06/13/19 16:01 Blood Pressure 107/64 06/13/19 16:01 O2 Sat by Pulse Oximetry (%) 99 06/13/19 16:01 Findings/Remarks: Laboratory Tests 06/13/19 06/13/19 06/13/19 10:05 10:05 10:05 WBC 7.8 RBC 4.30 Hgb 12.9 Hct 38.9 MCV 90.5 MCH 30.0 MCHC 33.1 RDW 13.4 Plt Count 233 MPV 10.7 Absolute Neuts (auto) 4.9 Neutrophils % 62.6 Lymphocytes % 26.1 Monocytes % 6.3 Eosinophils % 3.7 Basophils % 1.3 Nucleated RBC % 0 PT with INR 12.50 INR 1.06 PTT (Actin FS) 34.0 Sodium Potassium Chloride Carbon Dioxide Anion Gap BUN Creatinine Est GFR (CKD-EPI)AfAm Est GFR (CKD-EPI)NonAf Random Glucose Calcium Total Bilirubin AST ALT Alkaline Phosphatase Creatine Kinase 148 Troponin I < 0.02 Total Protein Albumin Triglycerides Cholesterol Total LDL Cholesterol HDL Cholesterol Urine Color Urine Appearance Urine pH Ur Specific [place] Urine Protein Urine Glucose (UA) Urine Ketones Urine Blood Urine Nitrite Urine Bilirubin Urine Urobilinogen Ur Leukocyte Esterase Urine WBC (Auto) Urine RBC (Auto) Urine Casts (Auto) U Epithel Cells (Auto) Urine Bacteria (Auto) Blood Type Antibody Screen 06/13/19 06/13/19 06/13/19 10:05 10:05 14:40 WBC RBC Hgb Hct MCV MCH MCHC RDW Plt Count MPV Absolute Neuts (auto) Neutrophils % Lymphocytes % Monocytes % Eosinophils % Basophils % Nucleated RBC % PT with INR INR PTT (Actin FS) Sodium 143 Potassium 3.9 Chloride 111 H Carbon Dioxide 26 Anion Gap 6 L BUN 18.6 H Creatinine 1.0 Est GFR (CKD-EPI)AfAm 73.97 Est GFR (CKD-EPI)NonAf 63.82 Random Glucose 82 Calcium 9.1 Total Bilirubin 0.5 AST 18 ALT 20 Alkaline Phosphatase 75 Creatine Kinase Troponin I Total Protein 7.1 Albumin 3.9 Triglycerides 69 Cholesterol 158 Total LDL Cholesterol 84 HDL Cholesterol 58 Urine Color Yellow Urine Appearance Clear Urine pH 5.0 D Ur Specific [place] 1.021 Urine Protein Negative Urine Glucose (UA) Negative Urine Ketones Negative Urine Blood 1+ H Urine Nitrite Negative Urine Bilirubin Negative Urine Urobilinogen 0.2 Ur Leukocyte Esterase Negative Urine WBC (Auto) 3 Urine RBC (Auto) 1 Urine Casts (Auto) 2 U Epithel Cells (Auto) 2.7 Urine Bacteria (Auto) 16.7 Blood Type O POSITIVE Antibody Screen Negative Labs: CBC, BMP 06/13/19 10:05 06/13/19 10:05 Discharge Summary Problems reviewed: Yes Reason For Visit: FACIAL ASYMMETRY Current Active Problems Facial asymmetry (Acute) Hospital Course: Patient is a 53 y/o female with past medical history of Anxiety, Depression, Lupus, Chronic Lyme Disease, TIA (residual L sided numbness). Patient says she woke up at 8:30am with L sided headache accompanied with blurred vision from L eye, light sensitivity, L sided facial droop, and left extremity weakness. As per patient she was agitated the night before the symptoms occur and she does vape. Patient evaluated by Neurology Dr. Lucero and no acute [facility] [employer] pathology noted. Recommendations reviewed and appreciated. Head CT scan shows no acute infarct of ICH. Medications sent to pharmacy. Patient discahrged home with instructions to follow up with PMD and Neurology. Condition: Stable - Instructions Diet, Activity, Other Instructions: Follow up with PCP on Sunday Follow up with Neurology Dr Douglass in 2 weeks continue with medication as prescribed return to ER if develop severe pain, respiratory distress, chest pain, facial asymmetry, increase in L sided weakness Referrals: Seth Escobar MD [Primary Care Provider] - Vijay Douglass MD [Staff Physician] - Disposition: HOME - Home Medications Comprehensive Discharge Medication List: Ambulatory Orders Gabapentin 300 mg PO HS 02/28/19 Bupropion HCl [Wellbutrin Xl -] 150 mg PO DAILY tab.sr.24h 06/13/19 Magnesium Oxide [Magnesium] 400 mg PO DAILY #30 capsule 06/13/19 Meloxicam 15 mg PO BID 06/13/19 Pramipexole Dihydrochloride [Mirapex -] 0.25 mg PO HS tablet 06/13/19 Sertraline HCl [Zoloft -] 25 mg PO DAILY tablet 06/13/19 Sumatriptan Succinate [Imitrex -] 50 mg PO Q6H PRN tablet 06/13/19 Topiramate [Topamax] 25 mg PO DAILY #30 tablet 06/13/19 clonazePAM [Klonopin -] 0.5 mg PO DAILY tablet MDD 0.5 06/13/19
[2019-06-13] MEDS ORDERED: PATIENT'S OWN MEDICATION (NON-FORMULARY) (Meloxicam [Meloxicam] 15 MG) PO SCH (22:00)
[2019-06-13] MEDS ORDERED: PRAMIPEXOLE DIHYDROCHLORIDE 0.25 MG TABLET PO SCH (22:00)
[2019-06-13] MEDS ORDERED: GABAPENTIN 300 MG CAPSULE (FP) PO SCH (22:00)
[2019-06-14] MEDS ORDERED: clonazePAM 0.5 MG TABLET PO SCH (10:00)
[2019-06-14] MEDS ORDERED: ASPIRIN COATED 81 MG TABLET.EC PO SCH (10:00)
[2019-06-14] MEDS ORDERED: SERTRALINE HCL 25 MG TABLET (FP) PO SCH (10:00)
== END 2019-06-13 19:30 | disposition home or self-care (01) | DRG 54 ==
LOC: JER 09:57 → JERBED 11:48
PROVIDERS: ADMIT Family Medicine; ATTEND Family Medicine
DX: G43.109 Migraine with aura, not intractable, without status migrainosus (principal); R53.1 Weakness; F41.8 Other specified anxiety disorders; I10 Essential (primary) hypertension; Z86.73 Personal history of transient ischemic attack (TIA), and cerebral infarction without residual deficits
CPT/HCPCS: 36415; 70450-TC; 80053; 81003; 82465; 82550; 83718; 83721; 84478; 84484; 85025; 85610; 85730; 86850; 86900; 86901; 93005; 93010; 99285-25; J0131

== ENCOUNTER 2020-09-10 08:32 | Emergency (ER) | payer SELFPAY ==
[2020-09-10 09:04] VITALS: BP 123/83; PULSE 77; TEMP 98.3; BMI 18.2
[2020-09-10] MEDS ORDERED: ACETAMINOPHEN 325 MG TABLET (FP) PO ONE (09:28)
[2020-09-10] MEDS ORDERED: ACETAMINOPHEN 500 MG TABLET (FP) ONE (09:29)
== END 2020-09-10 09:50 | disposition home or self-care (01) ==
LOC: SUPCPDRO 08:32 → FER 08:32
DX: U07.1 COVID-19 (principal); R11.2 Nausea with vomiting, unspecified; R19.7 Diarrhea, unspecified
CPT/HCPCS: 71045-TC-FY; 93005; 99285-25; C9803; U0003

== ENCOUNTER 2021-02-05 20:17 | Emergency (ER) | payer OTHER ==
[2021-02-05 20:34] VITALS: BP 117/77; PULSE 76; TEMP 97.8; BMI 18.2
[2021-02-05] MEDS ORDERED: KETOROLAC TROMETHAMINE 60 MG/2 ML VIAL IM ONE (20:43)
[2021-02-05] MEDS ORDERED: KETOROLAC TROMETHAMINE 60 MG/2 ML VIAL ONE (20:45)
== END 2021-02-05 23:23 | disposition home or self-care (01) ==
LOC: FER 20:17
PROC: 3E023GC Introduction of Other Therapeutic Substance into Muscle, Percutaneous Approach (ICD-10-PCS; principal; 2021-02-05)
DX: M25.552 Pain in left hip (principal)
CPT/HCPCS: 73523-TC-FY; 73700-TC-RT; 99284-25

== ENCOUNTER 2022-02-11 20:01 | Emergency (ER) | payer SELFPAY ==
[2022-02-11] MEDS ORDERED: IBUPROFEN 600 MG TABLET (FP) PO ONE ×2 (20:12→20:13)
[2022-02-11 20:44] VITALS: BP 118/73; PULSE 83; RESP 18; TEMP 97.9; BMI 21.8
== END 2022-02-11 21:15 | disposition home or self-care (01) ==
LOC: FER 20:01
DX: S59.911A Unspecified injury of right forearm, initial encounter (principal)
CPT/HCPCS: 73070-TC-RT-FY; 73090-TC-RT-FY; 73110-TC-RT-FY; 99284-25

== ENCOUNTER 2022-03-02 11:12 | Emergency (ER) | payer OTHER ==
[2022-03-02 11:30] VITALS: BP 129/72; PULSE 77; RESP 20; TEMP 98.2
== END 2022-03-02 13:56 | disposition home or self-care (01) ==
LOC: FER 11:12
DX: S59.911A Unspecified injury of right forearm, initial encounter (principal); Y99.8 Other external cause status
CPT/HCPCS: 73090-TC-RT-FY; 99283-25

== ENCOUNTER 2024-03-24 18:43 | Emergency (ER) | payer MEDICARE, OTHER ==
[2024-03-24 19:05] VITALS: BP 120/74; PULSE 74; RESP 16; TEMP 98.2; BMI 21.2
[2024-03-24] MEDS ORDERED: MAG HYDROX/AL HYDROX/SIMETH 30 ML UNIT-DOSE CUP ONE (20:00)
[2024-03-24] MEDS ORDERED: KETOROLAC TROMETHAMINE 30 MG/1 ML VIAL ONE (20:00)
[2024-03-24] MEDS ORDERED: FAMOTIDINE 20 MG/50 ML IVPB 20 MG/50 ML MG IVPB ONE (20:00)
[2024-03-24] MEDS: KETOROLAC TROMETHAMINE 15 MG/ML VIAL IVPUSH ONE (20:02)
[2024-03-24] MEDS: MAG HYDROX/AL HYDROX/SIMETH -MYLANTA- ORAL SUSPENSION PO ONE (20:04)
[2024-03-24] MEDS: SODIUM CHLORIDE 0.9% 500 ML INFUS.BAG IV ONE (20:05)
[2024-03-24] MEDS: FAMOTIDINE 20 MG/50 ML IVPB 20 MG/50 ML MG IVPB ONE (20:05)
[2024-03-24 20:10] LABS: HEMATOCRIT 41.7 % (32.4-45.2); HEMOGLOBIN 13.7 G/dL (10.7-15.3); MCH 30.6 pg (25.7-33.7); MCHC 32.9 g/dl (32.0-36.0); MEAN CELL VOLUME 92.8 fl (80-96); MEAN PLT VOLUME 9.9 fl (7.5-11.1); PLATELET COUNT 300.9 10^3/uL (134-434); RBC 4.49 10^6/uL (3.60-5.2); WHITE BLOOD COUNT 16.5 10^3/uL (4.0-10.8)
[2024-03-24 20:28] LABS: ALBUMIN 4.3 g/dl (3.4-5.0); ALK PHOS 59 U/L (45-117); ANION GAP 11 mmol/L (4-13); BILIRUBIN,TOTAL 0.4 mg/dl (0.2-1); CALCIUM 9.5 mg/dl (8.5-10.1); CHLORIDE 102 mmol/L (98-107); CO2 29 mmol/L (21-32); GLUCOSE,RANDOM 171 mg/dl (74-106); POTASSIUM 4.1 mmol/L (3.5-5.1); SGOT/AST 12 U/L (15-37); SGPT/ALT 19 U/L (7-52); SODIUM 142 mmol/L (136-145); TOT PROT 6.6 g/dl (6.4-8.2)
[2024-03-24] MEDS ORDERED: metroNIDAZOLE 250 MG TABLET ONE (23:19)
[2024-03-24] MEDS ORDERED: SUCRALFATE 1 GM/10 ML UNIT DOSE CUPS ONE (23:19)
[2024-03-24] MEDS: SUCRALFATE 1 GM/10 ML UNIT DOSE CUPS PO SCH (23:21)
[2024-03-24] MEDS: metroNIDAZOLE 500 MG TABLET PO ONE (23:21)
[2024-03-24 23:28] LABS: PLATELET ESTIMATE ADEQUATE
== END 2024-03-24 23:54 | disposition home or self-care (01) ==
LOC: FER 18:43
PROC: 3E033GC Introduction of Other Therapeutic Substance into Peripheral Vein, Percutaneous Approach (ICD-10-PCS; principal; 2024-03-24)
PROC: 3E0333Z Introduction of Anti-inflammatory into Peripheral Vein, Percutaneous Approach (ICD-10-PCS; 2024-03-24)
DX: R10.12 Left upper quadrant pain (principal); R19.7 Diarrhea, unspecified; T62.91XA Toxic effect of unspecified noxious substance eaten as food, accidental (unintentional), initial encounter
CPT/HCPCS: 36415; 74178-TC; 80053; 81003; 81015; 83690; 84484; 85027; 86140; 87086; 93005; 99285-25

== ENCOUNTER 2024-12-24 20:19 | Emergency (ER) | payer SELFPAY ==
[2024-12-24 21:03] VITALS: BP 112/68; PULSE 70; RESP 16; TEMP 97.7; BMI 19.8
[2024-12-24] MEDS ORDERED: FAMOTIDINE 20 MG/50 ML IVPB 20 MG/50 ML MG IVPB ONE (21:14)
[2024-12-24] MEDS ORDERED: ONDANSETRON 4 MG/2 ML VIAL ONE (21:14)
[2024-12-24] MEDS: FAMOTIDINE 20 MG/50 ML IVPB 20 MG/50 ML MG IVPB ONE (21:25)
[2024-12-24] MEDS: SODIUM CHLORIDE 0.9% 1000 ML INFUS.BAG IV ONE (21:25)
[2024-12-24] MEDS: ONDANSETRON 4 MG/2 ML VIAL IVPUSH ONE (21:25)
[2024-12-24 21:43] LABS: ABSOLUTE IMMATURE GRANULOCYTES 0.01 x10^3/uL (0.0-0.031); BASOPHILS # 0.06 x10^3/uL (0.01-0.08); EOSINOPHIL % 2.9 % (0.7-5.8); EOSINOPHILS # 0.23 x10^3/uL (0.04-0.36); MCHC 32.5 g/dl (32.2-35.5); MEAN CELL VOLUME 89.5 fl (79.4-94.8); MEAN PLT VOLUME 12.6 fl (9.4-12.3); MONOCYTE # 0.69 x10^3/uL (0.24-0.86); MONOCYTE % 8.6 % (4.7-12.5); RDW 13.3 % (12.3-16.6)
[2024-12-24 22:06] LABS: ALK PHOS 63.0 U/L (45-117); CO2 28.0 mmol/L (21-32); CREATININE 1.3 mg/dl (0.6-1.3); GLUCOSE,RANDOM 78.0 mg/dl (74-106); SGOT/AST 15.0 U/L (15-37); SGPT/ALT 10.0 U/L (7-52); TOT PROT 6.5 g/dl (6.4-8.2)
[2024-12-25 01:28] LABS: HCV DIAGNOSTIC IN-HOUSE W/RFLX NON-REACTIVE (NONREACTIVE)
[2024-12-25 01:29] LABS: HIV INTERPRETATION NEGATIVE (NEGATIVE)
== END 2024-12-24 23:52 | disposition home or self-care (01) ==
LOC: FER 20:19
PROC: 3E033GC Introduction of Other Therapeutic Substance into Peripheral Vein, Percutaneous Approach (ICD-10-PCS; principal; 2024-12-24)
PROC: 3E033GC Introduction of Other Therapeutic Substance into Peripheral Vein, Percutaneous Approach (ICD-10-PCS; 2024-12-24)
DX: K52.9 Noninfective gastroenteritis and colitis, unspecified (principal); R10.32 Left lower quadrant pain; R10.33 Periumbilical pain; R11.0 Nausea
CPT/HCPCS: 36415; 74177-TC; 80053; 81003; 81015; 83690; 85025; 86803; 87086; 87389; 99285-25; Q9967